=== PATIENT | male | born 1965 | race African-American/Black ===

== ENCOUNTER 2016-09-25 16:23 | Inpatient (IN) | payer OTHER ==
[2016-09-25 18:03] VITALS: BMI 33.5
--- NOTE | 2016-09-25 18:48 | HP ---
CIWA Score - CIWA Score Nausea/Vomitin Muscle Tremors: 5 Anxiety: 4-Mod. Anxious/Guarded Agitation: 4-Moderately Restless Paroxysmal Sweats: 3 Orientation: 0-Oriented Tacttile Disturbances: 0-None Auditory Disturbances: 0-None Visual Disturbances: 0-None Headache: 0-None Present CIWA-Ar Total Score: 19 Admission ROS BHS - HPI Chief Complaint: withdrawal sx. Allergies/Adverse Reactions: Allergies Allergy/AdvReac Type Severity Reaction Status Date / Time maitake mushroom Allergy Mild Nausea Verified 03/05/14 13:17 strawberry [[place]] Allergy Mild Rash Verified 03/05/14 13:17 mushrooms Allergy Mild Rash Uncoded 03/05/14 13:17 History of Present Illness: 51 y/o man with a long hx. of alcoholism is admitted for detox. Pt. has been in previous detox,reports 2 yrs sober while attending [facility]. Exam Limitations: No Limitations - Ebola screening Have you traveled outside of the country in the last 21 days: No Have you had contact with anyone from an Ebola affected area: No Have you been sick,other than usual withdrawal symptoms: No Do you have a fever: No - Review of Systems Constitutional: Diaphoresis EENT: reports: No Symptoms Reported Respiratory: reports: No Symptoms reported Cardiac: reports: No Symptoms Reported GI: reports: Nausea, Abdominal cramping : reports: No Symptoms Reported Musculoskeletal: reports: Joint Pain, Joint Swelling (RLE), Other (Chronic stasis ulcer Rt. ankle) Integumentary: reports: Sweating Neuro: reports: Tremors Endocrine: reports: No Symptoms Reported Hematology: reports: No Symptoms Reported Psychiatric: reports: No Sypmtoms Reported Other Systems: Reviewed and Negative Patient History - Patient Medical History Hx Anemia: No Hx Asthma: No Hx Chronic Obstructive Pulmonary Disease (COPD): No Hx Cancer: No Hx Cardiac Disorders: No Hx Congestive Heart Failure: No Hx Hypertension: No Hx Hypercholesterolemia: No Hx Pacemaker: No HX Cerebrovascular Accident: No Hx Seizures: No Hx Dementia: No Hx Diabetes: No Hx Gastrointestinal Disorders: No Hx Liver Disease: No Hx Genitourinary Disorders: No (GONORRRHEA AT 18 YRS OLD WITH TREATMENT) Hx Sexually Transmitted Disorders: Yes (GC at 18 y/o) Hx Renal Disease (ESRD): No Hx Thyroid Disease: No Hx Human Immunodeficiency Virus (HIV): No Hx Hepatitis C: No Hx Depression: Yes (NO MEDS now does not want psych consult) Hx Suicide Attempt: No (DENIES) Hx Bipolar Disorder: No Hx Schizophrenia: No - Patient Surgical History Past Surgical History: No - PPD History Previous Implant?: Yes Date: 03/07/14 Results: 0 mm PPD to be Administered?: Yes - Smoking Cessation Smoking history: Current every day smoker Have you smoked in the past 12 months: Yes Aproximately how many cigarettes per day: 10 Hx Chewing Tobacco Use: No Initiated information on smoking cessation: Yes 'Breaking Loose' booklet given: 09/25/16 - Substance & Tx. History Hx Alcohol Use: Yes Hx Substance Use: No Substance Use Type: Alcohol Hx Substance Use Treatment: Yes (Detox & Rehab) - Substances Abused Alcohol Route: Oral Frequency: Daily Amount used: Vodka 2 pints & Beer >1(6pack) Age of first use: 17 Date of Last Use: 09/25/16 Family Disease History - Family Disease History Family Disease History: Diabetes: Mother (), Heart Disease: Father ( ), Sister (HTN) Admission Physical Exam [facility] - Vital Signs Vital Signs: Vital Signs - 24 hr 09/25/16 18:01 Temperature 98.4 F Pulse Rate 114 H Respiratory 18 Rate Blood Pressure 168/90 - Physical General Appearance: Yes: Alcohol on Breath, Tremorous, Sweating, Anxious HEENTM: Yes: Within Normal Limits Respiratory: Yes: Chest Non-Tender, Lungs Clear, Normal Breath Sounds Neck: Yes: Supple Breast: Yes: Breast Exam Deferred Cardiology: Yes: Regular Rhythm, Regular Rate, S1, S2 Abdominal: Yes: Normal Bowel Sounds, Soft, Protuberent Genitourinary: Yes: Within Normal Limits Back: Yes: Within Normal Limits Musculoskeletal: Yes: Other Extremities: Yes: Tremors, Pedal Edema (chronic RLE edema with chronic vascular ulcer) Neurological: Yes: Fully Oriented, Alert Integumentary: Yes: Diaphoresis Lymphatic: Yes: Within Normal Limits - Diagnostic (1) PVD (peripheral vascular disease) Current Visit: Yes Status: Acute (2) Stasis leg ulcer Current Visit: Yes Status: Chronic Qualifiers: Laterality: right Qualified Code(s): I83.019 - Varicose veins of right lower extremity with ulcer of unspecified site (3) Alcohol dependence with uncomplicated withdrawal Current Visit: Yes Status: Acute Cleared for Admission [facility] - Detox or Rehab [facility] Level of Care: Medically Managed Detox Regimen/Protocol: Librium [facility] Breath Alcohol Content Breath Alcohol Content: 0.020 Urine Drug Screen - Results Drug Screen Negative: No Urine Drug Screen Results: BZO-Benzodiazepines
[2016-09-25] MEDS ORDERED: IBUPROFEN 400 MG TABLET (FP) PO PRN (19:11)
[2016-09-25] MEDS ORDERED: chlordiazePOXIDE HCL 25 MG CAPSULE PO PRN (19:11)
[2016-09-25] MEDS ORDERED: guaiFENesin/D-METHORPHAN HB 10 ML UNIT-DOSE CUPS PO PRN (19:11)
[2016-09-25] MEDS ORDERED: chlordiazePOXIDE HCL 25 MG CAPSULE PO ONE (19:11)
[2016-09-25] MEDS ORDERED: MAGNESIUM CITRATE 300 ML BOTTLE PO PRN (19:11)
[2016-09-25] MEDS ORDERED: P-EPHED 60MG/TRIPROLIDI 2.5MG TABLET PO PRN (19:11)
[2016-09-25] MEDS ORDERED: ACETAMINOPHEN 325 MG TABLET (FP) PO PRN (19:11)
[2016-09-25] MEDS ORDERED: LOPERAMIDE HCL 2 MG CAPSULE PO PRN (19:11)
[2016-09-25] MEDS ORDERED: hydrOXYzine PAMOATE 50 MG CAPSULE (FP) PO PRN (19:11)
[2016-09-25] MEDS ORDERED: diphenhydrAMINE HCL 50 MG CAPSULE PO PRN (19:11)
[2016-09-25] MEDS ORDERED: MENTHOL/PHENOL 1 EACH UD MM PRN (19:11)
[2016-09-25] MEDS ORDERED: MAG HYDROX/AL HYDROX/SIMETH 30 ML UNIT-DOSE CUP PO PRN (19:11)
[2016-09-25] MEDS ORDERED: MAGNESIUM HYDROX 2400MG/30ML ORAL SUSPENSION 30 ML CUP PO PRN (19:11)
[2016-09-25] MEDS: NICOTINE POLACRILEX 2 MG GUM BC PRN (20:26)
[2016-09-25] MEDS: NICOTINE 21 MG/24 HOURS TOPICAL PATCH TD SCH (20:49)
[2016-09-25] MEDS: chlordiazePOXIDE HCL 25 MG CAPSULE PO SCH (22:28)
[2016-09-25] MEDS: THIAMINE HCL 100 MG TABLET (FP) PO SCH (22:28)
[2016-09-26] MEDS: chlordiazePOXIDE HCL 25 MG CAPSULE PO SCH ×4 (05:43→22:31)
[2016-09-26 09:49] LABS: MCH 30.4 pg (25.7-33.7); MCHC 33.1 g/dl (32.0-35.9); MEAN CELL VOLUME 91.8 fl (80-96); MEAN PLT VOLUME 7.5 fl (7.5-11.1); PLATELET COUNT 171 K/MM3 (134-434); RDW 17.1 % (11.9-15.9); WHITE BLOOD COUNT 4.1 K/mm3 (4.0-10.0)
--- NOTE | 2016-09-26 09:52 | PN ---
S CIWA - CIWA Score Nausea/Vomitin-No Nausea/No Vomiting Muscle Tremors: 4-Moderate,w/Arms Extend Anxiety: 4-Mod. Anxious/Guarded Agitation: 4-Moderately Restless Paroxysmal Sweats: 3 Orientation: 0-Oriented Tacttile Disturbances: 0-None Auditory Disturbances: 0-None Visual Disturbances: 0-None Headache: 0-None Present CIWA-Ar Total Score: 15 BHS Progress Note (SOAP) Subjective: Sweating,interrupted sleep,anxiety,tremors,restless.Pt. was on coumadin for chronic DVT and PVD. Objective: 09/26/16 09:50 Vital Signs - 8 hr 09/26/16 09/26/16 03:50 06:15 Temperature 96.4 F L Pulse Rate 90 Respiratory 18 20 Rate Blood Pressure 146/85 Assessment: 09/26/16 09:51 Withdrawal sx. Plan: Continue detox
[2016-09-26 10:23] LABS: HIV 1 & 2 AB NEGATIVE; HIV 1 AGp24 NEGATIVE
[2016-09-26 10:27] LABS: ALBUMIN 3.1 g/dl (3.4-5.0); ALK PHOS 70 U/L (45-117); ANION GAP 9 (8-16); BILIRUBIN,TOTAL 0.7 mg/dL (0.2-1.0); CALCIUM 7.8 mg/dL (8.5-10.1); CO2 26 mmol/L (21-32); CREATININE 1.2 mg/dL (0.7-1.3); GLUCOSE,RANDOM 76 mg/dL (74-106); SGOT/AST 38 U/L (15-37); SGPT/ALT 29 U/L (12-78); TOT PROT 6.4 g/dl (6.4-8.2)
[2016-09-26] MEDS: PRENATAL VITAMINS W/ FOLIC ACID TABLET (FP) PO SCH (10:34)
[2016-09-26] MEDS: NICOTINE 21 MG/24 HOURS TOPICAL PATCH TD SCH (10:34)
[2016-09-26] MEDS: NICOTINE POLACRILEX 2 MG GUM BC PRN (10:34)
[2016-09-26] MEDS: MUPIROCIN 2% TOPICAL OINTMENT 22 GM TUBE TP SCH (11:40)
--- NOTE | 2016-09-26 12:41 | EKG ---
Test Reason : Blood Pressure : / mmHG Vent. Rate : 109 BPM Atrial Rate : 109 BPM P-R Int : 154 ms QRS Dur : 080 ms QT Int : 334 ms P-R-T Axes : 056 -34 029 degrees QTc Int : 449 ms SINUS TACHYCARDIA POSSIBLE LEFT ATRIAL ENLARGEMENT LEFT AXIS DEVIATION ABNORMAL ECG NO PREVIOUS ECGS AVAILABLE Confirmed by WINSTON RATLIFF, NIA ([id number]) on 09/26/2016 12:41:00 PM Referred By: Confirmed By:NIA MONTERO MD
[2016-09-26 13:49] LABS: URINE APPEARANCE CLEAR; URINE BILIRUBIN NEGATIVE (NEGATIVE); URINE BLOOD NEGATIVE (NEGATIVE); URINE COLOR LTYELLOW; URINE GLUCOSE (UA) NEGATIVE (NEGATIVE); URINE KETONE NEGATIVE (NEGATIVE); URINE LEUK ESTERASE NEGATIVE (NEGATIVE); URINE NITRITE NEGATIVE (NEGATIVE); URINE UROBILINOGEN NEGATIVE E.U./dl (0.2-1.0)
[2016-09-26 13:50] LABS: URINE PROTEIN 2+ (NEGATIVE)
[2016-09-26 14:01] LABS: URINE HYALINE CAST 1 /lpf; URINE MUCUS RARE; URINE RBC 1 /hpf (0-3); URINE WBC 1 /hpf (3-5)
[2016-09-26 14:11] LABS: INR 1.23 (0.82-1.09); PROTHROMBIN TIME (PATIENT) 13.6 SEC (9.98-11.88)
[2016-09-26] MEDS: WARFARIN NA 10 MG TABLET (FP) PO SCH (17:16)
[2016-09-26] MEDS: THIAMINE HCL 100 MG TABLET (FP) PO SCH (22:31)
[2016-09-27] MEDS: chlordiazePOXIDE HCL 25 MG CAPSULE PO SCH ×3 (05:17→17:15)
--- NOTE | 2016-09-27 09:40 | PN ---
[facility] CIWA - CIWA Score Nausea/Vomitin-No Nausea/No Vomiting Muscle Tremors: 3 Anxiety: 3 Agitation: 3 Paroxysmal Sweats: 3 Orientation: 0-Oriented Tacttile Disturbances: 1-Very Mild Itch/Numbness Auditory Disturbances: 0-None Visual Disturbances: 0-None Headache: 0-None Present CIWA-Ar Total Score: 13 BHS Progress Note (SOAP) Subjective: Anxiety,tremors,sweating,interrupted sleep,restless Objective: 09/27/16 09:38 Vital Signs - 8 hr 09/27/16 09/27/16 09/27/16 03:24 06:03 09:30 Temperature 96.1 F L 98.1 F Pulse Rate 73 81 Respiratory 18 18 20 Rate Blood Pressure 157/95 163/90 Laboratory Results - last 24 hr 09/26/16 09/26/16 09/26/16 07:00 07:00 07:00 WBC 4.1 RBC 3.65 L Hgb 11.1 L D Hct 33.5 L MCV 91.8 MCHC 33.1 RDW 17.1 H Plt Count 171 D MPV 7.5 D INR Sodium 142 Potassium 3.5 D Chloride 107 Carbon Dioxide 26 Anion Gap 9 BUN 17 Creatinine 1.2 Creat Clearance w eGFR > 60 Random Glucose 76 D Calcium 7.8 L Total Bilirubin 0.7 D AST 38 H D ALT 29 Alkaline Phosphatase 70 Total Protein 6.4 Albumin 3.1 L Urine Color Urine Appearance Urine pH Ur Specific [place] Urine Protein Urine Glucose (UA) Urine Ketones Urine Blood Urine Nitrite Urine Bilirubin Urine Urobilinogen Ur Leukocyte Esterase Urine RBC Urine WBC Hyaline Casts Urine Mucus RPR Titer Nonreactive HIV 1&2 Antibody Screen HIV P24 Antigen 09/26/16 09/26/16 09/26/16 07:00 09:45 11:35 WBC RBC Hgb Hct MCV MCHC RDW Plt Count MPV INR 1.23 H Sodium Potassium Chloride Carbon Dioxide Anion Gap BUN Creatinine Creat Clearance w eGFR Random Glucose Calcium Total Bilirubin AST ALT Alkaline Phosphatase Total Protein Albumin Urine Color Ltyellow Urine Appearance Clear Urine pH 6.0 Ur Specific [place] 1.017 Urine Protein 2+ H Urine Glucose (UA) Negative Urine Ketones Negative Urine Blood Negative Urine Nitrite Negative Urine Bilirubin Negative Urine Urobilinogen Negative Ur Leukocyte Esterase Negative Urine RBC 1 Urine WBC 1 Hyaline Casts 1 Urine Mucus Rare RPR Titer HIV 1&2 Antibody Screen Negative HIV P24 Antigen Negative labs noted,INR 1.23 Assessment: 09/27/16 09:39 Withdrawal sx. Plan: Continue detox
[2016-09-27] MEDS: MUPIROCIN 2% TOPICAL OINTMENT 22 GM TUBE TP SCH (10:27)
[2016-09-27] MEDS: PRENATAL VITAMINS W/ FOLIC ACID TABLET (FP) PO SCH (10:27)
[2016-09-27] MEDS: NICOTINE 21 MG/24 HOURS TOPICAL PATCH TD SCH (10:28)
[2016-09-27] MEDS: WARFARIN NA 10 MG TABLET (FP) PO SCH (17:15)
[2016-09-27] MEDS: NICOTINE POLACRILEX 2 MG GUM BC PRN (17:42)
[2016-09-27] MEDS: THIAMINE HCL 100 MG TABLET (FP) PO SCH (22:31)
[2016-09-27] MEDS: chlordiazePOXIDE 5 MG CAPSULE PO SCH (22:31)
[2016-09-28] MEDS: chlordiazePOXIDE 5 MG CAPSULE PO SCH ×3 (06:26→17:34)
[2016-09-28] MEDS: PRENATAL VITAMINS W/ FOLIC ACID TABLET (FP) PO SCH (10:56)
[2016-09-28] MEDS: NICOTINE 21 MG/24 HOURS TOPICAL PATCH TD SCH (10:56)
[2016-09-28] MEDS: MUPIROCIN 2% TOPICAL OINTMENT 22 GM TUBE TP SCH (10:56)
--- NOTE | 2016-09-28 16:35 | PN ---
BHS Progress Note (SOAP) Subjective: Sweating,interrupted sleep,restless Objective: 09/28/16 16:32 Vital Signs - 8 hr 09/28/16 09/28/16 09:20 13:14 Temperature 96.5 F L 96 F L Pulse Rate 74 86 Respiratory 18 20 Rate Blood Pressure 159/91 161/85 Laboratory Last Values WBC 4.1 K/mm3 (4.0-10.0) 09/26/16 07:00 RBC 3.65 M/mm3 (4.00-5.60) L 09/26/16 07:00 Hgb 11.1 GM/dL (11.7-16.9) L D 09/26/16 07:00 Hct 33.5 % (35.4-49) L 09/26/16 07:00 MCV 91.8 fl (80-96) 09/26/16 07:00 MCHC 33.1 g/dl (32.0-35.9) 09/26/16 07:00 RDW 17.1 % (11.9-15.9) H 09/26/16 07:00 Plt Count 171 K/MM3 (134-434) D 09/26/16 07:00 MPV 7.5 fl (7.5-11.1) D 09/26/16 07:00 INR 1.23 (0.82-1.09) H 09/26/16 11:35 Sodium 142 mmol/L (136-145) 09/26/16 07:00 Potassium 3.5 mmol/L (3.5-5.1) D 09/26/16 07:00 Chloride 107 mmol/L (98-107) 09/26/16 07:00 Carbon Dioxide 26 mmol/L (21-32) 09/26/16 07:00 Anion Gap 9 (8-16) 09/26/16 07:00 BUN 17 mg/dL (7-18) 09/26/16 07:00 Creatinine 1.2 mg/dL (0.7-1.3) 09/26/16 07:00 Creat Clearance w eGFR > 60 (>60) 09/26/16 07:00 Random Glucose 76 mg/dL (74-106) D 09/26/16 07:00 Calcium 7.8 mg/dL (8.5-10.1) L 09/26/16 07:00 Total Bilirubin 0.7 mg/dL (0.2-1.0) D 09/26/16 07:00 AST 38 U/L (15-37) H D 09/26/16 07:00 ALT 29 U/L (12-78) 09/26/16 07:00 Alkaline Phosphatase 70 U/L (45-117) 09/26/16 07:00 Total Protein 6.4 g/dl (6.4-8.2) 09/26/16 07:00 Albumin 3.1 g/dl (3.4-5.0) L 09/26/16 07:00 Urine Color L[place]ellow 09/26/16 09:45 Urine Appearance Clear 09/26/16 09:45 Urine pH 6.0 (5.0-8.0) 09/26/16 09:45 Ur Specific [place] 1.017 (1.001-1.035) 09/26/16 09:45 Urine Protein 2+ (NEGATIVE) H 09/26/16 09:45 Urine Glucose (UA) Negative (NEGATIVE) 09/26/16 09:45 Urine Ketones Negative (NEGATIVE) 09/26/16 09:45 Urine Blood Negative (NEGATIVE) 09/26/16 09:45 Urine Nitrite Negative (NEGATIVE) 09/26/16 09:45 Urine Bilirubin Negative (NEGATIVE) 09/26/16 09:45 Urine Urobilinogen Negative E.U./dl (0.2-1.0) 09/26/16 09:45 Ur Leukocyte Esterase Negative (NEGATIVE) 09/26/16 09:45 Urine RBC 1 /hpf (0-3) 09/26/16 09:45 Urine WBC 1 /hpf (3-5) 09/26/16 09:45 Hyaline Casts 1 /lpf 09/26/16 09:45 Urine Mucus Rare 09/26/16 09:45 RPR Titer Nonreactive (NONREACTIVE) 09/26/16 07:00 HIV 1&2 Antibody Screen Negative 09/26/16 07:00 HIV P24 Antigen Negative 09/26/16 07:00 labs noted.Pt. is receiving wet to dry treatment to rt. leg ulcer as well as bactroban. Assessment: 09/28/16 16:34 Withdrawal sx Chronic rt. leg ulcer Plan: Continue detox Continue wound care
[2016-09-28] MEDS: WARFARIN NA 10 MG TABLET (FP) PO SCH (17:34)
[2016-09-28] MEDS: NICOTINE POLACRILEX 2 MG GUM BC PRN (19:01)
[2016-09-28] MEDS: chlordiazePOXIDE HCL 10 MG CAPSULE PO SCH (22:40)
[2016-09-28] MEDS: THIAMINE HCL 100 MG TABLET (FP) PO SCH (22:40)
[2016-09-29] MEDS: chlordiazePOXIDE HCL 10 MG CAPSULE PO SCH (06:36)
--- NOTE | 2016-09-29 08:06 | PN ---
S Progress Note (SOAP) Subjective: ALERT,NO COMPLAINT Objective: 09/29/16 08:05 Vital Signs Temperature 97.1 F L 09/28/16 22:12 Pulse Rate 89 09/28/16 22:12 Respiratory Rate 18 09/29/16 06:32 Blood Pressure 163/96 09/28/16 22:12 O2 Sat by Pulse Oximetry (%) Assessment: 09/29/16 08:05 DETOX COMPLETED,NO WITHDRAWAL SYMPTOM Plan: DISCHARGE TODAY,FOLLOW UP WITH AFTER CARE PROGRAM ARRANGEMENT
--- NOTE | 2016-09-29 08:09 | DS ---
[facility] Detox Discharge Summary Admission Date: 09/25/16 Discharge Date: 09/29/16 - History Present History: Alcohol Dependence Additional Comments: FOLLOW UP WITH AFTER CARE PROGRAM ARRANGEMENT AND PMD FOR MEDICAL PROBLEM Pertinent Past History: PVD STASIS LEG ULCER - Physical Exam Results Vital Signs: Vital Signs Temperature 97.1 F L 09/28/16 22:12 Pulse Rate 89 09/28/16 22:12 Respiratory Rate 18 09/29/16 06:32 Blood Pressure 163/96 09/28/16 22:12 O2 Sat by Pulse Oximetry (%) Pertinent Admission Physical Exam Findings: WITHDRAWAL SYMPTOM - Treatment Hospital Course: Detox Protocol Followed, Detoxed Safely, Responded well, Discharged Condition Good, Rehab Referral Accepted Patient has Accepted a Rehab Referral to: [facility] - Medication Discharge Medications: Ambulatory Orders Warfarin Sodium [Coumadin] 10 mg PO DAILY 09/25/16 - AMA Did Patient Leave Against Medical Advice: No
--- NOTE | 2016-09-29 08:32 | PN ---
[facility] Progress Note Note: MATTHEW WILL FOLLOWED UP WITH [facility] FOR MONITORING OF COUMADIN AND INR UPON DISCHARGE
[2016-09-29 09:17] VITALS: BP 171/97; PULSE 86; TEMP 96.4
== END 2016-09-29 09:47 | disposition home or self-care (01) | DRG 775 ==
LOC: YASAS 16:23 → Y3N 19:22
PROVIDERS: ADMIT Internal Medicine; ATTEND Internal Medicine
PROC: HZ2ZZZZ Detoxification Services for Substance Abuse Treatment (ICD-10-PCS; principal; 2016-09-25)
DX: F10.230 Alcohol dependence with withdrawal, uncomplicated (principal); F17.210 Nicotine dependence, cigarettes, uncomplicated; I83.019 Varicose veins of right lower extremity with ulcer of unspecified site; I73.9 Peripheral vascular disease, unspecified; Z79.01 Long term (current) use of anticoagulants; Z87.438 Personal history of other diseases of male genital organs; R60.9 Edema, unspecified
CPT/HCPCS: 36415; 80053; 81003; 81015; 85027; 85610; 86593; 87389; 93005; 93010

== ENCOUNTER 2017-03-10 14:12 | Inpatient (IN) | payer OTHER ==
[2017-03-10 15:53] VITALS: BMI 33.5
--- NOTE | 2017-03-10 20:05 | HP ---
CIWA Score - CIWA Score Nausea/Vomitin-Mild Nausea/No Vomiting Muscle Tremors: 4-Moderate,w/Arms Extend Anxiety: 4-Mod. Anxious/Guarded Agitation: 4-Moderately Restless Paroxysmal Sweats: 1-Minimal Palms Moist Orientation: 1-Uncertain about Date Tacttile Disturbances: 0-None Auditory Disturbances: 0-None Visual Disturbances: 0-None Headache: 0-None Present CIWA-Ar Total Score: 15 Admission ROS S - HPI Chief Complaint: WITHDRAWAL SX Allergies/Adverse Reactions: Allergies Allergy/AdvReac Type Severity Reaction Status Date / Time maitake mushroom Allergy Mild Nausea Verified 03/10/17 18:45 strawberry [[place]] Allergy Mild Rash Verified 03/10/17 18:45 mushrooms Allergy Mild Rash Uncoded 03/10/17 18:45 History of Present Illness: 51 YEARS OLD MALE WITH LONG HISTORY OF ALCOHOL NICOTINE DEPENDENCE, HAS VASCULAR DISEASE AND CHRONIC WOULD RIGHT LOWER LEG X 1+ YEAR, FILTER 2007 LEFT GROIN, TREATED WITH COUMADIN LAST DOSE A MONTH AGO, AND DEPRESSION IS ADMITTED TO DETOX Exam Limitations: No Limitations - Ebola screening Have you traveled outside of the country in the last 21 days: No Have you had contact with anyone from an Ebola affected area: No Have you been sick,other than usual withdrawal symptoms: No Do you have a fever: No - Review of Systems Constitutional: Changes in sleep, Weight Stable EENT: reports: Blurred Vision (EYE GLASSES) Respiratory: reports: No Symptoms reported Cardiac: reports: No Symptoms Reported GI: reports: Nausea, Poor Fluid Intake, Abdominal cramping : reports: No Symptoms Reported Musculoskeletal: reports: Joint Pain (RIGHT LOWER WOUND) Integumentary: reports: Change in Color (BOTH LEGS), Lesions (RIGHT LOWER LEG ANKLE X 1 YEARS WET + DRY DRESSING AFTER SHOWER) Neuro: reports: Tremors Endocrine: reports: No Symptoms Reported Hematology: reports: No Symptoms Reported, Blood Clots (FILTER PLACEMENT LEFT GROIN) Psychiatric: reports: Judgement Intact, Depressed Other Systems: Reviewed and Negative Patient History - Patient Medical History Hx Anemia: No Hx Asthma: No Hx Chronic Obstructive Pulmonary Disease (COPD): No Hx Cancer: No Hx Cardiac Disorders: No Hx Congestive Heart Failure: No Hx Hypertension: No Hx Hypercholesterolemia: No Hx Pacemaker: No HX Cerebrovascular Accident: No Hx Seizures: No Hx Dementia: No Hx Diabetes: No Hx Gastrointestinal Disorders: No Hx Liver Disease: No Hx Genitourinary Disorders: No Hx Sexually Transmitted Disorders: No Hx Renal Disease (ESRD): No Hx Thyroid Disease: No Hx Human Immunodeficiency Virus (HIV): No Hx Hepatitis C: No Hx Depression: Yes Hx Suicide Attempt: No Hx Bipolar Disorder: No Hx Schizophrenia: No - Patient Surgical History Past Surgical History: No Hx Neurologic Surgery: No Hx Cataract Extraction: No Hx Cardiac Surgery: No Hx Lung Surgery: No Hx Breast Surgery: No Hx Breast Biopsy: No Hx Abdominal Surgery: No Hx Appendectomy: No Hx Cholecystectomy: No Hx Genitourinary Surgery: No Hx Orthopedic Surgery: No - PPD History Previous Implant?: Yes Documented Results: Negative w/proof Implanted On Prior [facility] Admission?: Yes Date: 09/27/16 Results: 0 mm PPD to be Administered?: No - Smoking Cessation Smoking history: Current every day smoker Have you smoked in the past 12 months: Yes Aproximately how many cigarettes per day: 10 Hx Chewing Tobacco Use: No Initiated information on smoking cessation: Yes 'Breaking Loose' booklet given: 03/10/17 - Substance & Tx. History Hx Alcohol Use: Yes Hx Substance Use: No Substance Use Type: Alcohol Hx Substance Use Treatment: Yes (09/19-09/29/16 [facility] - Substances Abused Alcohol Route: Oral Frequency: Daily Amount used: liquor- 2 pints, beer- 1 six pack Age of first use: 18 Date of Last Use: 03/10/17 Family Disease History - Family Disease History Family Disease History: Diabetes: Mother (), Heart Disease: Father ( ), Sister (HTN) Admission Physical Exam S - Vital Signs Vital Signs: Vital Signs - 24 hr 03/10/17 15:51 Temperature 98.9 F Pulse Rate 94 H Respiratory 18 Rate Blood Pressure 157/88 - Physical General Appearance: Yes: Appropriately Dressed, Moderate Distress, Tremorous, Irritable, Sweating, Anxious HEENTM: Yes: Hearing grossly Normal, Normal ENT Inspection, Normocephalic, Normal Voice, Other (EYE GLASSES) Respiratory: Yes: Chest Non-Tender, Lungs Clear, Normal Breath Sounds, No Respiratory Distress, No Accessory Muscle Use, Other (SMOKER'S COUSH) Neck: Yes: Supple, Trachea in good position Breast: Yes: Breasts Symetrical Cardiology: Yes: Regular Rhythm, S1, S2, Tachycardia Abdominal: Yes: Non Tender, Soft Genitourinary: Yes: Within Normal Limits Back: Yes: Within Normal Limits Musculoskeletal: Yes: full range of Motion, Gait Steady, Joint swelling (BOTH LEGS) Extremities: Yes: Non-Tender, Tremors, Coldness (LEGS), Pedal Edema (BOTH ANKLES ), Swelling (BOTH LEGS) Neurological: Yes: Alert, Motor Strength 5/5, Normal Response, Depressed Affect Integumentary: Yes: Dry, Warm, Pitting Edema (POOR VASCULAR CONDITION BOTH LEGS SWELL DISCOLORATION ANKLES LIMITED MOBILITY), Other (RIGHT ANKLE ULCER X 1+ YEAR WET TO DRY DRESSING DAILY AFTER SHOWER) Lymphatic: Yes: Within Normal Limits - Diagnostic (1) Alcohol dependence with uncomplicated withdrawal Current Visit: Yes Status: Acute (2) Stasis leg ulcer Current Visit: Yes Status: Chronic Qualifiers: Laterality: bilateral Qualified Code(s): I83.019 - Varicose veins of right lower extremity with ulcer of unspecified site; I83.029 - Varicose veins of left lower extremity with ulcer of unspecified site (3) Encounter for monitoring coumadin therapy Current Visit: Yes Status: Chronic (4) Depression (emotion) Current Visit: Yes Status: Suspected Qualifiers: Depression Type: dysthymia Qualified Code(s): F34.1 - Dysthymic disorder (5) Blood clot in vein Current Visit: Yes Status: Chronic Comment: COUMADIN INR PENDING Cleared for Admission [facility] - Detox or Rehab [facility] Level of Care: Medically Managed Detox Regimen/Protocol: Librium [facility] Breath Alcohol Content Breath Alcohol Content: 0 Urine Drug Screen - Results Drug Screen Negative: No Urine Drug Screen Results: BZO-Benzodiazepines
[2017-03-10] MEDS ORDERED: LOPERAMIDE HCL 2 MG CAPSULE PO PRN (20:09)
[2017-03-10] MEDS ORDERED: IBUPROFEN 400 MG TABLET (FP) PO PRN (20:09)
[2017-03-10] MEDS ORDERED: chlordiazePOXIDE HCL 25 MG CAPSULE PO ONE (20:09)
[2017-03-10] MEDS ORDERED: NICOTINE POLACRILEX 2 MG GUM BC PRN (20:09)
[2017-03-10] MEDS ORDERED: MAGNESIUM HYDROX 2400MG/30ML ORAL SUSPENSION 30 ML CUP PO PRN (20:09)
[2017-03-10] MEDS ORDERED: MAG HYDROX/AL HYDROX/SIMETH 30 ML UNIT-DOSE CUP PO PRN (20:09)
[2017-03-10] MEDS ORDERED: MAGNESIUM CITRATE 300 ML BOTTLE PO PRN (20:09)
[2017-03-10] MEDS ORDERED: chlordiazePOXIDE HCL 25 MG CAPSULE PO PRN (20:09)
[2017-03-10] MEDS ORDERED: guaiFENesin/D-METHORPHAN HB 10 ML UNIT-DOSE CUPS PO PRN (20:09)
[2017-03-10] MEDS ORDERED: ACETAMINOPHEN 325 MG TABLET (FP) PO PRN (20:09)
[2017-03-10] MEDS ORDERED: diphenhydrAMINE HCL 50 MG CAPSULE PO PRN (20:09)
[2017-03-10] MEDS ORDERED: MENTHOL/PHENOL 1 EACH UD MM PRN (20:09)
[2017-03-10] MEDS ORDERED: P-EPHED 60MG/TRIPROLIDI 2.5MG TABLET PO PRN (20:09)
[2017-03-10] MEDS ORDERED: hydrOXYzine PAMOATE 50 MG CAPSULE (FP) PO PRN (20:09)
[2017-03-10] MEDS ORDERED: cloNIDine HCL 0.1 MG TABLET PO ONE (20:51)
[2017-03-10] MEDS: WARFARIN NA 5 MG TABLET (UD) PO SCH (22:00)
[2017-03-10] MEDS: THIAMINE HCL 100 MG TABLET (FP) PO SCH (22:20)
[2017-03-10] MEDS: chlordiazePOXIDE HCL 25 MG CAPSULE PO SCH (22:20)
[2017-03-11 00:17] LABS: URINE APPEARANCE CLEAR; URINE BILIRUBIN NEGATIVE (NEGATIVE); URINE BLOOD 2+ (NEGATIVE); URINE COLOR YELLOW; URINE GLUCOSE (UA) NEGATIVE (NEGATIVE); URINE KETONE NEGATIVE (NEGATIVE); URINE LEUK ESTERASE NEGATIVE (NEGATIVE); URINE NITRITE NEGATIVE (NEGATIVE); URINE UROBILINOGEN NEGATIVE mg/dL (0.2-1.0)
[2017-03-11 00:18] LABS: URINE PROTEIN 3+ (NEGATIVE)
[2017-03-11 00:25] LABS: URINE MUCUS RARE; URINE RBC 18 /hpf (0-3); URINE WBC 2 /hpf (3-5)
[2017-03-11] MEDS: chlordiazePOXIDE HCL 25 MG CAPSULE PO SCH ×4 (06:24→22:16)
[2017-03-11] MEDS ORDERED: cloNIDine HCL 0.1 MG TABLET PO ONE (07:53)
--- NOTE | 2017-03-11 09:29 | EKG ---
Test Reason : Blood Pressure : / mmHG Vent. Rate : 082 BPM Atrial Rate : 082 BPM P-R Int : 152 ms QRS Dur : 090 ms QT Int : 376 ms P-R-T Axes : 061 -22 034 degrees QTc Int : 439 ms NORMAL SINUS RHYTHM POSSIBLE LEFT ATRIAL ENLARGEMENT BORDERLINE ECG WHEN COMPARED WITH ECG OF 25-SEP-2016 19:36, NO SIGNIFICANT CHANGE WAS FOUND Confirmed by MD DEN, MELY ([id number]) on 03/11/2017 9:29:16 AM Referred By: Confirmed By:MELY CRENSHAW MD
[2017-03-11] MEDS: PRENATAL VITAMINS W/ FOLIC ACID TABLET (FP) PO SCH (10:20)
[2017-03-11] MEDS: NICOTINE 14 MG/24 HOURS TOPICAL PATCH TD SCH (10:22)
[2017-03-11 11:01] LABS: MCH 31.9 pg (25.7-33.7); MCHC 32.5 g/dl (32.0-35.9); MEAN CELL VOLUME 98.3 fl (80-96); MEAN PLT VOLUME 7.7 fl (7.5-11.1); PLATELET COUNT 214 K/MM3 (134-434)
[2017-03-11 11:16] LABS: INR 1.06 (0.82-1.09); PROTHROMBIN TIME (PATIENT) 11.7 SEC (9.98-11.88)
[2017-03-11 11:19] LABS: ALBUMIN 3.4 g/dl (3.4-5.0); ALK PHOS 97 U/L (45-117); ANION GAP 11 (8-16); BILIRUBIN,TOTAL 0.8 mg/dL (0.2-1.0); CALCIUM 8.7 mg/dL (8.5-10.1); CO2 27 mmol/L (21-32); CREATININE 1.3 mg/dL (0.7-1.3); GLUCOSE,RANDOM 100 mg/dL (74-106); SGOT/AST 35 U/L (15-37); SGPT/ALT 30 U/L (12-78); TOT PROT 7.3 g/dl (6.4-8.2)
--- NOTE | 2017-03-11 12:04 | CONSULT ---
[facility] Psychiatric Consult - Data Date of interview: 03/11/17 Admission source: [facility] Identifying data: Patient refused psychiatric evaluation.Staff is made aware.
--- NOTE | 2017-03-11 14:45 | PN ---
[facility] CIWA - CIWA Score Nausea/Vomitin-Mild Nausea/No Vomiting Muscle Tremors: 4-Moderate,w/Arms Extend Anxiety: 3 Agitation: 1-Slight > Activity Paroxysmal Sweats: 3 Orientation: 0-Oriented Tacttile Disturbances: 3-Moderate Itch/Numb/Burn Auditory Disturbances: 2-Mild Harshness/Frighten Visual Disturbances: 0-None Headache: 0-None Present CIWA-Ar Total Score: 17 [facility] Progress Note (SOAP) Subjective: Tremors, Fatigue, Diarrhea, Body Aces, sweating. Objective: PT. A & O X 3. NO ACUTE DISTRESS. PT. DENIES CHEST PAIN. 03/11/17 14:42 Vital Signs Temperature 97.2 F L 03/11/17 13:41 Pulse Rate 85 03/11/17 13:41 Respiratory Rate 20 03/11/17 13:41 Blood Pressure 144/93 03/11/17 13:41 O2 Sat by Pulse Oximetry (%) Laboratory Tests 03/10/17 03/11/17 03/11/17 20:20 07:50 07:50 WBC 5.0 RBC 3.87 L Hgb 12.3 D Hct 38.0 MCV 98.3 H MCH 31.9 MCHC 32.5 RDW 18.0 H Plt Count 214 D MPV 7.7 INR 1.06 Sodium Potassium Chloride Carbon Dioxide Anion Gap BUN Creatinine Creat Clearance w eGFR Random Glucose Calcium Total Bilirubin AST ALT Alkaline Phosphatase Total Protein Albumin Urine Color Yellow Urine Appearance Clear Urine pH 5.0 Ur Specific [place] >= 1.030 H Urine Protein 3+ H Urine Glucose (UA) Negative Urine Ketones Negative Urine Blood 2+ H Urine Nitrite Negative Urine Bilirubin Negative Urine Urobilinogen Negative Ur Leukocyte Esterase Negative Urine RBC 18 Urine WBC 2 Ur Epithelial Cells Rare Urine Mucus Rare 03/11/17 07:50 WBC RBC Hgb Hct MCV MCH MCHC RDW Plt Count MPV INR Sodium 141 Potassium 3.5 Chloride 103 Carbon Dioxide 27 Anion Gap 11 BUN 14 Creatinine 1.3 Creat Clearance w eGFR 58.20 Random Glucose 100 D Calcium 8.7 Total Bilirubin 0.8 AST 35 ALT 30 Alkaline Phosphatase 97 D Total Protein 7.3 Albumin 3.4 Urine Color Urine Appearance Urine pH Ur Specific [place] Urine Protein Urine Glucose (UA) Urine Ketones Urine Blood Urine Nitrite Urine Bilirubin Urine Urobilinogen Ur Leukocyte Esterase Urine RBC Urine WBC Ur Epithelial Cells Urine Mucus LABS NOTED. Assessment: 03/11/17 14:43 WITHDRAWAL SYMPTOMS. Plan: CONTINUE DETOX. START AMLODIPINE, 5 MG PO DAILY FOR ELEVATED BP. REPEAT UA. INCREASE DAILY PO FLUID INTAKE.
[2017-03-11] MEDS: amLODIPine BESYLATE 5 MG TABLET (FP) PO SCH (16:15)
[2017-03-11] MEDS: WARFARIN NA 5 MG TABLET (UD) PO SCH (17:43)
[2017-03-11] MEDS: THIAMINE HCL 100 MG TABLET (FP) PO SCH (22:16)
[2017-03-11 22:33] LABS: URINE APPEARANCE CLEAR; URINE BILIRUBIN NEGATIVE (NEGATIVE); URINE BLOOD NEGATIVE (NEGATIVE); URINE COLOR YELLOW; URINE GLUCOSE (UA) NEGATIVE (NEGATIVE); URINE KETONE NEGATIVE (NEGATIVE); URINE LEUK ESTERASE NEGATIVE (NEGATIVE); URINE NITRITE NEGATIVE (NEGATIVE); URINE UROBILINOGEN NEGATIVE mg/dL (0.2-1.0)
[2017-03-11 22:39] LABS: URINE PROTEIN 3+ (NEGATIVE)
[2017-03-11 22:43] LABS: URINE BACTERIA RARE /hpf (NONE SEEN); URINE MUCUS RARE; URINE RBC 3 /hpf (0-3); URINE WBC 2 /hpf (3-5)
[2017-03-12] MEDS: chlordiazePOXIDE HCL 25 MG CAPSULE PO SCH ×3 (05:55→17:23)
[2017-03-12] MEDS: PRENATAL VITAMINS W/ FOLIC ACID TABLET (FP) PO SCH (10:13)
[2017-03-12] MEDS: amLODIPine BESYLATE 5 MG TABLET (FP) PO SCH (10:13)
[2017-03-12] MEDS: NICOTINE 14 MG/24 HOURS TOPICAL PATCH TD SCH (10:31)
--- NOTE | 2017-03-12 14:04 | PN ---
S CIWA - CIWA Score Nausea/Vomitin Muscle Tremors: 4-Moderate,w/Arms Extend Anxiety: 3 Agitation: 3 Paroxysmal Sweats: 3 Orientation: 0-Oriented Tacttile Disturbances: 1-Very Mild Itch/Numbness Auditory Disturbances: 0-None Visual Disturbances: 0-None Headache: 1-Very Mild CIWA-Ar Total Score: 17 S Progress Note (SOAP) Subjective: Sweating, chills, tremor, nausea, back pain Objective: 03/12/17 14:02 Last Vital Signs Temp Pulse Resp BP Pulse Ox 97.5 F L 68 18 150/91 03/12/17 13:07 03/12/17 13:07 03/12/17 13:07 03/12/17 13:07 Laboratory Tests 03/10/17 03/11/17 03/11/17 20:20 07:50 07:50 WBC 5.0 RBC 3.87 L Hgb 12.3 D Hct 38.0 MCV 98.3 H MCH 31.9 MCHC 32.5 RDW 18.0 H Plt Count 214 D MPV 7.7 INR 1.06 Sodium Potassium Chloride Carbon Dioxide Anion Gap BUN Creatinine Creat Clearance w eGFR Random Glucose Calcium Total Bilirubin AST ALT Alkaline Phosphatase Total Protein Albumin Urine Color Yellow Urine Appearance Clear Urine pH 5.0 Ur Specific [place] >= 1.030 H Urine Protein 3+ H Urine Glucose (UA) Negative Urine Ketones Negative Urine Blood 2+ H Urine Nitrite Negative Urine Bilirubin Negative Urine Urobilinogen Negative Ur Leukocyte Esterase Negative Urine RBC 18 Urine WBC 2 Ur Epithelial Cells Rare Urine Bacteria Urine Mucus Rare RPR Titer 03/11/17 03/11/17 03/11/17 07:50 07:50 22:00 WBC RBC Hgb Hct MCV MCH MCHC RDW Plt Count MPV INR Sodium 141 Potassium 3.5 Chloride 103 Carbon Dioxide 27 Anion Gap 11 BUN 14 Creatinine 1.3 Creat Clearance w eGFR 58.20 Random Glucose 100 D Calcium 8.7 Total Bilirubin 0.8 AST 35 ALT 30 Alkaline Phosphatase 97 D Total Protein 7.3 Albumin 3.4 Urine Color Yellow Urine Appearance Clear Urine pH 6.0 Ur Specific [place] >= 1.030 H Urine Protein 3+ H Urine Glucose (UA) Negative Urine Ketones Negative Urine Blood Negative Urine Nitrite Negative Urine Bilirubin Negative Urine Urobilinogen Negative Ur Leukocyte Esterase Negative Urine RBC 3 Urine WBC 2 Ur Epithelial Cells Rare Urine Bacteria Rare Urine Mucus Rare RPR Titer Nonreactive Labs noted: INR 1.06, patient is on coumadin 10mg PO qhs Assessment: 03/12/17 14:03 Withdrawal symptoms Plan: Continue detox PT/INR ordered in AM (patient on coumadin for DVT)
[2017-03-12] MEDS: WARFARIN NA 5 MG TABLET (UD) PO SCH (17:23)
[2017-03-12] MEDS: chlordiazePOXIDE 5 MG CAPSULE PO SCH (22:03)
[2017-03-12] MEDS: THIAMINE HCL 100 MG TABLET (FP) PO SCH (22:03)
[2017-03-13] MEDS: chlordiazePOXIDE 5 MG CAPSULE PO SCH ×3 (06:10→17:39)
--- NOTE | 2017-03-13 09:27 | PN ---
[facility] Progress Note (SOAP) Subjective: nausea, sweats, interrupted sleep, anxiety, tremors Objective: 03/13/17 09:27 Vital Signs - 8 hr 03/13/17 03/13/17 03/13/17 03:34 06:21 09:04 Temperature 97.0 F L Pulse Rate 80 Respiratory 18 18 18 Rate Blood Pressure 142/96 Laboratory Tests 03/10/17 03/11/17 03/11/17 20:20 07:50 07:50 WBC 5.0 RBC 3.87 L Hgb 12.3 D Hct 38.0 MCV 98.3 H MCH 31.9 MCHC 32.5 RDW 18.0 H Plt Count 214 D MPV 7.7 INR 1.06 Sodium Potassium Chloride Carbon Dioxide Anion Gap BUN Creatinine Creat Clearance w eGFR Random Glucose Calcium Total Bilirubin AST ALT Alkaline Phosphatase Total Protein Albumin Urine Color Yellow Urine Appearance Clear Urine pH 5.0 Ur Specific [place] >= 1.030 H Urine Protein 3+ H Urine Glucose (UA) Negative Urine Ketones Negative Urine Blood 2+ H Urine Nitrite Negative Urine Bilirubin Negative Urine Urobilinogen Negative Ur Leukocyte Esterase Negative Urine RBC 18 Urine WBC 2 Ur Epithelial Cells Rare Urine Bacteria Urine Mucus Rare RPR Titer 03/11/17 03/11/17 03/11/17 07:50 07:50 22:00 WBC RBC Hgb Hct MCV MCH MCHC RDW Plt Count MPV INR Sodium 141 Potassium 3.5 Chloride 103 Carbon Dioxide 27 Anion Gap 11 BUN 14 Creatinine 1.3 Creat Clearance w eGFR 58.20 Random Glucose 100 D Calcium 8.7 Total Bilirubin 0.8 AST 35 ALT 30 Alkaline Phosphatase 97 D Total Protein 7.3 Albumin 3.4 Urine Color Yellow Urine Appearance Clear Urine pH 6.0 Ur Specific [place] >= 1.030 H Urine Protein 3+ H Urine Glucose (UA) Negative Urine Ketones Negative Urine Blood Negative Urine Nitrite Negative Urine Bilirubin Negative Urine Urobilinogen Negative Ur Leukocyte Esterase Negative Urine RBC 3 Urine WBC 2 Ur Epithelial Cells Rare Urine Bacteria Rare Urine Mucus Rare RPR Titer Nonreactive Assessment: 03/13/17 09:27 withdrawal sx Plan: cont detox, fluids
[2017-03-13] MEDS: amLODIPine BESYLATE 5 MG TABLET (FP) PO SCH (10:06)
[2017-03-13] MEDS: PRENATAL VITAMINS W/ FOLIC ACID TABLET (FP) PO SCH (10:06)
[2017-03-13] MEDS: NICOTINE 14 MG/24 HOURS TOPICAL PATCH TD SCH (10:07)
[2017-03-13 10:34] LABS: INR 1.53 (0.82-1.09)
[2017-03-13] MEDS: WARFARIN NA 5 MG TABLET (UD) PO SCH (17:39)
[2017-03-13] MEDS: THIAMINE HCL 100 MG TABLET (FP) PO SCH (22:02)
[2017-03-13] MEDS: chlordiazePOXIDE HCL 10 MG CAPSULE PO SCH (22:02)
[2017-03-14 06:21] VITALS: TEMP 97.3
[2017-03-14] MEDS: chlordiazePOXIDE HCL 10 MG CAPSULE PO SCH ×2 (06:40→10:50)
[2017-03-14 09:11] VITALS: BP 145/86; PULSE 62
--- NOTE | 2017-03-14 09:57 | DS ---
[facility] Detox Discharge Summary Admission Date: 03/10/17 Discharge Date: 03/14/17 - History Present History: Alcohol Dependence Additional Comments: PT COMPLETED DETOX. NAD. ALERT O X 3. PT. PT REPORTS HE GETS MEDICAL CARE AT [facility] AND HIS PHARMACY IS [facility] IN [place]. REPORTS HE DOES NOT NEED ANY RX FOR WARFARIN AND DOES NOT TAKE BP MEDS AND DOESN'T NEED RX AT THIS TIME BECAUSE HE HAS HIS MED AT THE PHARMACY. Pertinent Past History: HX BLOOD CLOT IN VEIN - Physical Exam Results Vital Signs: Vital Signs Temperature 97.3 F L 03/14/17 06:20 Pulse Rate 62 03/14/17 09:11 Respiratory Rate 18 03/14/17 09:11 Blood Pressure 145/86 03/14/17 09:11 O2 Sat by Pulse Oximetry (%) Pertinent Admission Physical Exam Findings: WITHDRAWAL SX Laboratory Last Values WBC 5.0 K/mm3 (4.0-10.0) 03/11/17 07:50 RBC 3.87 M/mm3 (4.00-5.60) L 03/11/17 07:50 Hgb 12.3 GM/dL (11.7-16.9) D 03/11/17 07:50 Hct 38.0 % (35.4-49) 03/11/17 07:50 MCV 98.3 fl (80-96) H 03/11/17 07:50 MCH 31.9 pg (25.7-33.7) 03/11/17 07:50 MCHC 32.5 g/dl (32.0-35.9) 03/11/17 07:50 RDW 18.0 % (11.9-15.9) H 03/11/17 07:50 Plt Count 214 K/MM3 (134-434) D 03/11/17 07:50 MPV 7.7 fl (7.5-11.1) 03/11/17 07:50 INR 1.53 (0.82-1.09) H D 03/13/17 07:00 Sodium 141 mmol/L (136-145) 03/11/17 07:50 Potassium 3.5 mmol/L (3.5-5.1) 03/11/17 07:50 Chloride 103 mmol/L (98-107) 03/11/17 07:50 Carbon Dioxide 27 mmol/L (21-32) 03/11/17 07:50 Anion Gap 11 (8-16) 03/11/17 07:50 BUN 14 mg/dL (7-18) 03/11/17 07:50 Creatinine 1.3 mg/dL (0.7-1.3) 03/11/17 07:50 Creat Clearance w eGFR 58.20 (>60) 03/11/17 07:50 Random Glucose 100 mg/dL (74-106) D 03/11/17 07:50 Calcium 8.7 mg/dL (8.5-10.1) 03/11/17 07:50 Total Bilirubin 0.8 mg/dL (0.2-1.0) 03/11/17 07:50 AST 35 U/L (15-37) 03/11/17 07:50 ALT 30 U/L (12-78) 03/11/17 07:50 Alkaline Phosphatase 97 U/L (45-117) D 03/11/17 07:50 Total Protein 7.3 g/dl (6.4-8.2) 03/11/17 07:50 Albumin 3.4 g/dl (3.4-5.0) 03/11/17 07:50 Urine Color Yellow 03/11/17 22:00 Urine Appearance Clear 03/11/17 22:00 Urine pH 6.0 (5.0-8.0) 03/11/17 22:00 Ur Specific [place] >= 1.030 (1.005-1.025) H 03/11/17 22:00 Urine Protein 3+ (NEGATIVE) H 03/11/17 22:00 Urine Glucose (UA) Negative (NEGATIVE) 03/11/17 22:00 Urine Ketones Negative (NEGATIVE) 03/11/17 22:00 Urine Blood Negative (NEGATIVE) 03/11/17 22:00 Urine Nitrite Negative (NEGATIVE) 03/11/17 22:00 Urine Bilirubin Negative (NEGATIVE) 03/11/17 22:00 Urine Urobilinogen Negative mg/dL (0.2-1.0) 03/11/17 22:00 Ur Leukocyte Esterase Negative (NEGATIVE) 03/11/17 22:00 Urine RBC 3 /hpf (0-3) 03/11/17 22:00 Urine WBC 2 /hpf (3-5) 03/11/17 22:00 Ur Epithelial Cells Rare /hpf (FEW) 03/11/17 22:00 Urine Bacteria Rare /hpf (NONE SEEN) 03/11/17 22:00 Urine Mucus Rare 03/11/17 22:00 RPR Titer Nonreactive (NONREACTIVE) 03/11/17 07:50 - Treatment Hospital Course: Detox Protocol Followed, Detoxed Safely, Responded well, Discharged Condition Good, Rehab Referral Accepted Patient has Accepted a Rehab Referral to: [facility] - Medication Discharge Medications: Ambulatory Orders Amlodipine Besylate [Norvasc -] 5 mg PO DAILY #30 tablet 03/14/17 Warfarin Sodium [Coumadin] 10 mg PO DAILY #30 tab 03/14/17 - Diagnosis (1) Alcohol dependence with uncomplicated withdrawal Status: Acute (2) Blood clot in vein Status: Inactive (3) PVD (peripheral vascular disease) Status: Chronic - AMA Did Patient Leave Against Medical Advice: No
[2017-03-14] MEDS: PRENATAL VITAMINS W/ FOLIC ACID TABLET (FP) PO SCH (10:08)
[2017-03-14] MEDS: amLODIPine BESYLATE 5 MG TABLET (FP) PO SCH (10:08)
[2017-03-14] MEDS: NICOTINE 14 MG/24 HOURS TOPICAL PATCH TD SCH (10:08)
== END 2017-03-14 13:08 | disposition other institution (70) | DRG 775 ==
LOC: YASAS 14:12 → Y3N 18:45
PROVIDERS: ADMIT Internal Medicine Addiction Medicine; ATTEND Internal Medicine Addiction Medicine
PROC: HZ2ZZZZ Detoxification Services for Substance Abuse Treatment (ICD-10-PCS; principal; 2017-03-10)
DX: F10.230 Alcohol dependence with withdrawal, uncomplicated (principal); F17.210 Nicotine dependence, cigarettes, uncomplicated; F34.1 Dysthymic disorder; I73.9 Peripheral vascular disease, unspecified; L97.921 Non-pressure chronic ulcer of unspecified part of left lower leg limited to breakdown of skin; Z79.01 Long term (current) use of anticoagulants; I83.019 Varicose veins of right lower extremity with ulcer of unspecified site; I83.029 Varicose veins of left lower extremity with ulcer of unspecified site; R00.0 Tachycardia, unspecified; Z91.018 Allergy to other foods
CPT/HCPCS: 36415; 80053; 81003; 81015; 85027; 85610; 86593; 93005; 93010

== ENCOUNTER 2017-03-14 13:54 | Inpatient (IN) | payer OTHER ==
[2017-03-14] MEDS ORDERED: MAG HYDROX/AL HYDROX/SIMETH 30 ML UNIT-DOSE CUP PO PRN (14:36)
[2017-03-14] MEDS ORDERED: hydrOXYzine PAMOATE 50 MG CAPSULE (FP) PO PRN (14:36)
[2017-03-14] MEDS ORDERED: MENTHOL/PHENOL 1 EACH UD MM PRN (14:36)
[2017-03-14] MEDS ORDERED: MAGNESIUM CITRATE 300 ML BOTTLE PO PRN (14:36)
[2017-03-14] MEDS ORDERED: LOPERAMIDE HCL 2 MG CAPSULE PO PRN (14:36)
[2017-03-14] MEDS ORDERED: diphenhydrAMINE HCL 50 MG CAPSULE PO PRN (14:36)
[2017-03-14] MEDS ORDERED: guaiFENesin/D-METHORPHAN HB 10 ML UNIT-DOSE CUPS PO PRN (14:36)
[2017-03-14] MEDS ORDERED: MAGNESIUM HYDROX 2400MG/30ML ORAL SUSPENSION 30 ML CUP PO PRN (14:36)
[2017-03-14] MEDS ORDERED: P-EPHED 60MG/TRIPROLIDI 2.5MG TABLET PO PRN (14:36)
[2017-03-14] MEDS ORDERED: ACETAMINOPHEN 325 MG TABLET (FP) PO PRN (14:36)
--- NOTE | 2017-03-14 14:45 | HP ---
Psychiatrist Admission - Data Date of interview: 03/14/17 Admission source: 3N Identifying data: This is the third [facility] admission for this 51 years old single Black male, unemployed on SSI, homeless Medical History: Significant for ulcer right leg due to vascular disease and treatment for Gonorrhea at age 18. Smokes 10 cigarettes daily Psychiatric History: Reports that his first psychiatric treatment was 2-3 years ago when he was admitted to [facility] for depression and suicidal ideations. Told video game script writer that he was not suicidal but told them that he was so he could get admitted. Claims he stayed there for 3 weeks and treated with medication. Reports that last October, while on a medical unit at [place] for his leg, He was seen by the psychiatrist because he reported feeling depressed. He was prescribed Celexa 20mg and Risperdal 2 mg. Told video game script writer that he does not really have mental issues but reported symptoms for secondary gains. Physical/Sexual Abuse/Trauma History: Denies history of emotional, physical or sexual abuse as well as DV relationship Additional Comment: Reports history of 2 previous arrests including one felony conviction. No parole/probation currently Vital Signs: Vital Signs - 24 hr 03/14/17 14:06 Temperature 98.2 F Pulse Rate 77 Respiratory 18 Rate Blood Pressure 144/86 Allergies/Adverse Reactions: Allergies Allergy/AdvReac Type Severity Reaction Status Date / Time maitake mushroom Allergy Mild Nausea Verified 03/14/17 14:05 strawberry [[place]] Allergy Mild Rash Verified 03/14/17 14:05 mushrooms Allergy Mild Rash Uncoded 03/14/17 14:05 Date of last physical exam: 03/10/17 Concur with the findings of this exam: Yes - Substance Abuse/Tx History Hx Alcohol Use: Yes Substance Use Type: Alcohol (Started drinking alcohol at age 18, consumes 2 pints of liquor & a 6pk of beer daily. Lasr=t drink on 03/10/17) Hx Substance Use Treatment: Yes (4 previous inpt detox & 2 inpt rehab @ [facility]) - Admission Criteria Previous failed treatment: Yes Poor recovery environment: Yes Comorbidities: Yes Lacks judgement: Yes Mental Status Exam - Mental Status Exam Alert and Oriented to: Time, Place, Person Cognitive Function: Fair Patient Appearance: Well Groomed Mood: Hopeful, Euthymic Patient Behavior: Cooperative Speech Pattern: Clear Voice Loudness: Normal Thought Process: Intact, Goal Oriented Hallucinations: Denies Suicidal Ideation: Denies Homicidal Ideation: Denies Insight/Judgement: Fair Sleep: Well Appetite: Good Muscle strength/Tone: Normal Gait/Station: Normal Psychiatric Findings - Problem List ([place] 1, 2,3) (1) Alcohol dependence Current Visit: No Status: Acute (2) Nicotine dependence Current Visit: Yes Status: Acute (3) Substance induced mood disorder Current Visit: Yes Status: Acute (4) PVD (peripheral vascular disease) Current Visit: No Status: Chronic (5) Stasis leg ulcer Current Visit: No Status: Chronic Qualifiers: Laterality: bilateral Qualified Code(s): I83.019 - Varicose veins of right lower extremity with ulcer of unspecified site - Initial Treatment Plan Initial Treatment Plan: Monitor progress
[2017-03-14 15:00] VITALS: BMI 34.8
--- NOTE | 2017-03-14 16:28 | HP ---
[facility] Rehab Assess/Revision - Admission History Admitted to Rehab from: [facility] Date of Admission to Rehab: 03/14/17 - Vital signs Vital Signs: Vital Signs Period Temp Pulse Resp BP Sys/Irvin Pulse Ox Last 24 Hr 98.2 F 77 18 144/86 - Findings Detox History & Physical reviewed: Yes Concur with findings: Yes Comments/Additional Findings: transferred from detox to rehab admission as per protocol
[2017-03-14] MEDS: WARFARIN NA 5 MG TABLET (UD) PO SCH (17:01)
[2017-03-14] MEDS: THIAMINE HCL 100 MG TABLET (FP) PO SCH (21:57)
[2017-03-14] MEDS: POTASSIUM CHLORIDE ORAL LIQUID 20 MEQ/15 ML PO SCH (21:58)
[2017-03-15 09:46] LABS: INR 2.11 (0.82-1.09); PROTHROMBIN TIME (PATIENT) 23.6 SEC (9.98-11.88)
[2017-03-15] MEDS: amLODIPine BESYLATE 5 MG TABLET (FP) PO SCH (09:52)
[2017-03-15] MEDS: PRENATAL VITAMINS W/ FOLIC ACID TABLET (FP) PO SCH (09:52)
[2017-03-15] MEDS: BACITRACIN 0.9 GM PACKET TP SCH (09:53)
[2017-03-15] MEDS: POTASSIUM CHLORIDE ORAL LIQUID 20 MEQ/15 ML PO SCH ×2 (09:53→21:16)
[2017-03-15] MEDS: NICOTINE 14 MG/24 HOURS TOPICAL PATCH TD SCH (09:55)
[2017-03-15 09:56] LABS: ANION GAP 9 (8-16); CALCIUM 8.8 mg/dL (8.5-10.1); CO2 27 mmol/L (21-32); CREATININE 1.1 mg/dL (0.7-1.3); GLUCOSE,RANDOM 90 mg/dL (74-106)
[2017-03-15] MEDS ORDERED: WARFARIN NA 10 MG TABLET (FP) PO SCH ×2 (10:00)
[2017-03-15] MEDS: NICOTINE POLACRILEX 2 MG GUM BUC PRN (10:45)
[2017-03-15] MEDS: WARFARIN NA 5 MG TABLET (UD) PO SCH (17:03)
[2017-03-15] MEDS: THIAMINE HCL 100 MG TABLET (FP) PO SCH (21:16)
[2017-03-16] MEDS: PRENATAL VITAMINS W/ FOLIC ACID TABLET (FP) PO SCH (10:09)
[2017-03-16] MEDS: POTASSIUM CHLORIDE ORAL LIQUID 20 MEQ/15 ML PO SCH ×2 (10:09→22:09)
[2017-03-16] MEDS: amLODIPine BESYLATE 5 MG TABLET (FP) PO SCH (10:09)
[2017-03-16] MEDS: BACITRACIN 0.9 GM PACKET TP SCH (10:09)
[2017-03-16] MEDS: NICOTINE 14 MG/24 HOURS TOPICAL PATCH TD SCH (10:11)
[2017-03-16] MEDS: NICOTINE POLACRILEX 2 MG GUM BUC PRN (12:28)
[2017-03-16] MEDS: WARFARIN NA 5 MG TABLET (UD) PO SCH (17:40)
[2017-03-16] MEDS: THIAMINE HCL 100 MG TABLET (FP) PO SCH (22:09)
[2017-03-17] MEDS: PRENATAL VITAMINS W/ FOLIC ACID TABLET (FP) PO SCH (10:00)
[2017-03-17] MEDS: POTASSIUM CHLORIDE ORAL LIQUID 20 MEQ/15 ML PO SCH ×2 (10:00→21:13)
[2017-03-17] MEDS: BACITRACIN 0.9 GM PACKET TP SCH (10:01)
[2017-03-17] MEDS: NICOTINE POLACRILEX 2 MG GUM BUC PRN (10:01)
[2017-03-17] MEDS: NICOTINE 14 MG/24 HOURS TOPICAL PATCH TD SCH (10:01)
[2017-03-17] MEDS: amLODIPine BESYLATE 5 MG TABLET (FP) PO SCH (10:01)
[2017-03-17] MEDS ORDERED: AMMONIUM LACTATE 12% LOTION 225 GM BOTTLE TP PRN (13:04)
[2017-03-17] MEDS ORDERED: PT OWN MED DRAWER 7, Y5N ONE ×2 (16:55→17:39)
[2017-03-17] MEDS: WARFARIN NA 5 MG TABLET (UD) PO SCH (17:39)
[2017-03-17] MEDS: THIAMINE HCL 100 MG TABLET (FP) PO SCH (21:12)
[2017-03-18] MEDS: PRENATAL VITAMINS W/ FOLIC ACID TABLET (FP) PO SCH (10:00)
[2017-03-18] MEDS: BACITRACIN 0.9 GM PACKET TP SCH (10:00)
[2017-03-18] MEDS: amLODIPine BESYLATE 5 MG TABLET (FP) PO SCH (10:00)
[2017-03-18] MEDS: NICOTINE 14 MG/24 HOURS TOPICAL PATCH TD SCH (10:01)
[2017-03-18] MEDS: POTASSIUM CHLORIDE ORAL LIQUID 20 MEQ/15 ML PO SCH ×2 (10:01→21:34)
[2017-03-18] MEDS: WARFARIN NA 5 MG TABLET (UD) PO SCH (17:03)
[2017-03-18] MEDS: THIAMINE HCL 100 MG TABLET (FP) PO SCH (21:35)
[2017-03-19] MEDS: amLODIPine BESYLATE 5 MG TABLET (FP) PO SCH (10:02)
[2017-03-19] MEDS: PRENATAL VITAMINS W/ FOLIC ACID TABLET (FP) PO SCH (10:02)
[2017-03-19] MEDS: BACITRACIN 0.9 GM PACKET TP SCH (10:02)
[2017-03-19] MEDS: POTASSIUM CHLORIDE ORAL LIQUID 20 MEQ/15 ML PO SCH ×2 (10:02→21:19)
[2017-03-19] MEDS: NICOTINE 14 MG/24 HOURS TOPICAL PATCH TD SCH (10:03)
[2017-03-19] MEDS: NICOTINE POLACRILEX 2 MG GUM BUC PRN (10:04)
[2017-03-19] MEDS: WARFARIN NA 5 MG TABLET (UD) PO SCH (18:30)
[2017-03-19] MEDS: THIAMINE HCL 100 MG TABLET (FP) PO SCH (21:18)
[2017-03-20 09:57] LABS: INR 3.34 (0.82-1.09); PROTHROMBIN TIME (PATIENT) 37.7 SEC (9.98-11.88)
[2017-03-20] MEDS: PRENATAL VITAMINS W/ FOLIC ACID TABLET (FP) PO SCH (10:02)
[2017-03-20] MEDS: amLODIPine BESYLATE 5 MG TABLET (FP) PO SCH (10:02)
[2017-03-20] MEDS: BACITRACIN 0.9 GM PACKET TP SCH (10:03)
[2017-03-20] MEDS: NICOTINE POLACRILEX 2 MG GUM BUC PRN (10:03)
[2017-03-20] MEDS: POTASSIUM CHLORIDE ORAL LIQUID 20 MEQ/15 ML PO SCH ×2 (10:03→21:08)
[2017-03-20] MEDS: NICOTINE 14 MG/24 HOURS TOPICAL PATCH TD SCH (10:03)
[2017-03-20 17:13] LABS: URINE APPEARANCE CLEAR; URINE BILIRUBIN NEGATIVE (NEGATIVE); URINE BLOOD NEGATIVE (NEGATIVE); URINE COLOR YELLOW; URINE GLUCOSE (UA) NEGATIVE (NEGATIVE); URINE KETONE NEGATIVE (NEGATIVE); URINE LEUK ESTERASE NEGATIVE (NEGATIVE); URINE NITRITE NEGATIVE (NEGATIVE); URINE UROBILINOGEN NEGATIVE mg/dL (0.2-1.0)
[2017-03-20 17:15] LABS: URINE PROTEIN 2+ (NEGATIVE)
[2017-03-20 17:17] LABS: URINE RBC 1 /hpf (0-3); URINE WBC <1 /hpf (3-5)
[2017-03-20] MEDS ORDERED: WARFARIN NA 5 MG TABLET (UD) PO SCH (18:00)
[2017-03-20] MEDS: THIAMINE HCL 100 MG TABLET (FP) PO SCH (21:08)
[2017-03-21] MEDS: BACITRACIN 0.9 GM PACKET TP SCH (09:15)
[2017-03-21] MEDS: PRENATAL VITAMINS W/ FOLIC ACID TABLET (FP) PO SCH (09:15)
[2017-03-21] MEDS: POTASSIUM CHLORIDE ORAL LIQUID 20 MEQ/15 ML PO SCH (09:15)
[2017-03-21] MEDS: NICOTINE 14 MG/24 HOURS TOPICAL PATCH TD SCH (09:15)
[2017-03-21] MEDS: amLODIPine BESYLATE 5 MG TABLET (FP) PO SCH (09:15)
[2017-03-21 14:18] LABS: INR 3.95 (0.82-1.09); PROTHROMBIN TIME (PATIENT) 44.7 SEC (9.98-11.88)
[2017-03-21] MEDS ORDERED: WARFARIN NA 7.5 MG TABLET (FP) PO SCH (18:00)
[2017-03-21] MEDS: THIAMINE HCL 100 MG TABLET (FP) PO SCH (21:44)
[2017-03-22] MEDS: NICOTINE 14 MG/24 HOURS TOPICAL PATCH TD SCH (09:57)
[2017-03-22] MEDS: PRENATAL VITAMINS W/ FOLIC ACID TABLET (FP) PO SCH (09:57)
[2017-03-22] MEDS: BACITRACIN 0.9 GM PACKET TP SCH (09:57)
[2017-03-22] MEDS: amLODIPine BESYLATE 5 MG TABLET (FP) PO SCH (09:57)
[2017-03-22 10:13] LABS: INR 3.56 (0.82-1.09); PROTHROMBIN TIME (PATIENT) 40.2 SEC (9.98-11.88)
[2017-03-22] MEDS: WARFARIN NA 5 MG TABLET (UD) PO SCH (17:02)
[2017-03-22] MEDS: THIAMINE HCL 100 MG TABLET (FP) PO SCH (21:27)
[2017-03-23] MEDS: PRENATAL VITAMINS W/ FOLIC ACID TABLET (FP) PO SCH (10:01)
[2017-03-23] MEDS: NICOTINE POLACRILEX 2 MG GUM BUC PRN (10:02)
[2017-03-23] MEDS: NICOTINE 14 MG/24 HOURS TOPICAL PATCH TD SCH (10:02)
[2017-03-23] MEDS: BACITRACIN 0.9 GM PACKET TP SCH (10:02)
[2017-03-23] MEDS: amLODIPine BESYLATE 5 MG TABLET (FP) PO SCH (10:02)
[2017-03-23 10:33] LABS: INR 2.93 (0.82-1.09); PROTHROMBIN TIME (PATIENT) 32.9 SEC (9.98-11.88)
[2017-03-23] MEDS: WARFARIN NA 5 MG TABLET (UD) PO SCH (17:03)
[2017-03-23] MEDS: THIAMINE HCL 100 MG TABLET (FP) PO SCH (21:13)
[2017-03-24] MEDS: PRENATAL VITAMINS W/ FOLIC ACID TABLET (FP) PO SCH (09:55)
[2017-03-24] MEDS: amLODIPine BESYLATE 5 MG TABLET (FP) PO SCH (09:55)
[2017-03-24] MEDS: BACITRACIN 0.9 GM PACKET TP SCH (09:55)
[2017-03-24] MEDS: NICOTINE 14 MG/24 HOURS TOPICAL PATCH TD SCH (09:55)
[2017-03-24] MEDS: NICOTINE POLACRILEX 2 MG GUM BUC PRN (09:56)
[2017-03-24] MEDS: WARFARIN NA 5 MG TABLET (UD) PO SCH (18:05)
[2017-03-24] MEDS: THIAMINE HCL 100 MG TABLET (FP) PO SCH (21:12)
[2017-03-25] MEDS: BACITRACIN 0.9 GM PACKET TP SCH (09:43)
[2017-03-25] MEDS: PRENATAL VITAMINS W/ FOLIC ACID TABLET (FP) PO SCH (09:43)
[2017-03-25] MEDS: NICOTINE 14 MG/24 HOURS TOPICAL PATCH TD SCH (09:44)
[2017-03-25] MEDS: amLODIPine BESYLATE 5 MG TABLET (FP) PO SCH (09:44)
[2017-03-25] MEDS: WARFARIN NA 5 MG TABLET (UD) PO SCH (17:15)
[2017-03-25] MEDS: THIAMINE HCL 100 MG TABLET (FP) PO SCH (21:21)
[2017-03-26] MEDS: BACITRACIN 0.9 GM PACKET TP SCH (09:51)
[2017-03-26] MEDS: PRENATAL VITAMINS W/ FOLIC ACID TABLET (FP) PO SCH (09:51)
[2017-03-26] MEDS: NICOTINE 14 MG/24 HOURS TOPICAL PATCH TD SCH (09:51)
[2017-03-26] MEDS: amLODIPine BESYLATE 5 MG TABLET (FP) PO SCH (09:51)
[2017-03-26] MEDS: NICOTINE POLACRILEX 2 MG GUM BUC PRN ×2 (09:51→22:25)
[2017-03-26] MEDS: WARFARIN NA 5 MG TABLET (UD) PO SCH (17:44)
[2017-03-26] MEDS: THIAMINE HCL 100 MG TABLET (FP) PO SCH (21:39)
[2017-03-27] MEDS: PRENATAL VITAMINS W/ FOLIC ACID TABLET (FP) PO SCH (10:00)
[2017-03-27] MEDS: BACITRACIN 0.9 GM PACKET TP SCH (10:01)
[2017-03-27] MEDS: NICOTINE 14 MG/24 HOURS TOPICAL PATCH TD SCH (10:01)
[2017-03-27] MEDS: amLODIPine BESYLATE 5 MG TABLET (FP) PO SCH (10:01)
[2017-03-27] MEDS: NICOTINE POLACRILEX 2 MG GUM BUC PRN (10:02)
[2017-03-27 10:29] LABS: INR 1.46 (0.82-1.09); PROTHROMBIN TIME (PATIENT) 16.2 SEC (9.98-11.88)
[2017-03-27] MEDS ORDERED: WARFARIN NA 7.5 MG TABLET (FP) PO SCH (18:00)
[2017-03-27] MEDS: THIAMINE HCL 100 MG TABLET (FP) PO SCH (21:41)
[2017-03-28] MEDS: BACITRACIN 0.9 GM PACKET TP SCH (09:48)
[2017-03-28] MEDS: amLODIPine BESYLATE 5 MG TABLET (FP) PO SCH (09:48)
[2017-03-28] MEDS: PRENATAL VITAMINS W/ FOLIC ACID TABLET (FP) PO SCH (09:48)
[2017-03-28] MEDS: NICOTINE 14 MG/24 HOURS TOPICAL PATCH TD SCH (09:49)
[2017-03-28] MEDS: NICOTINE POLACRILEX 2 MG GUM BUC PRN (09:50)
[2017-03-28 10:00] LABS: INR 1.4 (0.82-1.09); PROTHROMBIN TIME (PATIENT) 15.5 SEC (9.98-11.88)
[2017-03-28] MEDS: WARFARIN NA 5 MG TABLET (UD) PO SCH (17:00)
[2017-03-28] MEDS: THIAMINE HCL 100 MG TABLET (FP) PO SCH (21:06)
[2017-03-29] MEDS: NICOTINE POLACRILEX 2 MG GUM BUC PRN (10:20)
[2017-03-29] MEDS: amLODIPine BESYLATE 5 MG TABLET (FP) PO SCH (10:20)
[2017-03-29] MEDS: NICOTINE 14 MG/24 HOURS TOPICAL PATCH TD SCH (10:20)
[2017-03-29] MEDS: BACITRACIN 0.9 GM PACKET TP SCH (10:20)
[2017-03-29] MEDS: PRENATAL VITAMINS W/ FOLIC ACID TABLET (FP) PO SCH (10:20)
[2017-03-29 14:04] LABS: INR 1.5 (0.82-1.09); PROTHROMBIN TIME (PATIENT) 16.6 SEC (9.98-11.88)
[2017-03-29] MEDS: WARFARIN NA 5 MG TABLET (UD) PO SCH (17:04)
[2017-03-29] MEDS: THIAMINE HCL 100 MG TABLET (FP) PO SCH (21:07)
[2017-03-30] MEDS: PRENATAL VITAMINS W/ FOLIC ACID TABLET (FP) PO SCH (09:47)
[2017-03-30] MEDS: BACITRACIN 0.9 GM PACKET TP SCH (09:47)
[2017-03-30] MEDS: NICOTINE 14 MG/24 HOURS TOPICAL PATCH TD SCH (09:47)
[2017-03-30] MEDS: amLODIPine BESYLATE 5 MG TABLET (FP) PO SCH (09:47)
[2017-03-30] MEDS: NICOTINE POLACRILEX 2 MG GUM BUC PRN (09:48)
[2017-03-30] MEDS: WARFARIN NA 5 MG TABLET (UD) PO SCH (18:21)
[2017-03-30] MEDS: THIAMINE HCL 100 MG TABLET (FP) PO SCH (21:27)
[2017-03-31] MEDS: amLODIPine BESYLATE 5 MG TABLET (FP) PO SCH (09:47)
[2017-03-31] MEDS: BACITRACIN 0.9 GM PACKET TP SCH (09:47)
[2017-03-31] MEDS: PRENATAL VITAMINS W/ FOLIC ACID TABLET (FP) PO SCH (09:47)
[2017-03-31] MEDS: NICOTINE 14 MG/24 HOURS TOPICAL PATCH TD SCH (09:48)
[2017-03-31] MEDS: WARFARIN NA 5 MG TABLET (UD) PO SCH (18:50)
[2017-03-31] MEDS: THIAMINE HCL 100 MG TABLET (FP) PO SCH (21:38)
[2017-04-01] MEDS: amLODIPine BESYLATE 5 MG TABLET (FP) PO SCH (09:49)
[2017-04-01] MEDS: PRENATAL VITAMINS W/ FOLIC ACID TABLET (FP) PO SCH (09:49)
[2017-04-01] MEDS: BACITRACIN 0.9 GM PACKET TP SCH (09:49)
[2017-04-01] MEDS: NICOTINE 14 MG/24 HOURS TOPICAL PATCH TD SCH (09:50)
[2017-04-01] MEDS: WARFARIN NA 5 MG TABLET (UD) PO SCH (16:59)
[2017-04-01] MEDS: THIAMINE HCL 100 MG TABLET (FP) PO SCH (21:57)
[2017-04-02] MEDS: PRENATAL VITAMINS W/ FOLIC ACID TABLET (FP) PO SCH (09:54)
[2017-04-02] MEDS: amLODIPine BESYLATE 5 MG TABLET (FP) PO SCH (09:54)
[2017-04-02] MEDS: BACITRACIN 0.9 GM PACKET TP SCH (09:54)
[2017-04-02] MEDS: NICOTINE 14 MG/24 HOURS TOPICAL PATCH TD SCH (09:55)
[2017-04-02] MEDS: WARFARIN NA 5 MG TABLET (UD) PO SCH (17:03)
[2017-04-02] MEDS: THIAMINE HCL 100 MG TABLET (FP) PO SCH (21:32)
[2017-04-03] MEDS: BACITRACIN 0.9 GM PACKET TP SCH (09:51)
[2017-04-03] MEDS: PRENATAL VITAMINS W/ FOLIC ACID TABLET (FP) PO SCH (09:51)
[2017-04-03] MEDS: amLODIPine BESYLATE 5 MG TABLET (FP) PO SCH (09:51)
[2017-04-03] MEDS: NICOTINE POLACRILEX 2 MG GUM BUC PRN (09:52)
[2017-04-03] MEDS: NICOTINE 14 MG/24 HOURS TOPICAL PATCH TD SCH (09:52)
[2017-04-03] MEDS: WARFARIN NA 5 MG TABLET (UD) PO SCH (17:02)
[2017-04-03] MEDS: THIAMINE HCL 100 MG TABLET (FP) PO SCH (21:07)
[2017-04-04] MEDS: BACITRACIN 0.9 GM PACKET TP SCH (09:07)
[2017-04-04] MEDS: PRENATAL VITAMINS W/ FOLIC ACID TABLET (FP) PO SCH (09:10)
[2017-04-04] MEDS: NICOTINE 14 MG/24 HOURS TOPICAL PATCH TD SCH (09:11)
[2017-04-04] MEDS: amLODIPine BESYLATE 5 MG TABLET (FP) PO SCH (09:13)
[2017-04-04] MEDS: WARFARIN NA 5 MG TABLET (UD) PO SCH (17:42)
[2017-04-04] MEDS: THIAMINE HCL 100 MG TABLET (FP) PO SCH (21:42)
[2017-04-05 10:12] LABS: INR 2.81 (0.82-1.09); PROTHROMBIN TIME (PATIENT) 31.6 SEC (9.98-11.88)
[2017-04-05] MEDS: amLODIPine BESYLATE 5 MG TABLET (FP) PO SCH (10:17)
[2017-04-05] MEDS: PRENATAL VITAMINS W/ FOLIC ACID TABLET (FP) PO SCH (10:17)
[2017-04-05] MEDS: BACITRACIN 0.9 GM PACKET TP SCH (10:17)
[2017-04-05] MEDS: NICOTINE POLACRILEX 2 MG GUM BUC PRN (10:18)
[2017-04-05] MEDS: NICOTINE 14 MG/24 HOURS TOPICAL PATCH TD SCH (10:18)
--- NOTE | 2017-04-05 16:05 | PN ---
[facility] Progress Note Note: INR within therapeutic range will leave on current dose of warfaring.
[2017-04-05] MEDS: WARFARIN NA 5 MG TABLET (UD) PO SCH (17:28)
[2017-04-05] MEDS: THIAMINE HCL 100 MG TABLET (FP) PO SCH (21:41)
[2017-04-06] MEDS: PRENATAL VITAMINS W/ FOLIC ACID TABLET (FP) PO SCH (09:59)
[2017-04-06] MEDS: amLODIPine BESYLATE 5 MG TABLET (FP) PO SCH (09:59)
[2017-04-06] MEDS: BACITRACIN 0.9 GM PACKET TP SCH (09:59)
[2017-04-06] MEDS: NICOTINE 14 MG/24 HOURS TOPICAL PATCH TD SCH (09:59)
[2017-04-06] MEDS: WARFARIN NA 5 MG TABLET (UD) PO SCH (17:18)
[2017-04-06] MEDS: THIAMINE HCL 100 MG TABLET (FP) PO SCH (22:16)
[2017-04-07] MEDS: amLODIPine BESYLATE 5 MG TABLET (FP) PO SCH (10:12)
[2017-04-07] MEDS: PRENATAL VITAMINS W/ FOLIC ACID TABLET (FP) PO SCH (10:12)
[2017-04-07] MEDS: NICOTINE 14 MG/24 HOURS TOPICAL PATCH TD SCH (10:13)
[2017-04-07] MEDS: BACITRACIN 0.9 GM PACKET TP SCH (10:13)
[2017-04-07] MEDS: NICOTINE POLACRILEX 2 MG GUM BUC PRN (10:14)
[2017-04-07] MEDS: WARFARIN NA 5 MG TABLET (UD) PO SCH (17:01)
[2017-04-07] MEDS: THIAMINE HCL 100 MG TABLET (FP) PO SCH (21:23)
[2017-04-08] MEDS: BACITRACIN 0.9 GM PACKET TP SCH (10:08)
[2017-04-08] MEDS: amLODIPine BESYLATE 5 MG TABLET (FP) PO SCH (10:09)
[2017-04-08] MEDS: PRENATAL VITAMINS W/ FOLIC ACID TABLET (FP) PO SCH (10:09)
[2017-04-08] MEDS: NICOTINE 14 MG/24 HOURS TOPICAL PATCH TD SCH (10:09)
[2017-04-08] MEDS ORDERED: WARFARIN NA 5 MG TABLET (UD) PO ONE (18:33)
[2017-04-08] MEDS: THIAMINE HCL 100 MG TABLET (FP) PO SCH (22:10)
[2017-04-09] MEDS: NICOTINE POLACRILEX 2 MG GUM BUC PRN ×2 (05:52→10:13)
[2017-04-09] MEDS: amLODIPine BESYLATE 5 MG TABLET (FP) PO SCH (10:12)
[2017-04-09] MEDS: BACITRACIN 0.9 GM PACKET TP SCH (10:12)
[2017-04-09] MEDS: NICOTINE 14 MG/24 HOURS TOPICAL PATCH TD SCH (10:12)
[2017-04-09] MEDS: PRENATAL VITAMINS W/ FOLIC ACID TABLET (FP) PO SCH (10:12)
[2017-04-09] MEDS: WARFARIN NA 5 MG TABLET (UD) PO SCH (17:39)
[2017-04-09] MEDS ORDERED: WARFARIN NA 10 MG TABLET (FP) PO SCH (18:00)
[2017-04-09] MEDS: THIAMINE HCL 100 MG TABLET (FP) PO SCH (21:58)
[2017-04-10] MEDS: NICOTINE 14 MG/24 HOURS TOPICAL PATCH TD SCH (10:25)
[2017-04-10] MEDS: BACITRACIN 0.9 GM PACKET TP SCH (10:25)
[2017-04-10] MEDS: PRENATAL VITAMINS W/ FOLIC ACID TABLET (FP) PO SCH (10:25)
[2017-04-10] MEDS: amLODIPine BESYLATE 5 MG TABLET (FP) PO SCH (10:25)
[2017-04-10] MEDS: NICOTINE POLACRILEX 2 MG GUM BUC PRN (10:26)
[2017-04-10 11:41] LABS: MCH 30.4 pg (25.7-33.7); MCHC 31.8 g/dl (32.0-35.9); MEAN CELL VOLUME 95.4 fl (80-96); MEAN PLT VOLUME 8.2 fl (7.5-11.1); PLATELET COUNT 221 K/MM3 (134-434); RDW 17.3 % (11.9-15.9); WHITE BLOOD COUNT 4.6 K/mm3 (4.0-10.0)
[2017-04-10 12:18] LABS: INR 2.76 (0.82-1.09)
[2017-04-10] MEDS: WARFARIN NA 5 MG TABLET (UD) PO SCH (17:05)
[2017-04-10] MEDS: THIAMINE HCL 100 MG TABLET (FP) PO SCH (22:13)
[2017-04-11 07:28] VITALS: TEMP 98.7
[2017-04-11] MEDS: amLODIPine BESYLATE 5 MG TABLET (FP) PO SCH (09:41)
[2017-04-11] MEDS: BACITRACIN 0.9 GM PACKET TP SCH (09:42)
[2017-04-11] MEDS: PRENATAL VITAMINS W/ FOLIC ACID TABLET (FP) PO SCH (09:42)
[2017-04-11] MEDS: NICOTINE 14 MG/24 HOURS TOPICAL PATCH TD SCH (09:42)
--- NOTE | 2017-04-11 10:05 | PN ---
Psychiatric Progress Note Vital Signs: Vital Signs Period Temp Pulse Resp BP Sys/Irvin Pulse Ox Last 24 Hr 98.7 F 76 18-18 130/78 Date of Session: 04/11/17 Chief Complaint:: Discharge Note HPI: Patient addressing Alcohol Dependence comorbid with Nicotine Dependence and Substance-Induced Mood Disorder ROS: PVD, stasis leg ulcer Current Medications: Active Medications Generic Name Dose Route Start Last Admin Trade Name Freq PRN Reason Stop Dose Admin Acetaminophen 650 mg 03/14/17 14:36 03/20/17 11:46 Tylenol - PO 650 mg Q4H PRN Administration FEVER OR PAIN Al Hydroxide/Mg Hydroxide 30 ml 03/14/17 14:36 Mylanta Oral Suspension - PO Q6H PRN DYSPEPSIA Amlodipine Besylate 5 mg 03/15/17 10:00 04/11/17 09:41 Norvasc - PO 5 mg DAILY NED Administration Bacitracin 0.9 gm 03/15/17 10:00 04/11/17 09:42 Bacitracin - TP 0.9 gm DAILY NED Administration Diphenhydramine HCl 50 mg 03/14/17 14:36 Benadryl - PO HSMR1 PRN FOR ITCHING Eucalyptus/Menthol/Phenol/Sorbitol 1 each 03/14/17 14:36 Cepastat Lozenge - MM Q4H PRN SORE THROAT Guaifenesin 10 ml 03/14/17 14:36 Robitussin Dm - PO Q6H PRN COUGH Hydroxyzine Pamoate 50 mg 03/14/17 14:36 Vistaril - PO Q4H PRN AGITATION Lactic Acid 1 applic 03/17/17 13:04 Lac-Hydrin 12 TP BID PRN DRY SKIN Loperamide HCl 4 mg 03/14/17 14:36 Imodium - PO Q6H PRN DIARRHEA Magnesium Hydroxide 30 ml 03/14/17 14:36 Milk Of Magnesia - PO DAILY PRN CONSTIPATION Nicotine 14 mg 03/15/17 10:00 04/11/17 09:42 Nicoderm Patch - TD Not Given DAILY NED Nicotine Polacrilex 2 mg 03/14/17 14:36 04/10/17 10:26 Nicorette Gum - BUC 2 mg Q2H PRN Administration NICOTINE REPLACEMENT RX Multivit/Folic Acid/Iron 1 tab 03/15/17 10:00 04/11/17 09:42 Vitamins (Sjr) - PO Not Given DAILY NED Pseudoephedrine/Triprolidine 1 combo 03/14/17 14:36 Actifed - PO TID PRN NASAL CONGESTION Thiamine HCl 100 mg 03/14/17 22:00 04/10/17 22:13 Vitamin B1 - PO 100 mg HS NED Administration Warfarin Sodium 10 mg 04/09/17 18:00 04/10/17 17:05 Coumadin - PO 10 mg DAILY@1800 NED Administration Current Side Effect: No Lab tests ordered: Yes Lab tests reviewed: Yes Provider note:: Patient has completed this program today. He has met his treatment goals and will continue to address his issues in intermediate accountant treament at [facility]. Told consumer loan underwriter that from his participation in this program, he has learned to keep the focus on himself and make meeting. He is stable for discharge today Total face to face time:: 35 Mental Status Exam - Mental Status Exam Alert and Oriented to: Time, Place, Person Cognitive Function: Fair Patient Appearance: Well Groomed Mood: Hopeful, Euthymic Affect: Appropriate Patient Behavior: Cooperative Speech Pattern: Clear Voice Loudness: Normal Thought Process: Intact, Goal Oriented Hallucinations: Denies Suicidal Ideation: Denies Homicidal Ideation: Denies Insight/Judgement: Fair Sleep: Well Appetite: Good Muscle strength/Tone: Normal Gait/Station: Normal Psychiatric Treatment Plan - Problem List (1) Alcohol dependence Current Visit: No (2) Nicotine dependence Current Visit: Yes (3) Substance induced mood disorder Current Visit: Yes (4) PVD (peripheral vascular disease) Current Visit: No (5) Stasis leg ulcer Current Visit: No Qualifiers: Laterality: bilateral Qualified Code(s): I83.019 - Varicose veins of right lower extremity with ulcer of unspecified site; I83.019 - Varicose veins of right lower extremity with ulcer of unspecified site; I83.019 - Varicose veins of right lower extremity with ulcer of unspecified site Initial treatment plan: Patient is discharged today and referred to [facility] for intermediate accountant treatment
--- NOTE | 2017-04-11 10:14 | PN ---
[facility] Progress Note Note: ADDENDUM Laboratory Last Values WBC 4.6 K/mm3 (4.0-10.0) 04/10/17 09:45 RBC 4.52 M/mm3 (4.00-5.60) 04/10/17 09:45 Hgb 13.7 GM/dL (11.7-16.9) D 04/10/17 09:45 Hct 43.1 % (35.4-49) 04/10/17 09:45 MCV 95.4 fl (80-96) 04/10/17 09:45 MCH 30.4 pg (25.7-33.7) 04/10/17 09:45 MCHC 31.8 g/dl (32.0-35.9) L 04/10/17 09:45 RDW 17.3 % (11.9-15.9) H 04/10/17 09:45 Plt Count 221 K/MM3 (134-434) 04/10/17 09:45 MPV 8.2 fl (7.5-11.1) 04/10/17 09:45 PT with INR 31.00 SEC (9.98-11.88) H 04/10/17 09:45 INR 2.76 (0.82-1.09) H 04/10/17 09:45 Sodium 140 mmol/L (136-145) 03/15/17 07:00 Potassium 4.2 mmol/L (3.5-5.1) 03/20/17 07:00 Chloride 104 mmol/L (98-107) 03/15/17 07:00 Carbon Dioxide 27 mmol/L (21-32) 03/15/17 07:00 Anion Gap 9 (8-16) 03/15/17 07:00 BUN 12 mg/dL (7-18) 03/15/17 07:00 Creatinine 1.1 mg/dL (0.7-1.3) 03/15/17 07:00 Random Glucose 90 mg/dL (74-106) 03/15/17 07:00 Calcium 8.8 mg/dL (8.5-10.1) 03/15/17 07:00 Urine Color Yellow 03/20/17 17:05 Urine Appearance Clear 03/20/17 17:05 Urine pH 5.0 (5.0-8.0) 03/20/17 17:05 Ur Specific [place] 1.025 (1.005-1.025) 03/20/17 17:05 Urine Protein 2+ (NEGATIVE) H 03/20/17 17:05 Urine Glucose (UA) Negative (NEGATIVE) 03/20/17 17:05 Urine Ketones Negative (NEGATIVE) 03/20/17 17:05 Urine Blood Negative (NEGATIVE) 03/20/17 17:05 Urine Nitrite Negative (NEGATIVE) 03/20/17 17:05 Urine Bilirubin Negative (NEGATIVE) 03/20/17 17:05 Urine Urobilinogen Negative mg/dL (0.2-1.0) 03/20/17 17:05 Urine RBC 1 /hpf (0-3) 03/20/17 17:05 Urine WBC <1 /hpf (3-5) 03/20/17 17:05 INR 2.76 ON COUMADIN 10 MGS PO DAILY FOR DVT COUMADIN E PRESCRIPTION 10 MGS PO DAILY FOR 7 DAYS ADVISE PATIENT TO SEE HIS PMD FOR REGULATION OF COUMADIN DOSE SOON POSIBLE
[2017-04-11 11:22] VITALS: BP 142/76; PULSE 86
== END 2017-04-11 10:22 | disposition home or self-care (01) | DRG 772 ==
LOC: YASAS 13:54 → Y3W 13:55
PROVIDERS: ADMIT Psychiatry & Neurology Psychiatry; ATTEND Psychiatry & Neurology Psychiatry
PROC: HZ42ZZZ Group Counseling for Substance Abuse Treatment, Cognitive-Behavioral (ICD-10-PCS; principal; 2017-03-14)
DX: F10.20 Alcohol dependence, uncomplicated (principal); F17.210 Nicotine dependence, cigarettes, uncomplicated; F19.24 Other psychoactive substance dependence with psychoactive substance-induced mood disorder; I73.9 Peripheral vascular disease, unspecified; I82.409 Acute embolism and thrombosis of unspecified deep veins of unspecified lower extremity; I83.019 Varicose veins of right lower extremity with ulcer of unspecified site; Z79.01 Long term (current) use of anticoagulants
CPT/HCPCS: 36415; 80048; 81003; 81015; 84132; 85027; 85610

== ENCOUNTER 2017-11-25 09:42 | Inpatient (IN) | payer OTHER ==
[2017-11-25 10:48] VITALS: BMI 35.6
--- NOTE | 2017-11-25 12:17 | HP ---
CIWA Score - CIWA Score Nausea/Vomitin-Mild Nausea/No Vomiting Muscle Tremors: 3 Anxiety: 4-Mod. Anxious/Guarded Agitation: 1-Slight > Activity Paroxysmal Sweats: No Perspiration Orientation: 0-Oriented Tacttile Disturbances: 1-Very Mild Itch/Numbness Auditory Disturbances: 1-Very Mild Visual Disturbances: 1-Very Mild Sensitivity Headache: 2-Mild CIWA-Ar Total Score: 14 Admission ROS [facility] - HPI Chief Complaint: I want to stop drinking, I'm tired, I can't stop, it's crazy, I want to put it to a halt. Allergies/Adverse Reactions: Allergies Allergy/AdvReac Type Severity Reaction Status Date / Time maitake mushroom Allergy Mild Nausea Verified 11/25/17 11:47 strawberry [[place]] Allergy Mild Rash Verified 11/25/17 11:47 No Known Drug Allergies Allergy Verified 11/25/17 11:48 mushrooms Allergy Mild Rash Uncoded 11/25/17 11:47 History of Present Illness: 52 yo gentleman here for detox from alcohol. This is one of several admissions for detox - last here March 2017 - no other detox. Was in [place] last night for detox but they had no beds so was sent here. No seizures but does have black outs. History of RLE leg ulcer - hospitalized in August for treatment of the ulcer at [facility] - was evaluated for this at [facility] ED yesterday and told no need for antibiotics at this time. States he has been to wound care clinic in past, history of unna boot which he did not like - has had ulcer for almost two years. Although elevated BP, states he is not treated for it as only high when detoxing. BGM = 146 - he had just eaten sandwich /juice. States no longer on coumadin - history of DVT. Exam Limitations: Clinical Condition - Ebola screening Have you traveled outside of the country in the last 21 days: No Have you had contact with anyone from an Ebola affected area: No Have you been sick,other than usual withdrawal symptoms: No - Review of Systems Constitutional: Night Sweats, Changes in sleep, Weakness EENT: reports: Blurred Vision Respiratory: reports: No Symptoms reported Cardiac: reports: No Symptoms Reported GI: reports: Poor Appetite, Indigestion : reports: Frequency Musculoskeletal: reports: Back Pain Integumentary: reports: Dryness, Other (RLE ulcer) Neuro: reports: Headache Endocrine: reports: No Symptoms Reported Hematology: reports: No Symptoms Reported Psychiatric: reports: Judgement Intact, Mood/Affect Appropiate, Anxious Other Systems: Reviewed and Negative Patient History - Patient Medical History Hx Anemia: No Hx Asthma: No Hx Chronic Obstructive Pulmonary Disease (COPD): No Hx Cancer: No Hx Cardiac Disorders: No Hx Congestive Heart Failure: No Hx Hypertension: Yes Hx Hypercholesterolemia: No Hx Pacemaker: No HX Cerebrovascular Accident: No Hx Seizures: No Hx Dementia: No Hx Diabetes: No Hx Gastrointestinal Disorders: No Hx Liver Disease: No Hx Genitourinary Disorders: No Hx Sexually Transmitted Disorders: No Hx Renal Disease (ESRD): No Hx Thyroid Disease: No Hx Human Immunodeficiency Virus (HIV): No Hx Hepatitis C: No Hx Depression: Yes (hospitalized [facility] for depression) Hx Suicide Attempt: No (denies) Hx Bipolar Disorder: No Hx Schizophrenia: No - Patient Surgical History Past Surgical History: No Hx Neurologic Surgery: No Hx Cataract Extraction: No Hx Cardiac Surgery: No Hx Lung Surgery: No Hx Breast Surgery: No Hx Breast Biopsy: No Hx Abdominal Surgery: No Hx Appendectomy: No Hx Cholecystectomy: No Hx Genitourinary Surgery: No Hx Section: No Hx Orthopedic Surgery: No Anesthesia Reaction: No - PPD History Previous Implant?: Yes Documented Results: Negative w/proof Date: 09/27/16 Results: NEGATIVE PPD to be Administered?: Yes - Reproductive History Patient is a Female of Child Bearing Age (11 -55 yrs old): No (male) - Smoking Cessation Smoking history: Current every day smoker Have you smoked in the past 12 months: Yes Aproximately how many cigarettes per day: 10 Hx Chewing Tobacco Use: No Initiated information on smoking cessation: Yes 'Breaking Loose' booklet given: 11/25/17 (give on floor) - Substance & Tx. History Hx Alcohol Use: Yes Hx Substance Use: No Substance Use Type: Alcohol Hx Substance Use Treatment: Yes (detox, rehab) - Substances Abused Alcohol Route: Oral Frequency: Daily Amount used: 2 pints of vodka, 2-3 20 ounces of beer Age of first use: 18 Date of Last Use: 11/24/17 Family Disease History - Family Disease History Family Disease History: Diabetes: Mother (), Heart Disease: Father ( ), Sister (one - living - HTN), Other: Brother (two - little contact), Sister Admission Physical Exam [facility] - Vital Signs Vital Signs: Vital Signs - 24 hr 11/25/17 10:46 Temperature 98.7 F Pulse Rate 81 Respiratory 21 Rate Blood Pressure 167/96 - Physical General Appearance: Yes: Nourished, Appropriately Dressed, Moderate Distress, Obese, Anxious HEENTM: Yes: Hearing grossly Normal, Normal ENT Inspection, Normocephalic, Normal Voice Respiratory: Yes: No Respiratory Distress, Wheezing Neck: Yes: No masses,lesions,Nodules, Supple Breast: Yes: Breast Exam Deferred Cardiology: Yes: Regular Rhythm, Regular Rate Abdominal: Yes: Non Tender, Flat, Soft Genitourinary: Yes: Frequency Back: Yes: Normal Inspection Musculoskeletal: Yes: full range of Motion, Gait Steady Extremities: Yes: Pedal Edema, Other (both legs with 1-2+ edema; RLE with 4 inch long by 3 inch wide ulcer with serosanguinous drainage - no redness, states chronic and longstanding) Neurological: Yes: Fully Oriented, Alert, Normal Mood/Affect, Normal Response Integumentary: Yes: Normal Color, Dry, Warm Lymphatic: Yes: Within Normal Limits - Diagnostic (1) Alcohol dependence with uncomplicated withdrawal Current Visit: Yes Status: Acute (2) Nicotine dependence Current Visit: Yes Status: Acute Qualifiers: Nicotine product type: cigarettes Substance use status: uncomplicated Qualified Code(s): F17.210 - Nicotine dependence, cigarettes, uncomplicated (3) PVD (peripheral vascular disease) Current Visit: Yes Status: Chronic (4) Stasis leg ulcer Current Visit: Yes Status: Chronic Qualifiers: Laterality: right Qualified Code(s): I83.019 - Varicose veins of right lower extremity with ulcer of unspecified site; L97.919 - Non-pressure chronic ulcer of unspecified part of right lower leg with unspecified severity (5) Edema of both legs Current Visit: Yes Status: Chronic Cleared for Admission [facility] - Detox or Rehab [facility] Level of Care: Medically Managed Detox Regimen/Protocol: Librium [facility] Breath Alcohol Content Breath Alcohol Content: 0 Urine Drug Screen - Results Drug Screen Negative: No Urine Drug Screen Results: BZO-Benzodiazepines
[2017-11-25] MEDS ORDERED: LOPERAMIDE HCL 2 MG CAPSULE PO PRN (12:28)
[2017-11-25] MEDS ORDERED: guaiFENesin/D-METHORPHAN HB 10 ML UNIT-DOSE CUPS PO PRN (12:28)
[2017-11-25] MEDS ORDERED: chlordiazePOXIDE HCL 25 MG CAPSULE PO PRN (12:28)
[2017-11-25] MEDS ORDERED: hydrOXYzine PAMOATE 25 MG CAPSULE (FP) PO PRN (12:28)
[2017-11-25] MEDS ORDERED: P-EPHED 60MG/TRIPROLIDI 2.5MG TABLET PO PRN (12:28)
[2017-11-25] MEDS ORDERED: MENTHOL/PHENOL 1 EACH UD MM PRN (12:28)
[2017-11-25] MEDS ORDERED: NICOTINE POLACRILEX 4 MG GUM BUC PRN (12:28)
[2017-11-25] MEDS ORDERED: ACETAMINOPHEN 325 MG TABLET (FP) PO PRN (12:28)
[2017-11-25] MEDS ORDERED: MAGNESIUM HYDROX 2400MG/30ML ORAL SUSPENSION 30 ML CUP PO PRN (12:28)
[2017-11-25] MEDS ORDERED: MAGNESIUM CITRATE 300 ML BOTTLE PO PRN (12:28)
[2017-11-25] MEDS ORDERED: MAG HYDROX/AL HYDROX/SIMETH 30 ML UNIT-DOSE CUP PO PRN (12:28)
[2017-11-25] MEDS ORDERED: IBUPROFEN 400 MG TABLET (FP) PO PRN (12:28)
[2017-11-25] MEDS ORDERED: chlordiazePOXIDE HCL 25 MG CAPSULE PO ONE (14:00)
[2017-11-25] MEDS: chlordiazePOXIDE HCL 25 MG CAPSULE PO SCH ×2 (16:24→22:48)
[2017-11-25] MEDS: COLLAGENASE CLOSTRIDIUM HIST. 30 GRAMS TUBE TP SCH (16:28)
[2017-11-25] MEDS ORDERED: MELATONIN 5 MG TABLETS PO PRN (22:00)
[2017-11-25 22:40] LABS: URINE APPEARANCE CLEAR; URINE BILIRUBIN NEGATIVE (<2.0 mg/dL); URINE COLOR YELLOW; URINE GLUCOSE (UA) NEGATIVE (NEGATIVE); URINE KETONE NEGATIVE (NEGATIVE); URINE LEUK ESTERASE NEGATIVE (NEGATIVE); URINE NITRITE NEGATIVE (NEGATIVE)
[2017-11-25 22:42] LABS: URINE PROTEIN 2+ (NEGATIVE)
[2017-11-25 22:47] LABS: URINE HYALINE CAST 1 /lpf; URINE MUCUS FEW
[2017-11-25] MEDS: THIAMINE HCL 100 MG TABLET (FP) PO SCH (22:48)
[2017-11-26] MEDS: chlordiazePOXIDE HCL 25 MG CAPSULE PO SCH ×4 (05:37→22:45)
--- NOTE | 2017-11-26 07:01 | CONSULT ---
[facility] Psychiatric Consult - Data Date of interview: 11/26/17 Admission source: [facility] Identifying data: Mr Cuevas is a 52 years old single Black male, unemployed on SSI, homeless seeking detox treatment for alcohol Substance Abuse History: Reports history of alcohol use. Refer to addiction counselor's summary for further information Medical History: Significant for ulcer right leg due to vascular disease and treatment for gonorrhea at age 18. Smokes 10 cigarettes daily Psychiatric History: Patient is known to medical writer from a previous admission to this facility in March 2017. Historical data has not changed. He reports that his first psychiatric treatment was a few years ago when he was admitted to [facility] for depression and suicidal ideations. Reiterated to medical writer that he was not suicidal but told them that he was depressed due to housing and addiction issues but he was not really suicidal. He said that he told them he was so he could get admitted. Claims he stayed there for 3 weeks and treated with medication. He said that he has no recollection of name of medications. Reports that in October 2016, while on a medical unit at [place] for his leg ulcer, He was seen by the psychiatrist because he reported feeling depressed. He was prescribed Celexa 20mg and Risperdal 2 mg which he did not take for long. Told medical writer that he does not really have mental issues aside depression due to his housing and addiction issues. At present, reports feeling mildly depressed but sleeing well Physical/Sexual Abuse/Trauma History: Denies history of emotional, physical or sexual abuse as well as DV relationship Additional Comment: Reports history of 2 previous arrests including one felony conviction. No parole/probation currently Mental Status Exam - Mental Status Exam Alert and Oriented to: Time, Place, Person Cognitive Function: Fair Patient Appearance: Well Groomed Mood: Depressed (mildly) Affect: Appropriate Patient Behavior: Cooperative Speech Pattern: Clear Voice Loudness: Normal Thought Process: Intact, Goal Oriented Thought Disorder: Present Hallucinations: Denies Suicidal Ideation: Denies Homicidal Ideation: Denies Insight/Judgement: Fair Sleep: Well Appetite: Good Muscle strength/Tone: Normal Gait/Station: Normal Psychiatric Findings - Problem List ([place] 1, 2,3) (1) Substance induced mood disorder Current Visit: No Status: Acute (2) Alcohol dependence with uncomplicated withdrawal Current Visit: Yes Status: Acute (3) Nicotine dependence Current Visit: Yes Status: Chronic Qualifiers: Nicotine product type: cigarettes Substance use status: uncomplicated Qualified Code(s): F17.210 - Nicotine dependence, cigarettes, uncomplicated (4) PVD (peripheral vascular disease) Current Visit: Yes Status: Chronic (5) Stasis leg ulcer Current Visit: Yes Status: Chronic Qualifiers: Laterality: right Qualified Code(s): I83.019 - Varicose veins of right lower extremity with ulcer of unspecified site; L97.919 - Non-pressure chronic ulcer of unspecified part of right lower leg with unspecified severity - Initial Treatment Plan Initial Treatment Plan: Continue inpatient detoxification
[2017-11-26 09:27] LABS: HEMATOCRIT 33.2 % (35.4-49); HEMOGLOBIN 11.1 GM/dL (11.7-16.9); MCH 33.1 pg (25.7-33.7); MCHC 33.4 g/dl (32.0-35.9); MEAN CELL VOLUME 99.1 fl (80-96); MEAN PLT VOLUME 8.1 fl (7.5-11.1); PLATELET COUNT 154 K/MM3 (134-434); RBC 3.35 M/mm3 (4.00-5.60); RDW 16.4 % (11.9-15.9); WHITE BLOOD COUNT 4.3 K/mm3 (4.0-10.0)
[2017-11-26 09:39] LABS: CHLORIDE 107 mmol/L (98-107); POTASSIUM 3.6 mmol/L (3.5-5.1); SODIUM 140 mmol/L (136-145)
[2017-11-26 09:48] LABS: ALBUMIN 2.9 g/dl (3.4-5.0); ALK PHOS 76 U/L (45-117); ANION GAP 7 (8-16); BILIRUBIN,TOTAL 0.6 mg/dL (0.2-1.0); BLOOD UREA NITROGEN 14 mg/dL (7-18); CALCIUM 8.1 mg/dL (8.5-10.1); CO2 26 mmol/L (21-32); CREATININE 1.3 mg/dL (0.7-1.3); GLUCOSE,RANDOM 90 mg/dL (74-106); SGOT/AST 40 U/L (15-37); SGPT/ALT 24 U/L (12-78); TOT PROT 6.7 g/dl (6.4-8.2)
--- NOTE | 2017-11-26 10:06 | EKG ---
Test Reason : Blood Pressure : / mmHG Vent. Rate : 077 BPM Atrial Rate : 077 BPM P-R Int : 158 ms QRS Dur : 084 ms QT Int : 378 ms P-R-T Axes : 061 -31 014 degrees QTc Int : 427 ms NORMAL SINUS RHYTHM LEFT AXIS DEVIATION ABNORMAL ECG WHEN COMPARED WITH ECG OF 10-MAR-2017 20:54, NO SIGNIFICANT CHANGE WAS FOUND Confirmed by MARLI RATLIFF, OBEY ([id number]) on 11/26/2017 10:06:15 AM Referred By: Fabián Gustafson Confirmed By:OBEY CALLES MD
[2017-11-26] MEDS: PRENATAL VITAMINS W/ FOLIC ACID TABLET (FP) PO SCH (12:40)
[2017-11-26] MEDS: COLLAGENASE CLOSTRIDIUM HIST. 30 GRAMS TUBE TP SCH (12:42)
--- NOTE | 2017-11-26 15:48 | PN ---
[facility] CIWA - CIWA Score Nausea/Vomitin Muscle Tremors: 3 Anxiety: 3 Agitation: 3 Paroxysmal Sweats: 3 Orientation: 0-Oriented Tacttile Disturbances: 1-Very Mild Itch/Numbness Auditory Disturbances: 0-None Visual Disturbances: 0-None Headache: 1-Very Mild CIWA-Ar Total Score: 17 [facility] Progress Note (SOAP) Subjective: Sweating, headache, chills Objective: 11/26/17 15:44 Last Vital Signs Temp Pulse Resp BP Pulse Ox 97.9 F 72 20 136/93 11/26/17 10:02 11/26/17 10:02 11/26/17 10:02 11/26/17 10:02 Laboratory Tests 11/25/17 11/25/17 11/26/17 12:05 22:20 07:45 WBC 4.3 RBC 3.35 L D Hgb 11.1 L D Hct 33.2 L D MCV 99.1 H MCH 33.1 MCHC 33.4 RDW 16.4 H Plt Count 154 D MPV 8.1 Sodium Potassium Chloride Carbon Dioxide Anion Gap BUN Creatinine Creat Clearance w eGFR POC Glucometer 141 Random Glucose Calcium Total Bilirubin AST ALT Alkaline Phosphatase Total Protein Albumin Urine Color Yellow Urine Appearance Clear Urine pH 5.0 Ur Specific [place] 1.021 Urine Protein 2+ H Urine Glucose (UA) Negative Urine Ketones Negative Urine Blood 1+ H Urine Nitrite Negative Urine Bilirubin Negative Urine Urobilinogen 2.0 Ur Leukocyte Esterase Negative Urine WBC (Auto) 1 Urine RBC (Auto) 1 Hyaline Casts 1 Urine Mucus Few RPR Titer 11/26/17 11/26/17 07:45 07:45 WBC RBC Hgb Hct MCV MCH MCHC RDW Plt Count MPV Sodium 140 Potassium 3.6 Chloride 107 Carbon Dioxide 26 Anion Gap 7 L BUN 14 Creatinine 1.3 Creat Clearance w eGFR 57.97 POC Glucometer Random Glucose 90 Calcium 8.1 L Total Bilirubin 0.6 D AST 40 H ALT 24 Alkaline Phosphatase 76 D Total Protein 6.7 Albumin 2.9 L Urine Color Urine Appearance Urine pH Ur Specific [place] Urine Protein Urine Glucose (UA) Urine Ketones Urine Blood Urine Nitrite Urine Bilirubin Urine Urobilinogen Ur Leukocyte Esterase Urine WBC (Auto) Urine RBC (Auto) Hyaline Casts Urine Mucus RPR Titer Nonreactive Labs reviewed: MICK, abnormal UA Assessment: 11/26/17 15:46 Withdrawal symptoms Noted with MICK and abnormal UA Plan: Continue detox MICK: encouraged PO water hydration, repeat BMP on 11/28 Abnormal UA: repeat UA
[2017-11-26] MEDS: THIAMINE HCL 100 MG TABLET (FP) PO SCH (22:45)
[2017-11-27] MEDS: chlordiazePOXIDE HCL 25 MG CAPSULE PO SCH ×2 (06:15→10:51)
[2017-11-27 10:35] LABS: URINE APPEARANCE CLEAR; URINE BILIRUBIN NEGATIVE (<2.0 mg/dL); URINE COLOR STRAW; URINE GLUCOSE (UA) NEGATIVE (NEGATIVE); URINE KETONE NEGATIVE (NEGATIVE); URINE LEUK ESTERASE NEGATIVE (NEGATIVE); URINE NITRITE NEGATIVE (NEGATIVE); URINE UROBILINOGEN NEGATIVE mg/dL (0.2-1.0)
[2017-11-27] MEDS: PRENATAL VITAMINS W/ FOLIC ACID TABLET (FP) PO SCH (10:51)
[2017-11-27] MEDS: COLLAGENASE CLOSTRIDIUM HIST. 30 GRAMS TUBE TP SCH (10:51)
[2017-11-27 11:09] LABS: URINE PROTEIN 1+ (NEGATIVE)
[2017-11-27 11:16] LABS: EPI CELLS RARE /HPF (FEW)
--- NOTE | 2017-11-27 16:59 | PN ---
[facility] CIWA - CIWA Score Nausea/Vomitin Muscle Tremors: 3 Anxiety: 3 Agitation: 3 Paroxysmal Sweats: 3 Orientation: 0-Oriented Tacttile Disturbances: 0-None Auditory Disturbances: 0-None Visual Disturbances: 0-None Headache: 0-None Present CIWA-Ar Total Score: 14 [facility] Progress Note (SOAP) Subjective: Sleep disturbance Sweats Shakes Objective: 11/27/17 16:58 Sleeping in bed Arousable to verbal stimuli, A & O x 3 Vital Signs Temperature 98.2 F 11/27/17 13:12 Pulse Rate 61 11/27/17 13:12 Respiratory Rate 18 11/27/17 13:12 Blood Pressure 160/95 11/27/17 13:12 O2 Sat by Pulse Oximetry (%) Elevtaed Bp; denies headache or neuro sx Assessment: 11/27/17 16:57 withdrawal sx Plan: continue detox Continue increased water hydration
[2017-11-27] MEDS: chlordiazePOXIDE 5 MG CAPSULE PO SCH ×2 (18:04→22:38)
[2017-11-27] MEDS: THIAMINE HCL 100 MG TABLET (FP) PO SCH (22:38)
[2017-11-28] MEDS: chlordiazePOXIDE 5 MG CAPSULE PO SCH ×2 (06:09→10:43)
[2017-11-28 10:05] LABS: CHLORIDE 107 mmol/L (98-107); POTASSIUM 3.8 mmol/L (3.5-5.1); SODIUM 140 mmol/L (136-145)
[2017-11-28 10:23] LABS: ANION GAP 7 (8-16); BLOOD UREA NITROGEN 14 mg/dL (7-18); CALCIUM 8.4 mg/dL (8.5-10.1); CO2 26 mmol/L (21-32); CREATININE 1.2 mg/dL (0.7-1.3); GLUCOSE,RANDOM 92 mg/dL (74-106)
[2017-11-28] MEDS: COLLAGENASE CLOSTRIDIUM HIST. 30 GRAMS TUBE TP SCH (10:43)
[2017-11-28] MEDS: PRENATAL VITAMINS W/ FOLIC ACID TABLET (FP) PO SCH (10:43)
--- NOTE | 2017-11-28 16:34 | PN ---
[facility] Progress Note (SOAP) Subjective: Interrupted Sleep, Sweating. Objective: PATIENT A & O X 3, OBSERVED AMBULATING ON UNIT. NO ACUTE DISTRESS. PATIENT DENIES CHEST PAIN. 11/28/17 16:32 Vital Signs Temperature 98.2 F 11/28/17 13:39 Pulse Rate 67 11/28/17 13:39 Respiratory Rate 18 11/28/17 13:39 Blood Pressure 166/86 11/28/17 13:39 O2 Sat by Pulse Oximetry (%) Laboratory Tests 11/25/17 11/25/17 11/26/17 12:05 22:20 07:45 WBC 4.3 RBC 3.35 L D Hgb 11.1 L D Hct 33.2 L D MCV 99.1 H MCH 33.1 MCHC 33.4 RDW 16.4 H Plt Count 154 D MPV 8.1 Sodium Potassium Chloride Carbon Dioxide Anion Gap BUN Creatinine Creat Clearance w eGFR POC Glucometer 141 Random Glucose Calcium Total Bilirubin AST ALT Alkaline Phosphatase Total Protein Albumin Urine Color Yellow Urine Appearance Clear Urine pH 5.0 Ur Specific [place] 1.021 Urine Protein 2+ H Urine Glucose (UA) Negative Urine Ketones Negative Urine Blood 1+ H Urine Nitrite Negative Urine Bilirubin Negative Urine Urobilinogen 2.0 Ur Leukocyte Esterase Negative Urine WBC (Auto) 1 Urine RBC (Auto) 1 Ur Epithelial Cells Hyaline Casts 1 Urine Mucus Few RPR Titer 11/26/17 11/26/17 11/27/17 07:45 07:45 08:20 WBC RBC Hgb Hct MCV MCH MCHC RDW Plt Count MPV Sodium 140 Potassium 3.6 Chloride 107 Carbon Dioxide 26 Anion Gap 7 L BUN 14 Creatinine 1.3 Creat Clearance w eGFR 57.97 POC Glucometer Random Glucose 90 Calcium 8.1 L Total Bilirubin 0.6 D AST 40 H ALT 24 Alkaline Phosphatase 76 D Total Protein 6.7 Albumin 2.9 L Urine Color Straw Urine Appearance Clear Urine pH 7.0 D Ur Specific [place] 1.010 Urine Protein 1+ H Urine Glucose (UA) Negative Urine Ketones Negative Urine Blood Negative Urine Nitrite Negative Urine Bilirubin Negative Urine Urobilinogen Negative Ur Leukocyte Esterase Negative Urine WBC (Auto) <1 Urine RBC (Auto) None Ur Epithelial Cells Rare Hyaline Casts Urine Mucus RPR Titer Nonreactive 11/28/17 07:45 WBC RBC Hgb Hct MCV MCH MCHC RDW Plt Count MPV Sodium 140 Potassium 3.8 Chloride 107 Carbon Dioxide 26 Anion Gap 7 L BUN 14 Creatinine 1.2 Creat Clearance w eGFR POC Glucometer Random Glucose 92 Calcium 8.4 L Total Bilirubin AST ALT Alkaline Phosphatase Total Protein Albumin Urine Color Urine Appearance Urine pH Ur Specific [place] Urine Protein Urine Glucose (UA) Urine Ketones Urine Blood Urine Nitrite Urine Bilirubin Urine Urobilinogen Ur Leukocyte Esterase Urine WBC (Auto) Urine RBC (Auto) Ur Epithelial Cells Hyaline Casts Urine Mucus RPR Titer LABS NOTED. Assessment: 11/28/17 16:33 WITHDRAWAL SYMPTOMS. Plan: CONTINUE DETOX. CLONIDINE, 0.1 MG PO X 1 FOR ELEVATED BP. PATIENT SCHEDULED FOR D/C TOMORROW.
[2017-11-28] MEDS ORDERED: cloNIDine HCL 0.1 MG TABLET PO ONE (16:45)
[2017-11-28] MEDS: chlordiazePOXIDE HCL 10 MG CAPSULE PO SCH ×2 (17:03→22:18)
[2017-11-28] MEDS: THIAMINE HCL 100 MG TABLET (FP) PO SCH (22:18)
[2017-11-29] MEDS: chlordiazePOXIDE HCL 10 MG CAPSULE PO SCH ×2 (05:43→10:26)
[2017-11-29 09:12] VITALS: BP 162/91; PULSE 69; TEMP 99.6
[2017-11-29] MEDS: COLLAGENASE CLOSTRIDIUM HIST. 30 GRAMS TUBE TP SCH (10:26)
[2017-11-29] MEDS: PRENATAL VITAMINS W/ FOLIC ACID TABLET (FP) PO SCH (10:26)
--- NOTE | 2017-11-29 16:13 | PN ---
S Progress Note (SOAP) Subjective: Patient denies current Detox symptoms and reports that he feels well overall. Objective: PATIENT A & O X 3, OBSERVED AMBULATING ON UNIT. NO ACUTE DISTRESS. 11/29/17 16:12 Vital Signs Temperature 99.6 F 11/29/17 09:11 Pulse Rate 69 11/29/17 09:11 Respiratory Rate 18 11/29/17 09:11 Blood Pressure 162/91 11/29/17 09:11 O2 Sat by Pulse Oximetry (%) Laboratory Tests 11/25/17 11/25/17 11/26/17 12:05 22:20 07:45 WBC 4.3 RBC 3.35 L D Hgb 11.1 L D Hct 33.2 L D MCV 99.1 H MCH 33.1 MCHC 33.4 RDW 16.4 H Plt Count 154 D MPV 8.1 Sodium Potassium Chloride Carbon Dioxide Anion Gap BUN Creatinine Creat Clearance w eGFR POC Glucometer 141 Random Glucose Calcium Total Bilirubin AST ALT Alkaline Phosphatase Total Protein Albumin Urine Color Yellow Urine Appearance Clear Urine pH 5.0 Ur Specific [place] 1.021 Urine Protein 2+ H Urine Glucose (UA) Negative Urine Ketones Negative Urine Blood 1+ H Urine Nitrite Negative Urine Bilirubin Negative Urine Urobilinogen 2.0 Ur Leukocyte Esterase Negative Urine WBC (Auto) 1 Urine RBC (Auto) 1 Ur Epithelial Cells Hyaline Casts 1 Urine Mucus Few RPR Titer 11/26/17 11/26/17 11/27/17 07:45 07:45 08:20 WBC RBC Hgb Hct MCV MCH MCHC RDW Plt Count MPV Sodium 140 Potassium 3.6 Chloride 107 Carbon Dioxide 26 Anion Gap 7 L BUN 14 Creatinine 1.3 Creat Clearance w eGFR 57.97 POC Glucometer Random Glucose 90 Calcium 8.1 L Total Bilirubin 0.6 D AST 40 H ALT 24 Alkaline Phosphatase 76 D Total Protein 6.7 Albumin 2.9 L Urine Color Straw Urine Appearance Clear Urine pH 7.0 D Ur Specific [place] 1.010 Urine Protein 1+ H Urine Glucose (UA) Negative Urine Ketones Negative Urine Blood Negative Urine Nitrite Negative Urine Bilirubin Negative Urine Urobilinogen Negative Ur Leukocyte Esterase Negative Urine WBC (Auto) <1 Urine RBC (Auto) None Ur Epithelial Cells Rare Hyaline Casts Urine Mucus RPR Titer Nonreactive 11/28/17 07:45 WBC RBC Hgb Hct MCV MCH MCHC RDW Plt Count MPV Sodium 140 Potassium 3.8 Chloride 107 Carbon Dioxide 26 Anion Gap 7 L BUN 14 Creatinine 1.2 Creat Clearance w eGFR POC Glucometer Random Glucose 92 Calcium 8.4 L Total Bilirubin AST ALT Alkaline Phosphatase Total Protein Albumin Urine Color Urine Appearance Urine pH Ur Specific [place] Urine Protein Urine Glucose (UA) Urine Ketones Urine Blood Urine Nitrite Urine Bilirubin Urine Urobilinogen Ur Leukocyte Esterase Urine WBC (Auto) Urine RBC (Auto) Ur Epithelial Cells Hyaline Casts Urine Mucus RPR Titer LABS NOTED. Assessment: 11/29/17 16:12 COMPLETION OF DETOX REGIMEN. Plan: PATIENT SCHEDULED FOR DISCHARGE FROM DETOX UNIT TODAY.
--- NOTE | 2017-11-29 16:16 | DS ---
[facility] Detox Discharge Summary Admission Date: 11/25/17 Discharge Date: 11/29/17 - History Present History: Alcohol Dependence Additional Comments: PATIENT ADVISED TO CONSIDER LOCAL 12-STEP / AA OUTPATIENT SUPPORT GROUPS FOR AFTERCARE. PATIENT WAS DISCHARGED FROM DETOX UNIT IN STABLE MEDICAL CONDITION. Pertinent Past History: Stasis Ulcer of Leg, PVD, Depression, Edema of Bilateral Legs. - Physical Exam Results Vital Signs: Vital Signs Temperature 99.6 F 11/29/17 09:11 Pulse Rate 69 11/29/17 09:11 Respiratory Rate 18 11/29/17 09:11 Blood Pressure 162/91 11/29/17 09:11 O2 Sat by Pulse Oximetry (%) Pertinent Admission Physical Exam Findings: WITHDRAWAL SYMPTOMS. Laboratory Tests 11/25/17 11/25/17 11/26/17 12:05 22:20 07:45 WBC 4.3 RBC 3.35 L D Hgb 11.1 L D Hct 33.2 L D MCV 99.1 H MCH 33.1 MCHC 33.4 RDW 16.4 H Plt Count 154 D MPV 8.1 Sodium Potassium Chloride Carbon Dioxide Anion Gap BUN Creatinine Creat Clearance w eGFR POC Glucometer 141 Random Glucose Calcium Total Bilirubin AST ALT Alkaline Phosphatase Total Protein Albumin Urine Color Yellow Urine Appearance Clear Urine pH 5.0 Ur Specific [place] 1.021 Urine Protein 2+ H Urine Glucose (UA) Negative Urine Ketones Negative Urine Blood 1+ H Urine Nitrite Negative Urine Bilirubin Negative Urine Urobilinogen 2.0 Ur Leukocyte Esterase Negative Urine WBC (Auto) 1 Urine RBC (Auto) 1 Ur Epithelial Cells Hyaline Casts 1 Urine Mucus Few RPR Titer 11/26/17 11/26/17 11/27/17 07:45 07:45 08:20 WBC RBC Hgb Hct MCV MCH MCHC RDW Plt Count MPV Sodium 140 Potassium 3.6 Chloride 107 Carbon Dioxide 26 Anion Gap 7 L BUN 14 Creatinine 1.3 Creat Clearance w eGFR 57.97 POC Glucometer Random Glucose 90 Calcium 8.1 L Total Bilirubin 0.6 D AST 40 H ALT 24 Alkaline Phosphatase 76 D Total Protein 6.7 Albumin 2.9 L Urine Color Straw Urine Appearance Clear Urine pH 7.0 D Ur Specific [place] 1.010 Urine Protein 1+ H Urine Glucose (UA) Negative Urine Ketones Negative Urine Blood Negative Urine Nitrite Negative Urine Bilirubin Negative Urine Urobilinogen Negative Ur Leukocyte Esterase Negative Urine WBC (Auto) <1 Urine RBC (Auto) None Ur Epithelial Cells Rare Hyaline Casts Urine Mucus RPR Titer Nonreactive 11/28/17 07:45 WBC RBC Hgb Hct MCV MCH MCHC RDW Plt Count MPV Sodium 140 Potassium 3.8 Chloride 107 Carbon Dioxide 26 Anion Gap 7 L BUN 14 Creatinine 1.2 Creat Clearance w eGFR POC Glucometer Random Glucose 92 Calcium 8.4 L Total Bilirubin AST ALT Alkaline Phosphatase Total Protein Albumin Urine Color Urine Appearance Urine pH Ur Specific [place] Urine Protein Urine Glucose (UA) Urine Ketones Urine Blood Urine Nitrite Urine Bilirubin Urine Urobilinogen Ur Leukocyte Esterase Urine WBC (Auto) Urine RBC (Auto) Ur Epithelial Cells Hyaline Casts Urine Mucus RPR Titer LABS NOTED. - Treatment Hospital Course: Detox Protocol Followed, Detoxed Safely, Responded well, Discharged Condition Good Patient has Accepted a Rehab Referral to: PATIENT ADVISED TO CONSDIDER LOCAL 12- STEP/AA OUTPAITENT SUPPORT GROUPS. - Medication Discharge Medications: Ambulatory Orders Collagenase Clostridium Hist. [Santyl] 1 applic TP DAILY 11/25/17 - Diagnosis (1) Alcohol dependence with uncomplicated withdrawal Status: Acute (2) Edema of both legs Status: Chronic (3) Nicotine dependence Status: Chronic Qualifiers: Nicotine product type: cigarettes Substance use status: uncomplicated Qualified Code(s): F17.210 - Nicotine dependence, cigarettes, uncomplicated (4) PVD (peripheral vascular disease) Status: Chronic (5) Stasis leg ulcer Status: Chronic Qualifiers: Laterality: right Qualified Code(s): I83.019 - Varicose veins of right lower extremity with ulcer of unspecified site; L97.919 - Non-pressure chronic ulcer of unspecified part of right lower leg with unspecified severity (6) Substance induced mood disorder Status: Acute - AMA Did Patient Leave Against Medical Advice: No
== END 2017-11-29 10:18 | disposition home or self-care (01) | DRG 775 ==
LOC: YASAS 09:42 → Y3N 14:04
PROVIDERS: ADMIT Internal Medicine; ATTEND Internal Medicine
PROC: HZ2ZZZZ Detoxification Services for Substance Abuse Treatment (ICD-10-PCS; principal; 2017-11-25)
DX: F10.230 Alcohol dependence with withdrawal, uncomplicated (principal); F17.210 Nicotine dependence, cigarettes, uncomplicated; F19.24 Other psychoactive substance dependence with psychoactive substance-induced mood disorder; F34.1 Dysthymic disorder; R60.0 Localized edema; I83.019 Varicose veins of right lower extremity with ulcer of unspecified site; L97.919 Non-pressure chronic ulcer of unspecified part of right lower leg with unspecified severity; I73.9 Peripheral vascular disease, unspecified; N17.9 Acute kidney failure, unspecified; R82.90 Unspecified abnormal findings in urine
CPT/HCPCS: 36415; 80048; 80053; 81003; 81015; 82962; 85027; 86593; 93005; 93010; J0735

== ENCOUNTER 2018-05-23 09:48 | Inpatient (IN) | payer OTHER ==
[2018-05-23 10:07] VITALS: BMI 34.8
--- NOTE | 2018-05-23 12:25 | HP ---
CIWA Score Nausea/Vomitin Muscle Tremors: 2 Anxiety: 2 Agitation: 2 Paroxysmal Sweats: 1-Minimal Palms Moist Orientation: 0-Oriented Tacttile Disturbances: 1-Very Mild Itch/Numbness Auditory Disturbances: 1-Very Mild Visual Disturbances: 0-None Headache: 2-Mild CIWA-Ar Total Score: 13 - Admission Criteria [facility]ASAS Guidelines: Admission for Medically Managed Detox: Requires at least one of the followin. CIWA greater than 12 2. Seizures within the past 24 hours 3. Delirium tremens within the past 24 hours 4. Hallucinations within the past 24 hours 5. Acute intervention needed for co occurring medical disorder 6. Acute intervention needed for co occurring psychiatric disorder 7. Severe withdrawal that cannot be handled at a lower level of care (continued vomiting, continued diarrhea, abnormal vital signs) requiring intravenous medication and/or fluids 8. Patient presents the following: CIWA greater than 12 Admission Criteria Met: Admission criteria met Admission ROS S - [facility] Chief Complaint: i need help to stop drinking alcohol Allergies/Adverse Reactions: Allergies Allergy/AdvReac Type Severity Reaction Status Date / Time maitake mushroom Allergy Mild Nausea Verified 05/23/18 10:56 strawberry [[place]] Allergy Mild Rash Verified 05/23/18 10:56 No Known Drug Allergies Allergy Verified 05/23/18 10:56 mushrooms Allergy Mild Rash Uncoded 05/23/18 10:56 History of Present Illness: this 52 years old mlae with alcohol dependence,seeking detox,withdrwal symptom, seen [place] 05/22/18 receinvg medication and refer for detox,last detox 11/25/17 to 11/29/17 nicotine dependence depression,no medication longest sobriety 2 years edema both legs dvt right leg chronic ulcer of right leg - Ebola screening Have you traveled outside of the country in the last 21 days: No Have you had contact with anyone from an Ebola affected area: No Have you been sick,other than usual withdrawal symptoms: No Do you have a fever: No - Review of Systems Constitutional: Loss of Appetite, Malaise, Night Sweats, Changes in sleep, Weakness, Unintentional Wgt. Loss EENT: reports: Tearing, Nose Congestion Respiratory: reports: No Symptoms reported Cardiac: reports: No Symptoms Reported GI: reports: Nausea, Poor Appetite, Vomiting, Abdominal cramping : reports: No Symptoms Reported Musculoskeletal: reports: Back Pain, Muscle Pain Integumentary: reports: Dryness Neuro: reports: Headache, Tremors Endocrine: reports: No Symptoms Reported Hematology: reports: No Symptoms Reported Psychiatric: reports: No Sypmtoms Reported, Judgement Intact, Mood/Affect Appropiate, Orientated x3 (history of depression) Patient History - Patient Medical History Hx Anemia: No Hx Asthma: No Hx Chronic Obstructive Pulmonary Disease (COPD): No Hx Cancer: No Hx Cardiac Disorders: No Hx Congestive Heart Failure: No Hx Hypertension: No Hx Hypercholesterolemia: No Hx Pacemaker: No HX Cerebrovascular Accident: No Hx Seizures: No Hx Dementia: No Hx Diabetes: No Hx Gastrointestinal Disorders: No Hx Liver Disease: No Hx Genitourinary Disorders: No Hx Sexually Transmitted Disorders: No Hx Renal Disease (ESRD): No Hx Thyroid Disease: No Hx Human Immunodeficiency Virus (HIV): No (last 2017 negative) Hx Hepatitis C: No Hx Depression: Yes (hospitalized 2015 [facility] for depression) Hx Suicide Attempt: No (denies) Hx Bipolar Disorder: No Hx Schizophrenia: No Other Medical History: no suicidal,no homicidal,do not want to see psychiatrist - Patient Surgical History Past Surgical History: No Hx Neurologic Surgery: No Hx Cataract Extraction: No Hx Cardiac Surgery: No Hx Lung Surgery: No Hx Breast Surgery: No Hx Breast Biopsy: No Hx Abdominal Surgery: No Hx Appendectomy: No Hx Cholecystectomy: No Hx Genitourinary Surgery: No Hx Section: No Hx Orthopedic Surgery: No Anesthesia Reaction: No - PPD History Previous Implant?: Yes Documented Results: Negative w/proof Date: 11/27/17 Results: 0 mm PPD to be Administered?: No - Smoking Cessation Smoking history: Current every day smoker Have you smoked in the past 12 months: Yes Aproximately how many cigarettes per day: 10 Cigars Per Day: 0 Hx Chewing Tobacco Use: No Initiated information on smoking cessation: Yes 'Breaking Loose' booklet given: 05/23/18 - Substance & Tx. History Hx Alcohol Use: Yes Hx Substance Use: No Substance Use Type: Alcohol Hx Substance Use Treatment: Yes ([facility] 11/25/17 to 11/29/17) - Substances Abused Alcohol Route: Oral Frequency: Daily Amount used: 2 PINTS OF VODKA Age of first use: 18 Date of Last Use: 05/23/18 Family Disease History - Family Disease History Family Disease History: Diabetes: Mother (), Heart Disease: Father ( ), Sister (one - living - HTN), Other: Brother (two - little contact), Sister Admission Physical Exam [facility] - Vital Signs Vital Signs: Vital Signs - 24 hr 05/23/18 10:05 Temperature 96.9 F L Pulse Rate 89 Respiratory 18 Rate Blood Pressure 146/85 - Physical General Appearance: Yes: Moderate Distress, Alcohol on Breath, Sweating, Anxious HEENTM: Yes: Normal ENT Inspection, MARCO A, Pharynx Normal Respiratory: Yes: Lungs Clear, Normal Breath Sounds, No Respiratory Distress Neck: Yes: Within Normal Limits, Supple, Trachea in good position Breast: Yes: Within Normal Limits Cardiology: Yes: Within Normal Limits, Regular Rhythm, Regular Rate, S1, S2 Abdominal: Yes: Within Normal Limits, Non Tender, Soft Genitourinary: Yes: Within Normal Limits Back: Yes: Muscle Spasm Musculoskeletal: Yes: full range of Motion, Back pain, Muscle Pain Extremities: Yes: Within Normal Limits, Normal Range of Motion, Tremors, Other ( ulcer of right lower leg medial aspect 8x5 cm,clean,no drainage) Neurological: Yes: 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, Alert, Motor Strength 5/5 Integumentary: Yes: Dry Lymphatic: Yes: Within Normal Limits - Diagnostic (1) Alcohol dependence with uncomplicated withdrawal Current Visit: No Status: Acute (2) Nicotine dependence Current Visit: No Status: Chronic Qualifiers: Nicotine product type: cigarettes Substance use status: uncomplicated Qualified Code(s): F17.210 - Nicotine dependence, cigarettes, uncomplicated (3) Edema extremities Current Visit: Yes Status: Acute (4) Ulcer of right leg Current Visit: Yes Status: Acute (5) History of deep venous thrombosis (DVT) of distal vein of right lower extremity Current Visit: Yes Status: Acute Cleared for Admission [facility] - Detox or Rehab [facility] Level of Care: Medically Managed Detox Regimen/Protocol: Librium S Breath Alcohol Content Breath Alcohol Content: 0.087 Urine Drug Screen - Results Drug Screen Negative: No Urine Drug Screen Results: BZO-Benzodiazepines
[2018-05-23] MEDS ORDERED: IBUPROFEN 400 MG TABLET (FP) PO PRN (13:26)
[2018-05-23] MEDS ORDERED: MAGNESIUM CITRATE 300 ML BOTTLE PO PRN (13:26)
[2018-05-23] MEDS ORDERED: MENTHOL/PHENOL 1 EACH UD MM PRN (13:26)
[2018-05-23] MEDS ORDERED: guaiFENesin/D-METHORPHAN HB 10 ML UNIT-DOSE CUPS PO PRN (13:26)
[2018-05-23] MEDS ORDERED: LOPERAMIDE HCL 2 MG CAPSULE PO PRN (13:26)
[2018-05-23] MEDS ORDERED: P-EPHED 60MG/TRIPROLIDI 2.5MG TABLET PO PRN (13:26)
[2018-05-23] MEDS ORDERED: MAGNESIUM HYDROX 2400MG/30ML ORAL SUSPENSION 30 ML CUP PO PRN (13:26)
[2018-05-23] MEDS ORDERED: chlordiazePOXIDE HCL 25 MG CAPSULE PO PRN (13:26)
[2018-05-23] MEDS ORDERED: MAG HYDROX/AL HYDROX/SIMETH 30 ML UNIT-DOSE CUP PO PRN (13:26)
[2018-05-23] MEDS ORDERED: ACETAMINOPHEN 325 MG TABLET (FP) PO PRN (13:26)
[2018-05-23] MEDS ORDERED: NICOTINE POLACRILEX 2 MG GUM BUC PRN (13:32)
[2018-05-23] MEDS: chlordiazePOXIDE HCL 25 MG CAPSULE PO SCH ×2 (17:33→22:36)
[2018-05-23] MEDS ORDERED: MELATONIN 5 MG TABLETS PO PRN (22:00)
[2018-05-23] MEDS: THIAMINE HCL 100 MG TABLET (FP) PO SCH (22:36)
[2018-05-23] MEDS: APIXABAN 5 MG TABLET PO SCH (22:36)
[2018-05-23] MEDS: BACITRACIN 0.9 GM PACKET TP SCH (22:40)
[2018-05-23 23:58] LABS: URINE APPEARANCE CLEAR; URINE BILIRUBIN NEGATIVE (<2.0 mg/dL); URINE COLOR LTYELLOW; URINE GLUCOSE (UA) NEGATIVE (NEGATIVE); URINE KETONE NEGATIVE (NEGATIVE); URINE LEUK ESTERASE NEGATIVE (NEGATIVE); URINE NITRITE NEGATIVE (NEGATIVE); URINE PROTEIN 1+ (NEGATIVE); URINE UROBILINOGEN NEGATIVE mg/dL (0.2-1.0)
[2018-05-24 00:01] LABS: URINE MUCUS RARE
[2018-05-24] MEDS: chlordiazePOXIDE HCL 25 MG CAPSULE PO SCH ×4 (05:21→22:39)
[2018-05-24] MEDS: BACITRACIN 0.9 GM PACKET TP SCH ×2 (10:19→22:38)
[2018-05-24] MEDS: PRENATAL VITAMINS W/ FOLIC ACID TABLET (FP) PO SCH (10:19)
[2018-05-24] MEDS: APIXABAN 5 MG TABLET PO SCH ×2 (10:20→22:39)
[2018-05-24 10:22] LABS: HEMATOCRIT 38.2 % (35.4-49); HEMOGLOBIN 12.3 GM/dL (11.7-16.9); MCH 31.9 pg (25.7-33.7); MCHC 32.1 g/dl (32.0-35.9); MEAN CELL VOLUME 99.2 fl (80-96); MEAN PLT VOLUME 8.5 fl (7.5-11.1); PLATELET COUNT 220 K/MM3 (134-434); RBC 3.85 M/mm3 (4.00-5.60); RDW 17.1 % (11.9-15.9); WHITE BLOOD COUNT 5.4 K/mm3 (4.0-10.0)
[2018-05-24 10:53] LABS: ALBUMIN 3.8 g/dl (3.4-5.0); ALK PHOS 87 U/L (45-117); ANION GAP 13 MMOL/L (8-16); BILIRUBIN,TOTAL 0.2 mg/dL (0.2-1); BLOOD UREA NITROGEN 23 mg/dL (7-18); CALCIUM 8.8 mg/dL (8.5-10.1); CHLORIDE 107 mmol/L (98-107); CO2 23 mmol/L (21-32); CREATININE 1.7 mg/dL (0.55-1.3); GLUCOSE,RANDOM 104 mg/dL (74-106); POTASSIUM 4.2 mmol/L (3.5-5.1); SGOT/AST 37 U/L (15-37); SGPT/ALT 34 U/L (13-61); SODIUM 142 mmol/L (136-145); TOT PROT 7.9 g/dl (6.4-8.2)
--- NOTE | 2018-05-24 11:31 | PN ---
S CIWA - CIWA Score Nausea/Vomitin-Mild Nausea/No Vomiting Muscle Tremors: 3 Anxiety: 2 Agitation: 2 Paroxysmal Sweats: 1-Minimal Palms Moist Orientation: 1-Uncertain about Date Tacttile Disturbances: 1-Very Mild Itch/Numbness Auditory Disturbances: 0-None Visual Disturbances: 0-None Headache: 1-Very Mild CIWA-Ar Total Score: 12 BHS Progress Note (SOAP) Subjective: tremor sweat anxiety trouble sleep at night Objective: 05/24/18 11:32 Vital Signs Temperature 97.6 F 05/24/18 09:31 Pulse Rate 87 05/24/18 09:31 Respiratory Rate 20 05/24/18 09:31 Blood Pressure 120/78 05/24/18 09:31 O2 Sat by Pulse Oximetry (%) Laboratory Last Values WBC 5.4 K/mm3 (4.0-10.0) 05/24/18 05:40 RBC 3.85 M/mm3 (4.00-5.60) L 05/24/18 05:40 Hgb 12.3 GM/dL (11.7-16.9) 05/24/18 05:40 Hct 38.2 % (35.4-49) D 05/24/18 05:40 MCV 99.2 fl (80-96) H 05/24/18 05:40 MCH 31.9 pg (25.7-33.7) 05/24/18 05:40 MCHC 32.1 g/dl (32.0-35.9) 05/24/18 05:40 RDW 17.1 % (11.9-15.9) H 05/24/18 05:40 Plt Count 220 K/MM3 (134-434) D 05/24/18 05:40 MPV 8.5 fl (7.5-11.1) 05/24/18 05:40 Sodium 142 mmol/L (136-145) 05/24/18 05:40 Potassium 4.2 mmol/L (3.5-5.1) 05/24/18 05:40 Chloride 107 mmol/L (98-107) 05/24/18 05:40 Carbon Dioxide 23 mmol/L (21-32) 05/24/18 05:40 Anion Gap 13 MMOL/L (8-16) 05/24/18 05:40 BUN 23 mg/dL (7-18) H 05/24/18 05:40 Creatinine 1.7 mg/dL (0.55-1.3) H 05/24/18 05:40 Creat Clearance w eGFR 42.54 (>60) 05/24/18 05:40 Random Glucose 104 mg/dL (74-106) 05/24/18 05:40 Calcium 8.8 mg/dL (8.5-10.1) 05/24/18 05:40 Total Bilirubin 0.2 mg/dL (0.2-1) 05/24/18 05:40 AST 37 U/L (15-37) 05/24/18 05:40 ALT 34 U/L (13-61) 05/24/18 05:40 Alkaline Phosphatase 87 U/L (45-117) 05/24/18 05:40 Total Protein 7.9 g/dl (6.4-8.2) 05/24/18 05:40 Albumin 3.8 g/dl (3.4-5.0) 05/24/18 05:40 Urine Color Ltyellow 05/23/18 23:45 Urine Appearance Clear 05/23/18 23:45 Urine pH 5.0 (5.0-8.0) D 05/23/18 23:45 Ur Specific [place] 1.011 (1.010-1.035) 05/23/18 23:45 Urine Protein 1+ (NEGATIVE) H 05/23/18 23:45 Urine Glucose (UA) Negative (NEGATIVE) 05/23/18 23:45 Urine Ketones Negative (NEGATIVE) 05/23/18 23:45 Urine Blood Negative (NEGATIVE) 05/23/18 23:45 Urine Nitrite Negative (NEGATIVE) 05/23/18 23:45 Urine Bilirubin Negative (<2.0 mg/dL) 05/23/18 23:45 Urine Urobilinogen Negative mg/dL (0.2-1.0) 05/23/18 23:45 Ur Leukocyte Esterase Negative (NEGATIVE) 05/23/18 23:45 Urine WBC (Auto) <1 /hpf (3-5) 05/23/18 23:45 Urine RBC (Auto) <1 /hpf (0-3) 05/23/18 23:45 Urine Mucus Rare 05/23/18 23:45 lab noted repeat camp Assessment: 05/24/18 11:34 withdrawal sx renal insufficient Plan: [id number] detox repeat camp
[2018-05-24] MEDS: THIAMINE HCL 100 MG TABLET (FP) PO SCH (22:39)
[2018-05-25] MEDS: chlordiazePOXIDE HCL 25 MG CAPSULE PO SCH ×2 (05:23→10:25)
[2018-05-25 10:16] LABS: ALK PHOS 76 U/L (45-117); ANION GAP 8 MMOL/L (8-16); BILIRUBIN,TOTAL 0.2 mg/dL (0.2-1); BLOOD UREA NITROGEN 15 mg/dL (7-18); CALCIUM 8.4 mg/dL (8.5-10.1); CHLORIDE 107 mmol/L (98-107); CO2 25 mmol/L (21-32); CREATININE 1.2 mg/dL (0.55-1.3); GLUCOSE,RANDOM 85 mg/dL (74-106); POTASSIUM 4.2 mmol/L (3.5-5.1); SGOT/AST 25 U/L (15-37); SGPT/ALT 25 U/L (13-61); SODIUM 140 mmol/L (136-145); TOT PROT 6.5 g/dl (6.4-8.2)
[2018-05-25] MEDS: APIXABAN 5 MG TABLET PO SCH ×2 (10:25→22:35)
[2018-05-25] MEDS: PRENATAL VITAMINS W/ FOLIC ACID TABLET (FP) PO SCH (10:25)
[2018-05-25] MEDS: BACITRACIN 0.9 GM PACKET TP SCH ×2 (10:25→22:34)
--- NOTE | 2018-05-25 11:35 | PN ---
[facility] CIWA - CIWA Score Nausea/Vomitin-No Nausea/No Vomiting Muscle Tremors: 2 Anxiety: 2 Agitation: 2 Paroxysmal Sweats: 3 Orientation: 0-Oriented Tacttile Disturbances: 0-None Auditory Disturbances: 0-None Visual Disturbances: 0-None Headache: 0-None Present CIWA-Ar Total Score: 9 S Progress Note (SOAP) Subjective: PATIENT ANXIOUS, MILDLY RESTLESSNESS. C/O SWEATING AND SHAKES Objective: 05/25/18 11:34 Last Vital Signs Temp Pulse Resp BP Pulse Ox 96.8 F L 92 H 18 136/89 05/25/18 09:59 05/25/18 09:59 05/25/18 09:59 05/25/18 09:59 Laboratory Tests 05/23/18 05/24/18 05/24/18 23:45 05:40 05:40 WBC 5.4 RBC 3.85 L Hgb 12.3 Hct 38.2 D MCV 99.2 H MCH 31.9 MCHC 32.1 RDW 17.1 H Plt Count 220 D MPV 8.5 Sodium 142 Potassium 4.2 Chloride 107 Carbon Dioxide 23 Anion Gap 13 BUN 23 H Creatinine 1.7 H Creat Clearance w eGFR 42.54 Random Glucose 104 Calcium 8.8 Total Bilirubin 0.2 AST 37 ALT 34 Alkaline Phosphatase 87 Total Protein 7.9 Albumin 3.8 Urine Color Ltyellow Urine Appearance Clear Urine pH 5.0 D Ur Specific [place] 1.011 Urine Protein 1+ H Urine Glucose (UA) Negative Urine Ketones Negative Urine Blood Negative Urine Nitrite Negative Urine Bilirubin Negative Urine Urobilinogen Negative Ur Leukocyte Esterase Negative Urine WBC (Auto) <1 Urine RBC (Auto) <1 Urine Mucus Rare RPR Titer 05/24/18 05/25/18 05:40 07:00 WBC RBC Hgb Hct MCV MCH MCHC RDW Plt Count MPV Sodium 140 Potassium 4.2 Chloride 107 Carbon Dioxide 25 Anion Gap 8 BUN 15 Creatinine 1.2 Creat Clearance w eGFR > 60 Random Glucose 85 Calcium 8.4 L Total Bilirubin 0.2 AST 25 ALT 25 Alkaline Phosphatase 76 Total Protein 6.5 Albumin 3.0 L Urine Color Urine Appearance Urine pH Ur Specific [place] Urine Protein Urine Glucose (UA) Urine Ketones Urine Blood Urine Nitrite Urine Bilirubin Urine Urobilinogen Ur Leukocyte Esterase Urine WBC (Auto) Urine RBC (Auto) Urine Mucus RPR Titer Nonreactive PE: ALERT AND ORIENTED X 3 SKIN WARM, +FACIAL MOISTURE CAR S1S2 RESP CTA BL EXT FULL ROM Assessment: 05/25/18 11:35 WITHDRAWAL SX Plan: ENCOURAGE ORAL FLUIDS CONTINUE DETOX MONITOR CLINICALLY
[2018-05-25] MEDS: chlordiazePOXIDE 5 MG CAPSULE PO SCH ×2 (17:05→22:35)
[2018-05-25] MEDS: THIAMINE HCL 100 MG TABLET (FP) PO SCH (22:35)
[2018-05-26] MEDS: chlordiazePOXIDE 5 MG CAPSULE PO SCH ×2 (05:37→10:25)
[2018-05-26] MEDS: APIXABAN 5 MG TABLET PO SCH ×2 (10:24→22:19)
[2018-05-26] MEDS: PRENATAL VITAMINS W/ FOLIC ACID TABLET (FP) PO SCH (10:24)
[2018-05-26] MEDS: BACITRACIN 0.9 GM PACKET TP SCH ×2 (10:24→22:54)
--- NOTE | 2018-05-26 14:57 | PN ---
BHS Progress Note (SOAP) Subjective: Sweats Sleep disturbance Objective: 05/26/18 14:56 A & O x 3 In bed, no distress noted Vital Signs Temperature 97.4 F L 05/26/18 13:58 Pulse Rate 89 05/26/18 13:58 Respiratory Rate 18 05/26/18 13:58 Blood Pressure 139/87 05/26/18 13:58 O2 Sat by Pulse Oximetry (%) Assessment: 05/26/18 14:57 withdrawal sx Plan: continue detox
[2018-05-26] MEDS: chlordiazePOXIDE HCL 10 MG CAPSULE PO SCH ×2 (17:20→22:20)
[2018-05-26] MEDS: THIAMINE HCL 100 MG TABLET (FP) PO SCH (22:19)
[2018-05-27] MEDS: chlordiazePOXIDE HCL 10 MG CAPSULE PO SCH ×2 (05:31→10:08)
[2018-05-27] MEDS: BACITRACIN 0.9 GM PACKET TP SCH ×2 (10:08→22:16)
[2018-05-27] MEDS: APIXABAN 5 MG TABLET PO SCH ×2 (10:08→22:17)
[2018-05-27] MEDS: PRENATAL VITAMINS W/ FOLIC ACID TABLET (FP) PO SCH (10:08)
--- NOTE | 2018-05-27 14:33 | PN ---
BHS Progress Note (SOAP) Subjective: Anxious, sweating, interrupted sleep. Patient is for discharge tomorrow to rehab. Objective: 05/27/18 14:30 Last Vital Signs Temp Pulse Resp BP Pulse Ox 98.7 F 88 16 129/89 05/27/18 13:38 05/27/18 13:38 05/27/18 13:38 05/27/18 13:38 Laboratory Tests 05/23/18 05/24/18 05/24/18 23:45 05:40 05:40 WBC 5.4 RBC 3.85 L Hgb 12.3 Hct 38.2 D MCV 99.2 H MCH 31.9 MCHC 32.1 RDW 17.1 H Plt Count 220 D MPV 8.5 Sodium 142 Potassium 4.2 Chloride 107 Carbon Dioxide 23 Anion Gap 13 BUN 23 H Creatinine 1.7 H Creat Clearance w eGFR 42.54 Random Glucose 104 Calcium 8.8 Total Bilirubin 0.2 AST 37 ALT 34 Alkaline Phosphatase 87 Total Protein 7.9 Albumin 3.8 Urine Color Ltyellow Urine Appearance Clear Urine pH 5.0 D Ur Specific [place] 1.011 Urine Protein 1+ H Urine Glucose (UA) Negative Urine Ketones Negative Urine Blood Negative Urine Nitrite Negative Urine Bilirubin Negative Urine Urobilinogen Negative Ur Leukocyte Esterase Negative Urine WBC (Auto) <1 Urine RBC (Auto) <1 Urine Mucus Rare RPR Titer 05/24/18 05/25/18 05:40 07:00 WBC RBC Hgb Hct MCV MCH MCHC RDW Plt Count MPV Sodium 140 Potassium 4.2 Chloride 107 Carbon Dioxide 25 Anion Gap 8 BUN 15 Creatinine 1.2 Creat Clearance w eGFR > 60 Random Glucose 85 Calcium 8.4 L Total Bilirubin 0.2 AST 25 ALT 25 Alkaline Phosphatase 76 Total Protein 6.5 Albumin 3.0 L Urine Color Urine Appearance Urine pH Ur Specific [place] Urine Protein Urine Glucose (UA) Urine Ketones Urine Blood Urine Nitrite Urine Bilirubin Urine Urobilinogen Ur Leukocyte Esterase Urine WBC (Auto) Urine RBC (Auto) Urine Mucus RPR Titer Nonreactive Labs reviewed: UA shows 1+ protein Assessment: 05/27/18 14:33 Withdrawal symptoms Noted with proteinuria Plan: Continue detox Proteinuria: encouraged PO water intake, repeat UA
[2018-05-27 21:32] LABS: URINE APPEARANCE CLEAR; URINE BILIRUBIN NEGATIVE (<2.0 mg/dL); URINE COLOR YELLOW; URINE GLUCOSE (UA) NEGATIVE (NEGATIVE); URINE KETONE NEGATIVE (NEGATIVE); URINE LEUK ESTERASE NEGATIVE (NEGATIVE); URINE NITRITE NEGATIVE (NEGATIVE); URINE PROTEIN 1+ (NEGATIVE); URINE UROBILINOGEN NEGATIVE mg/dL (0.2-1.0)
[2018-05-27 21:33] LABS: URINE BACTERIA RARE /hpf (NONE SEEN); URINE MUCUS RARE
[2018-05-27] MEDS: THIAMINE HCL 100 MG TABLET (FP) PO SCH (22:17)
--- NOTE | 2018-05-28 08:56 | DS ---
[facility] Detox Discharge Summary Admission Date: 05/23/18 Discharge Date: 05/28/18 - History Present History: Alcohol Dependence Additional Comments: 52 years old male admitted on 05/23/18 for alcohol withdrawal sx completed alcohol detox regimen tolerated well denies alcohol withdrawal sx alert oriented x 3 no acute distress aftercare [facility] - Physical Exam Results Vital Signs: Vital Signs Temperature 97 F L 05/28/18 06:17 Pulse Rate 78 05/28/18 06:17 Respiratory Rate 18 05/28/18 06:30 Blood Pressure 124/84 05/28/18 06:17 O2 Sat by Pulse Oximetry (%) Pertinent Admission Physical Exam Findings: alcohol withdrawal sx Vital Signs Temperature 97.4 F L 05/28/18 09:09 Pulse Rate 91 H 05/28/18 09:09 Respiratory Rate 20 05/28/18 09:09 Blood Pressure 146/100 05/28/18 09:09 O2 Sat by Pulse Oximetry (%) Laboratory Last Values WBC 5.4 K/mm3 (4.0-10.0) 05/24/18 05:40 RBC 3.85 M/mm3 (4.00-5.60) L 05/24/18 05:40 Hgb 12.3 GM/dL (11.7-16.9) 05/24/18 05:40 Hct 38.2 % (35.4-49) D 05/24/18 05:40 MCV 99.2 fl (80-96) H 05/24/18 05:40 MCH 31.9 pg (25.7-33.7) 05/24/18 05:40 MCHC 32.1 g/dl (32.0-35.9) 05/24/18 05:40 RDW 17.1 % (11.9-15.9) H 05/24/18 05:40 Plt Count 220 K/MM3 (134-434) D 05/24/18 05:40 MPV 8.5 fl (7.5-11.1) 05/24/18 05:40 Sodium 140 mmol/L (136-145) 05/25/18 07:00 Potassium 4.2 mmol/L (3.5-5.1) 05/25/18 07:00 Chloride 107 mmol/L (98-107) 05/25/18 07:00 Carbon Dioxide 25 mmol/L (21-32) 05/25/18 07:00 Anion Gap 8 MMOL/L (8-16) 05/25/18 07:00 BUN 15 mg/dL (7-18) 05/25/18 07:00 Creatinine 1.2 mg/dL (0.55-1.3) 05/25/18 07:00 Creat Clearance w eGFR > 60 (>60) 05/25/18 07:00 Random Glucose 85 mg/dL (74-106) 05/25/18 07:00 Calcium 8.4 mg/dL (8.5-10.1) L 05/25/18 07:00 Total Bilirubin 0.2 mg/dL (0.2-1) 05/25/18 07:00 AST 25 U/L (15-37) 05/25/18 07:00 ALT 25 U/L (13-61) 05/25/18 07:00 Alkaline Phosphatase 76 U/L (45-117) 05/25/18 07:00 Total Protein 6.5 g/dl (6.4-8.2) 05/25/18 07:00 Albumin 3.0 g/dl (3.4-5.0) L 05/25/18 07:00 Urine Color Yellow 05/27/18 19:00 Urine Appearance Clear 05/27/18 19:00 Urine pH 6.0 (5.0-8.0) 05/27/18 19:00 Ur Specific [place] 1.017 (1.010-1.035) 05/27/18 19:00 Urine Protein 1+ (NEGATIVE) H 05/27/18 19:00 Urine Glucose (UA) Negative (NEGATIVE) 05/27/18 19:00 Urine Ketones Negative (NEGATIVE) 05/27/18 19:00 Urine Blood Negative (NEGATIVE) 05/27/18 19:00 Urine Nitrite Negative (NEGATIVE) 05/27/18 19:00 Urine Bilirubin Negative (<2.0 mg/dL) 05/27/18 19:00 Urine Urobilinogen Negative mg/dL (0.2-1.0) 05/27/18 19:00 Ur Leukocyte Esterase Negative (NEGATIVE) 05/27/18 19:00 Urine WBC (Auto) 1 /hpf (3-5) 05/27/18 19:00 Urine RBC (Auto) 2 /hpf (0-3) 05/27/18 19:00 Urine Bacteria Rare /hpf (NONE SEEN) 05/27/18 19:00 Urine Mucus Rare 05/27/18 19:00 RPR Titer Nonreactive (NONREACTIVE) 05/24/18 05:40 lab noted - Treatment Hospital Course: Detox Protocol Followed, Detoxed Safely, Responded well, Discharged Condition Good, Rehab Referral Accepted Patient has Accepted a Rehab Referral to: [facility] - Medication Discharge Medications: Ambulatory Orders Apixaban [Eliquis] 10 mg PO BID #30 tablet 05/28/18 - Diagnosis (1) Alcohol dependence with uncomplicated withdrawal Current Visit: Yes Status: Acute (2) Renal insufficiency Current Visit: Yes Status: Chronic (3) Nicotine dependence Current Visit: Yes Status: Acute Qualifiers: Nicotine product type: cigarettes Substance use status: in withdrawal Qualified Code(s): F17.213 - Nicotine dependence, cigarettes, with withdrawal (4) Substance induced mood disorder Current Visit: Yes Status: Suspected (5) PVD (peripheral vascular disease) Current Visit: Yes Status: Chronic - AMA Did Patient Leave Against Medical Advice: No
[2018-05-28 09:10] VITALS: BP 146/100; PULSE 91; TEMP 97.4
[2018-05-28] MEDS: APIXABAN 5 MG TABLET PO SCH (09:33)
[2018-05-28] MEDS: PRENATAL VITAMINS W/ FOLIC ACID TABLET (FP) PO SCH (09:33)
[2018-05-28] MEDS: BACITRACIN 0.9 GM PACKET TP SCH (09:34)
== END 2018-05-28 14:57 | disposition other institution (70) | DRG 775 ==
LOC: YASAS 09:48 → Y3N 12:35
PROVIDERS: ADMIT Neuromusculoskeletal Medicine & OMM; ATTEND Neuromusculoskeletal Medicine & OMM
PROC: HZ2ZZZZ Detoxification Services for Substance Abuse Treatment (ICD-10-PCS; principal; 2018-05-23)
DX: F10.230 Alcohol dependence with withdrawal, uncomplicated (principal); F17.213 Nicotine dependence, cigarettes, with withdrawal; F19.24 Other psychoactive substance dependence with psychoactive substance-induced mood disorder; R80.9 Proteinuria, unspecified; N28.9 Disorder of kidney and ureter, unspecified; I73.9 Peripheral vascular disease, unspecified; R60.0 Localized edema; I83.019 Varicose veins of right lower extremity with ulcer of unspecified site; L97.919 Non-pressure chronic ulcer of unspecified part of right lower leg with unspecified severity; Z86.718 Personal history of other venous thrombosis and embolism; Z79.01 Long term (current) use of anticoagulants
CPT/HCPCS: 36415; 80053; 81003; 81015; 85027; 86593

== ENCOUNTER 2018-05-28 14:55 | Inpatient (IN) | payer OTHER ==
--- NOTE | 2018-05-28 11:28 | HP ---
[facility] Rehab Assess/Revision - Admission History Admitted to Rehab from: [facility] Date of Admission to Rehab: 05/28/18 - Vital signs Vital Signs: 05/28/18 - Findings Detox History & Physical reviewed: Yes Concur with findings: Yes Comments/Additional Findings: transferred from detox to rehab admission as per protocol Inpatient Rehab Admission - Initial Determination Are CD services needed?: Yes Free of communicable disease: Yes Not in need of hospitalization: Yes - Rehab Admission Criteria Previous failed treatment: Yes Poor recovery environment: Yes Comorbidities: Yes Lacks judgement: No Patient is meeting Inpatient Rehab admission criteria:: Yes
[~2018-05-28 14:55] MED LIST: ACETAMINOPHEN 325 MG TABLET (FP) PO PRN; IBUPROFEN 400 MG TABLET (FP) PO PRN; LOPERAMIDE HCL 2 MG CAPSULE PO PRN; MAG HYDROX/AL HYDROX/SIMETH 30 ML UNIT-DOSE CUP PO PRN; MAGNESIUM CITRATE 300 ML BOTTLE PO PRN; MAGNESIUM HYDROX 2400MG/30ML ORAL SUSPENSION 30 ML CUP PO PRN; MENTHOL/PHENOL 1 EACH UD MM PRN; NICOTINE 14 MG/24 HOURS TOPICAL PATCH TD PRN; P-EPHED 60MG/TRIPROLIDI 2.5MG TABLET PO PRN; guaiFENesin/D-METHORPHAN HB 10 ML UNIT-DOSE CUPS PO PRN
--- NOTE | 2018-05-28 16:51 | HP ---
Psychiatrist Admission - Data Date of interview: 05/28/18 Admission source: Transfer from [address] [place] [address] Identifying data: Case of a 52 y/o AA male who completed detoxification at [address] [place] [address], now seeking rehabilitation treatment at [address] to address alcohol dependence co-morbid with MDD. Patient is single without dependents, domiciled,unemployed and supported on SSI benefits. Medical History: Vascular insufficiency (lower extremities). DVT in right leg. History of treatment for gonorrhea. Psychiatric History: History of one psychiatric hospitalization at [facility] for depression. Diagnosed with MDD and Anxiety Disorder. Patient indicates that he was medicated, in the past, with risperdal and citalopram. Has been referred to [facility] OPD clinic for follow up but never showed up. Mr Cuevas declares that he has not taken his prescribed psychotropic medications for many months. Denies history of suicide attempts. Physical/Sexual Abuse/Trauma History: Patient denies history of abuse. Additional Comment: Profile of substance abuse. Discussed in this session. Details in current [facility] report : Smoking history: Current every day smoker. Have you smoked in the past 12 months: Yes. Aproximately how many cigarettes per day: 10. Cigars Per Day: 0. Hx Chewing Tobacco Use: No. Initiated information on smoking cessation: Yes. 'Breaking Loose' booklet given: . - Substance & Tx. History. Hx Alcohol Use: Yes. Hx Substance Use: No. Substance Use Type: Alcohol. Hx Substance Use Treatment: Yes ([facility] 11/25/17 to 11/29/17). - Substances Abused. Alcohol. Route: Oral. Frequency: Daily. Amount used: 2 PINTS OF VODKA. Age of first use: 18. Date of Last Use: . Urine Drug Screen Results: BZO-Benzodiazepines. Noted. Allergies/Adverse Reactions: Allergies Allergy/AdvReac Type Severity Reaction Status Date / Time maitake mushroom Allergy Mild Nausea Verified 05/23/18 10:56 strawberry [[place]] Allergy Mild Rash Verified 05/23/18 10:56 No Known Drug Allergies Allergy Verified 05/23/18 10:56 mushrooms Allergy Mild Rash Uncoded 05/23/18 10:56 - Substance Abuse/Tx History Hx Alcohol Use: Yes (for past three years) Hx Substance Use: Yes (alcohol and nicotine ; smokes 1/2 pack of cigarettes/day) Substance Use Type: Alcohol (reportedly consumes 2 pints of vodka on a daily basis for past three years) Hx Substance Use Treatment: Yes (known to [facility]) Mental Status Exam - Mental Status Exam Alert and Oriented to: Time, Place, Person Cognitive Function: Good Patient Appearance: Well Groomed Mood: Withdrawn (dysphoric), Hopeful Affect: Appropriate, Normal Range Patient Behavior: Appropriate, Cooperative Speech Pattern: Clear Voice Loudness: Normal Thought Process: Intact, Goal Oriented Thought Disorder: Not Present Hallucinations: Denies Suicidal Ideation: Denies Homicidal Ideation: Denies Insight/Judgement: Fair Sleep: Well Appetite: Good Muscle strength/Tone: Normal Gait/Station: Normal Psychiatric Findings - Problem List ([place] 1, 2,3) (1) Alcohol dependence Current Visit: Yes Status: Acute (2) Nicotine dependence Current Visit: Yes Status: Acute Qualifiers: Nicotine product type: cigarettes Substance use status: in withdrawal Qualified Code(s): F17.213 - Nicotine dependence, cigarettes, with withdrawal (3) Substance induced mood disorder Current Visit: Yes Status: Suspected - Initial Treatment Plan Initial Treatment Plan: Psychoeducation. Sleep hygiene. Psychotherapy : individual, supportive, group and cognitive. Patient is made aware of currently available treatments for relapse prevention (pharmacotherapy : naltrexone, acamprosate, disulfiram ; AA fellowship, counseling, psychotherapy). Motivational sessions recommended. Observation.
[2018-05-28] MEDS: THIAMINE HCL 100 MG TABLET (FP) PO SCH (21:36)
[2018-05-28] MEDS: APIXABAN 5 MG TABLET PO SCH (21:36)
[2018-05-28] MEDS ORDERED: MELATONIN 5 MG TABLETS PO PRN (22:00)
[2018-05-29] MEDS: PRENATAL VITAMINS W/ FOLIC ACID TABLET (FP) PO SCH (10:06)
[2018-05-29] MEDS: APIXABAN 5 MG TABLET PO SCH ×2 (10:06→21:41)
--- NOTE | 2018-05-29 14:28 | PN ---
BHS Progress Note Note: PT IS A NEW ADMIT FROM DETOX. PT HAS A HX OF CURRENT ULCER ON LEFT ANKLE. Vital Signs 05/29/18 06:54 Temperature 97.5 F L Pulse Rate 85 Respiratory 20 Rate Blood Pressure 147/95 PLAN;
[2018-05-29] MEDS: AMMONIUM LACTATE 12% LOTION 225 GM BOTTLE TP SCH ×2 (14:33→22:19)
[2018-05-29] MEDS: THIAMINE HCL 100 MG TABLET (FP) PO SCH (21:41)
[2018-05-29] MEDS: NICOTINE POLACRILEX 2 MG GUM BUC PRN (21:41)
[2018-05-29] MEDS: SILVER SULFADIAZINE 1% TOP CREAM 50 GM JAR TP SCH (22:19)
[2018-05-30] MEDS: APIXABAN 5 MG TABLET PO SCH ×2 (10:20→21:50)
[2018-05-30] MEDS: PRENATAL VITAMINS W/ FOLIC ACID TABLET (FP) PO SCH (10:20)
[2018-05-30] MEDS: SILVER SULFADIAZINE 1% TOP CREAM 50 GM JAR TP SCH (10:21)
[2018-05-30] MEDS: AMMONIUM LACTATE 12% LOTION 225 GM BOTTLE TP SCH ×2 (10:21→21:50)
[2018-05-30] MEDS: NICOTINE POLACRILEX 2 MG GUM BUC PRN (12:50)
[2018-05-30] MEDS ORDERED: PT OWN MED DRAWER 7, Y5N ONE (20:33)
[2018-05-30] MEDS: THIAMINE HCL 100 MG TABLET (FP) PO SCH (21:50)
[2018-05-31] MEDS: APIXABAN 5 MG TABLET PO SCH ×2 (10:16→21:41)
[2018-05-31] MEDS: PRENATAL VITAMINS W/ FOLIC ACID TABLET (FP) PO SCH (10:16)
[2018-05-31] MEDS: AMMONIUM LACTATE 12% LOTION 225 GM BOTTLE TP SCH ×2 (10:16→21:41)
[2018-05-31] MEDS: SILVER SULFADIAZINE 1% TOP CREAM 50 GM JAR TP SCH (10:17)
[2018-05-31] MEDS: THIAMINE HCL 100 MG TABLET (FP) PO SCH (21:40)
[2018-06-01] MEDS: SILVER SULFADIAZINE 1% TOP CREAM 50 GM JAR TP SCH (10:43)
[2018-06-01] MEDS: PRENATAL VITAMINS W/ FOLIC ACID TABLET (FP) PO SCH (10:43)
[2018-06-01] MEDS: APIXABAN 5 MG TABLET PO SCH ×2 (10:43→21:34)
[2018-06-01] MEDS: AMMONIUM LACTATE 12% LOTION 225 GM BOTTLE TP SCH ×3 (10:43→21:34)
[2018-06-01] MEDS: THIAMINE HCL 100 MG TABLET (FP) PO SCH (21:34)
[2018-06-02] MEDS ORDERED: PT OWN MED DRAWER 7, Y5N ONE (08:58)
[2018-06-02] MEDS: APIXABAN 5 MG TABLET PO SCH ×2 (09:43→21:52)
[2018-06-02] MEDS: AMMONIUM LACTATE 12% LOTION 225 GM BOTTLE TP SCH ×2 (09:43→21:52)
[2018-06-02] MEDS: SILVER SULFADIAZINE 1% TOP CREAM 50 GM JAR TP SCH (09:43)
[2018-06-02] MEDS: PRENATAL VITAMINS W/ FOLIC ACID TABLET (FP) PO SCH (09:43)
[2018-06-02] MEDS: THIAMINE HCL 100 MG TABLET (FP) PO SCH (21:52)
[2018-06-03] MEDS: SILVER SULFADIAZINE 1% TOP CREAM 50 GM JAR TP SCH (10:00)
[2018-06-03] MEDS: APIXABAN 5 MG TABLET PO SCH ×2 (10:01→22:07)
[2018-06-03] MEDS: PRENATAL VITAMINS W/ FOLIC ACID TABLET (FP) PO SCH (10:01)
[2018-06-03] MEDS: AMMONIUM LACTATE 12% LOTION 225 GM BOTTLE TP SCH ×2 (10:01→22:07)
[2018-06-03] MEDS: THIAMINE HCL 100 MG TABLET (FP) PO SCH (22:07)
[2018-06-04 07:09] VITALS: BP 125/80; PULSE 82; TEMP 97.6
--- NOTE | 2018-06-04 09:13 | PN ---
Psychiatric Progress Note Vital Signs: Vital Signs Period Temp Pulse Resp BP Sys/Irvin Pulse Ox Last 24 Hr 97.6 F 82 18-18 125/80 Date of Session: 06/04/18 Chief Complaint:: Discharge Note HPI: Patient addressing Alcohol Dependence comorbid with Nicotine Dependence and Alcohol -Induced Mood Disorder ROS: DVT Current Medications: Active Medications Generic Name Dose Route Start Last Admin Trade Name Freq PRN Reason Stop Dose Admin Acetaminophen 650 mg 05/28/18 11:29 05/29/18 06:25 Tylenol - PO 650 mg Q4H PRN Administration FEVER Al Hydroxide/Mg Hydroxide 30 ml 05/28/18 11:29 Mylanta Oral Suspension - PO Q6H PRN DYSPEPSIA Apixaban 5 mg 05/31/18 10:00 06/03/18 22:07 Eliquis - PO 5 mg BID NED Administration Eucalyptus/Menthol/Phenol/Sorbitol 1 each 05/28/18 11:29 Cepastat Lozenge - MM Q4H PRN SORE THROAT Guaifenesin 10 ml 05/28/18 11:29 Robitussin Dm - PO Q6H PRN COUGH Lactic Acid 1 applic 05/29/18 12:00 06/03/18 22:07 Lac-Hydrin 12 TP Not Given BID NED Loperamide HCl 4 mg 05/28/18 11:29 Imodium - PO Q6H PRN DIARRHEA Magnesium Citrate 300 ml 05/28/18 11:29 Citroma - PO Q48H PRN CONSTIPATION Magnesium Hydroxide 30 ml 05/28/18 11:29 Milk Of Magnesia - PO DAILY PRN CONSTIPATION Melatonin 5 mg 05/28/18 22:00 Melatonin PO HS PRN INSOMNIA Nicotine 14 mg 05/28/18 11:29 Nicoderm Patch - TD DAILY PRN WITHDRAWAL(CONT SUBST) Nicotine Polacrilex 2 mg 05/28/18 11:29 05/30/18 12:50 Nicorette Gum - BUC 2 mg Q2H PRN Administration NICOTINE REPLACEMENT RX Multivit/Folic Acid/Iron 1 tab 05/29/18 10:00 06/03/18 10:01 Vitamins (Sjr) - PO 1 tab DAILY NED Administration Pseudoephedrine/Triprolidine 1 combo 05/28/18 11:29 Actifed - PO TID PRN NASAL CONGESTION Silver Sulfadiazine 1 applic 05/31/18 10:00 12/02/18 10:00 Silvadene - TP 1 applic DAILY NED Administration Thiamine HCl 100 mg 05/28/18 22:00 06/03/18 22:07 Vitamin B1 - PO 100 mg HS NED Administration Current Side Effect: No Lab tests ordered: Yes Lab tests reviewed: Yes Provider note:: Patient has completed his treatment today. He has partially met his treatment goals and will continue to address his issues in outpatient treatment at [facility] at [address] [place] [address]. Told justowriter operator that from his participation in this program, he has learned that he does not have to be a loser in life. He is stable for discharge today Total face to face time:: 35 Mental Status Exam - Mental Status Exam Alert and Oriented to: Time, Place, Person Cognitive Function: Fair Patient Appearance: Well Groomed Mood: Hopeful, Euthymic Affect: Appropriate Patient Behavior: Cooperative Speech Pattern: Clear Voice Loudness: Normal Thought Process: Intact, Goal Oriented Thought Disorder: Not Present Hallucinations: Denies Suicidal Ideation: Denies Homicidal Ideation: Denies Insight/Judgement: Fair Sleep: Well Appetite: Good Muscle strength/Tone: Normal Gait/Station: Normal Psychiatric Treatment Plan - Problem List (1) Alcohol dependence Current Visit: Yes (2) Nicotine dependence Current Visit: Yes Qualifiers: Nicotine product type: cigarettes Substance use status: in withdrawal Qualified Code(s): F17.213 - Nicotine dependence, cigarettes, with withdrawal (3) Substance induced mood disorder Current Visit: Yes (4) PVD (peripheral vascular disease) Current Visit: No Initial treatment plan: Patient is discharged today and referred to [facility] for outpatient treatment
== END 2018-06-04 09:25 | disposition home or self-care (01) | DRG 772 ==
LOC: YASAS 14:55 → Y3W 14:56
PROVIDERS: ADMIT Psychiatry & Neurology Psychiatry; ATTEND Psychiatry & Neurology Psychiatry
PROC: HZ42ZZZ Group Counseling for Substance Abuse Treatment, Cognitive-Behavioral (ICD-10-PCS; principal; 2018-05-28)
DX: F10.20 Alcohol dependence, uncomplicated (principal); F17.213 Nicotine dependence, cigarettes, with withdrawal; F19.24 Other psychoactive substance dependence with psychoactive substance-induced mood disorder; F10.24 Alcohol dependence with alcohol-induced mood disorder; L97.919 Non-pressure chronic ulcer of unspecified part of right lower leg with unspecified severity; I73.9 Peripheral vascular disease, unspecified; Z86.718 Personal history of other venous thrombosis and embolism; Z79.01 Long term (current) use of anticoagulants

== ENCOUNTER 2018-12-04 10:03 | Inpatient (IN) | payer OTHER ==
[2018-12-04 10:41] VITALS: BMI 34.5
--- NOTE | 2018-12-04 12:27 | HP ---
CIWA Score Nausea/Vomitin-No Nausea/No Vomiting Muscle Tremors: 4-Moderate,w/Arms Extend Anxiety: 3 Agitation: 3 Paroxysmal Sweats: 3 Orientation: 0-Oriented Tacttile Disturbances: 0-None Auditory Disturbances: 0-None Visual Disturbances: 0-None Headache: 1-Very Mild CIWA-Ar Total Score: 14 - Admission Criteria OASAS Guidelines: Admission for Medically Managed Detox: Requires at least one of the followin. CIWA greater than 12 2. Seizures within the past 24 hours 3. Delirium tremens within the past 24 hours 4. Hallucinations within the past 24 hours 5. Acute intervention needed for co occurring medical disorder 6. Acute intervention needed for co occurring psychiatric disorder 7. Severe withdrawal that cannot be handled at a lower level of care (continued vomiting, continued diarrhea, abnormal vital signs) requiring intravenous medication and/or fluids 8. Admission ROS S - HPI Chief Complaint: I am here to detox from alcohol. Allergies/Adverse Reactions: Allergies Allergy/AdvReac Type Severity Reaction Status Date / Time maitake mushroom Allergy Mild Nausea Verified 12/04/18 10:37 strawberry [[place]] Allergy Mild Rash Verified 12/04/18 10:37 No Known Drug Allergies Allergy Verified 12/04/18 10:37 mushrooms Allergy Mild Rash Uncoded 12/04/18 10:37 History of Present Illness: pt is a 53yrold male with a long history of alcohol dependence seeking detox for treatment. pt states he walked in to [facility] for librium, he states he was feeling withdrawals from the alcohol. Pt was referred to us for continued detox/treatment. Pt has h/o PVD. Pt has a chronic ulcer measures are 10cm x 5cm (L&W) x .05cm in depth to right lower leg. Ulcer appears beefy red no odor no purulent drainage noted. pt states he is being follow by vascular doctors at [facility] and the plan is to maintain with a wet to dry dressing q daily. pt has been compliant with wound care. Exam Limitations: No Limitations - Ebola screening Have you traveled outside of the country in the last 21 days: No (N) Have you had contact with anyone from an Ebola affected area: No Have you been sick,other than usual withdrawal symptoms: No Do you have a fever: No - Review of Systems Constitutional: Chills, Night Sweats EENT: reports: Tearing, Nose Congestion Respiratory: reports: No Symptoms reported Cardiac: reports: Syncope GI: reports: Poor Appetite, Poor Fluid Intake : reports: No Symptoms Reported Musculoskeletal: reports: No Symptoms Reported Integumentary: reports: Other (chronic PVD ulcer to right lower leg) Neuro: reports: Headache, Tingling, Tremors Endocrine: reports: Excessive Sweating, Flushing, Intolerance to Cold, Intolerance to Heat Hematology: reports: Anemia (not on medication at this time.) Psychiatric: reports: Judgement Intact, Mood/Affect Appropiate, Orientated x3, Agitated, Anxious Other Systems: Reviewed and Negative Patient History - Patient Medical History Hx Anemia: Yes Hx Asthma: No Hx Chronic Obstructive Pulmonary Disease (COPD): No Hx Cancer: No Hx Cardiac Disorders: No Hx Congestive Heart Failure: No Hx Hypertension: No Hx Hypercholesterolemia: No Hx Pacemaker: No HX Cerebrovascular Accident: No Hx Seizures: No Hx Dementia: No Hx Diabetes: No Hx Gastrointestinal Disorders: No Hx Liver Disease: No Hx Genitourinary Disorders: No Hx Sexually Transmitted Disorders: No Hx Renal Disease (ESRD): No Hx Thyroid Disease: No Hx Human Immunodeficiency Virus (HIV): No (last 2018 negative) Hx Hepatitis C: No (negative) Hx Depression: No Hx Suicide Attempt: No Hx Bipolar Disorder: No Hx Schizophrenia: No - Patient Surgical History Past Surgical History: No Hx Neurologic Surgery: No Hx Cataract Extraction: No Hx Cardiac Surgery: No Hx Lung Surgery: No Hx Breast Surgery: No Hx Breast Biopsy: No Hx Abdominal Surgery: No Hx Appendectomy: No Hx Cholecystectomy: No Hx Genitourinary Surgery: No Hx Section: No Hx Orthopedic Surgery: No Anesthesia Reaction: No - PPD History Previous Implant?: Yes Documented Results: Negative w/o proof PPD to be Administered?: Yes - Reproductive History Patient is a Female of Child Bearing Age (11 -55 yrs old): No - Smoking Cessation Smoking history: Current every day smoker Have you smoked in the past 12 months: Yes Aproximately how many cigarettes per day: 10 Cigars Per Day: 0 Hx Chewing Tobacco Use: No Initiated information on smoking cessation: Yes 'Breaking Loose' booklet given: 12/04/18 - Substance & Tx. History Hx Alcohol Use: Yes Hx Substance Use: No Substance Use Type: Alcohol Hx Substance Use Treatment: Yes (last detox [facility] 2019) - Substances abused Alcohol Substance route: Oral Frequency: Daily Amount used: VODKA-3PTS Age of first use: 18 Date of last use: 12/03/18 Family Disease History - Family Disease History Family Disease History: Diabetes: Mother (), Heart Disease: Father ( ), Sister (one - living - HTN), Other: Brother (two - little contact), Sister Admission Physical Exam S - Vital Signs Vital Signs: Vital Signs - 24 hr 12/04/18 10:33 Temperature 97.4 F L Pulse Rate 86 Respiratory 20 Rate Blood Pressure 141/77 - Physical General Appearance: Yes: Appropriately Dressed, Moderate Distress, Obese, Tremorous, Irritable, Sweating, Anxious HEENTM: Yes: Hearing grossly Normal, Normal Voice, Nasal Congestion, Rhinorrhea (pt states was caught in the rain and now has a head cold) Respiratory: Yes: Lungs Clear, Normal Breath Sounds, No Respiratory Distress Neck: Yes: No masses,lesions,Nodules Breast: Yes: Within Normal Limits Cardiology: Yes: Regular Rhythm, Regular Rate, S1, S2 Abdominal: Yes: Normal Bowel Sounds, Non Tender, Soft Genitourinary: Yes: Within Normal Limits Back: Yes: Normal Inspection Musculoskeletal: Yes: full range of Motion Extremities: Yes: Normal Capillary Refill, Normal Inspection, Non-Tender, Tremors Neurological: Yes: Fully Oriented, Alert, Normal Response Integumentary: Yes: Normal Color, Dry Lymphatic: Yes: Within Normal Limits - Diagnostic (1) Alcohol dependence with uncomplicated withdrawal Current Visit: Yes Status: Chronic (2) Nicotine dependence Current Visit: Yes Status: Chronic Qualifiers: Nicotine product type: cigarettes Substance use status: uncomplicated Qualified Code(s): F17.210 - Nicotine dependence, cigarettes, uncomplicated (3) Depression (emotion) Current Visit: No Status: Chronic Qualifiers: Depression Type: dysthymia Qualified Code(s): F34.1 - Dysthymic disorder (4) Edema of both legs Current Visit: Yes Status: Chronic (5) PVD (peripheral vascular disease) Current Visit: Yes Status: Chronic (6) Stasis leg ulcer Current Visit: Yes Status: Chronic Qualifiers: Laterality: right Qualified Code(s): I83.019 - Varicose veins of right lower extremity with ulcer of unspecified site; L97.919 - Non-pressure chronic ulcer of unspecified part of right lower leg with unspecified severity (7) Ulcer of right leg Current Visit: Yes Status: Chronic Qualifiers: Non-pressure ulcer stage: with fat layer exposed Qualified Code(s): L97.912 - Non-pressure chronic ulcer of unspecified part of right lower leg with fat layer exposed (8) Substance induced mood disorder Current Visit: No Status: Suspected Cleared for Admission S - Detox or Rehab [facility] Level of Care: Medically Managed Detox Regimen/Protocol: Librium Breathalyzer - Breathalyzer Breathalyzer: 0.112 Urine Drug Screen - Test Device Lot number: [id number] Expiration date: 08/30/20 - Control Is test valid?: Yes - Results Drug screen NEGATIVE: No Urine drug screen results: BZO-Benzodiazepines Inpatient Rehab Admission - Rehab Decision to Admit Inpatient rehab admission?: No
[2018-12-04] MEDS ORDERED: chlordiazePOXIDE HCL 25 MG CAPSULE PO ONE (12:53)
[2018-12-04] MEDS ORDERED: MENTHOL/PHENOL 1 EACH UD MM PRN (12:53)
[2018-12-04] MEDS ORDERED: MAGNESIUM CITRATE 300 ML BOTTLE PO PRN (12:53)
[2018-12-04] MEDS ORDERED: MELATONIN 5 MG TABLETS PO PRN (12:53)
[2018-12-04] MEDS ORDERED: ONDANSETRON *ODT* 4 MG TABLET SL PRN (12:53)
[2018-12-04] MEDS ORDERED: MAGNESIUM HYDROX 2400MG/30ML ORAL SUSPENSION 30 ML CUP PO PRN (12:53)
[2018-12-04] MEDS ORDERED: chlordiazePOXIDE HCL 25 MG CAPSULE PO PRN (12:53)
[2018-12-04] MEDS ORDERED: METHOCARBAMOL 500 MG TABLET PO PRN (12:53)
[2018-12-04] MEDS ORDERED: hydrOXYzine PAMOATE 25 MG CAPSULE (FP) PO PRN (12:53)
[2018-12-04] MEDS ORDERED: BISMUTH SUBSALICYLATE 262 MG/15 ML BTL PO PRN (12:53)
[2018-12-04] MEDS ORDERED: MAG HYDROX/AL HYDROX/SIMETH 30 ML UNIT-DOSE CUP PO PRN (12:53)
[2018-12-04] MEDS ORDERED: IBUPROFEN 400 MG TABLET (FP) PO PRN (12:53)
[2018-12-04] MEDS ORDERED: ACETAMINOPHEN 325 MG TABLET (FP) PO PRN ×2 (12:53)
--- NOTE | 2018-12-04 13:44 | CONSULT ---
[facility] Psychiatric Consult - Data Date of interview: 12/04/18 Admission source: [facility] Identifying data: Patient is approached at bedside for the requested psychiatric evaluation. Mr Cuevas declines. " I don't need psychiatrists ". Nursing staff is made aware.
--- NOTE | 2018-12-04 15:17 | EKG ---
Test Reason : Blood Pressure : / mmHG Vent. Rate : 085 BPM Atrial Rate : 085 BPM P-R Int : 156 ms QRS Dur : 084 ms QT Int : 376 ms P-R-T Axes : 054 -26 -04 degrees QTc Int : 447 ms NORMAL SINUS RHYTHM NORMAL ECG WHEN COMPARED WITH ECG OF 25-NOV-2017 16:19, NO SIGNIFICANT CHANGE WAS FOUND Confirmed by MD Carmichael Edward ([id number]) on 12/04/2018 3:17:04 PM Referred By: Confirmed By:Ignacio Carmichael MD
[2018-12-04 18:25] LABS: HEMATOCRIT 37.7 % (35.4-49); HEMOGLOBIN 12.2 GM/dL (11.7-16.9); MCHC 32.3 g/dl (32.0-35.9); MEAN CELL VOLUME 99.3 fl (80-96); MEAN PLT VOLUME 8.1 fl (7.5-11.1); PLATELET COUNT 148 K/MM3 (134-434); RDW 17.5 % (11.9-15.9); WHITE BLOOD COUNT 3.6 K/mm3 (4.0-10.0)
[2018-12-04 18:54] LABS: ALBUMIN 3.7 g/dl (3.4-5.0); BILIRUBIN,TOTAL 0.2 mg/dL (0.2-1); CALCIUM 8.7 mg/dL (8.5-10.1); CREATININE 1.5 mg/dL (0.55-1.3); POTASSIUM 3.9 mmol/L (3.5-5.1); TOT PROT 7.6 g/dl (6.4-8.2)
[2018-12-04] MEDS: THIAMINE HCL 100 MG TABLET (FP) PO SCH (21:50)
[2018-12-04] MEDS: APIXABAN 5 MG TABLET PO SCH (21:50)
[2018-12-04] MEDS: chlordiazePOXIDE HCL 25 MG CAPSULE PO SCH (22:00)
[2018-12-05] MEDS: chlordiazePOXIDE HCL 25 MG CAPSULE PO SCH ×4 (06:14→23:09)
--- NOTE | 2018-12-05 10:22 | PN ---
S CIWA - CIWA Score Nausea/Vomitin-Mild Nausea/No Vomiting Muscle Tremors: 3 Anxiety: 3 Agitation: 3 Paroxysmal Sweats: 1-Minimal Palms Moist Orientation: 1-Uncertain about Date Tacttile Disturbances: 1-Very Mild Itch/Numbness Auditory Disturbances: 0-None Visual Disturbances: 0-None Headache: 0-None Present CIWA-Ar Total Score: 13 BHS Progress Note (SOAP) Subjective: tremor doing well with librium detox regimen discuss negative consequences of alcohol misuse Objective: 12/05/18 10:20 Vital Signs Temperature 97.0 F L 12/05/18 09:35 Pulse Rate 73 12/05/18 09:35 Respiratory Rate 18 12/05/18 09:35 Blood Pressure 147/84 12/05/18 09:35 O2 Sat by Pulse Oximetry (%) Laboratory Last Values WBC 3.6 K/mm3 (4.0-10.0) L 12/04/18 13:10 RBC 3.80 M/mm3 (4.00-5.60) L 12/04/18 13:10 Hgb 12.2 GM/dL (11.7-16.9) 12/04/18 13:10 Hct 37.7 % (35.4-49) 12/04/18 13:10 MCV 99.3 fl (80-96) H 12/04/18 13:10 MCH 32.0 pg (25.7-33.7) 12/04/18 13:10 MCHC 32.3 g/dl (32.0-35.9) 12/04/18 13:10 RDW 17.5 % (11.9-15.9) H 12/04/18 13:10 Plt Count 148 K/MM3 (134-434) D 12/04/18 13:10 MPV 8.1 fl (7.5-11.1) 12/04/18 13:10 Sodium 141 mmol/L (136-145) 12/04/18 13:10 Potassium 3.9 mmol/L (3.5-5.1) 12/04/18 13:10 Chloride 106 mmol/L (98-107) 12/04/18 13:10 Carbon Dioxide 26 mmol/L (21-32) 12/04/18 13:10 Anion Gap 9 MMOL/L (8-16) 12/04/18 13:10 BUN 20 mg/dL (7-18) H 12/04/18 13:10 Creatinine 1.5 mg/dL (0.55-1.3) H 12/04/18 13:10 Est GFR (CKD-EPI)AfAm 60.73 12/04/18 13:10 Est GFR (CKD-EPI)NonAf 52.40 12/04/18 13:10 Random Glucose 114 mg/dL (74-106) H 12/04/18 13:10 Calcium 8.7 mg/dL (8.5-10.1) 12/04/18 13:10 Total Bilirubin 0.2 mg/dL (0.2-1) 12/04/18 13:10 AST 51 U/L (15-37) H 12/04/18 13:10 ALT 37 U/L (13-61) 12/04/18 13:10 Alkaline Phosphatase 80 U/L (45-117) 12/04/18 13:10 Total Protein 7.6 g/dl (6.4-8.2) 12/04/18 13:10 Albumin 3.7 g/dl (3.4-5.0) 12/04/18 13:10 RPR Titer Nonreactive (NONREACTIVE) 12/04/18 13:10 lab noted Assessment: 12/05/18 10:21 alcohol withdrawal sx Plan: continue detox
[2018-12-05] MEDS: PRENATAL VITAMINS W/ FOLIC ACID TABLET (FP) PO SCH (10:27)
[2018-12-05] MEDS: APIXABAN 5 MG TABLET PO SCH ×2 (10:27→23:09)
[2018-12-05] MEDS: THIAMINE HCL 100 MG TABLET (FP) PO SCH (23:09)
[2018-12-06] MEDS: chlordiazePOXIDE HCL 25 MG CAPSULE PO SCH ×3 (06:38→17:54)
[2018-12-06] MEDS: APIXABAN 5 MG TABLET PO SCH ×2 (10:35→22:29)
[2018-12-06] MEDS: PRENATAL VITAMINS W/ FOLIC ACID TABLET (FP) PO SCH (10:36)
--- NOTE | 2018-12-06 12:57 | PN ---
S CIWA - CIWA Score Nausea/Vomitin Muscle Tremors: 3 Anxiety: 2 Agitation: 2 Paroxysmal Sweats: 1-Minimal Palms Moist Orientation: 0-Oriented Tacttile Disturbances: 1-Very Mild Itch/Numbness Auditory Disturbances: 1-Very Mild Visual Disturbances: 0-None Headache: 2-Mild CIWA-Ar Total Score: 14 BHS Progress Note (SOAP) Subjective: alert,irritable,anxious,interrupted sleep,tremor Objective: 12/06/18 12:56 Vital Signs Temperature 98.6 F 12/06/18 09:17 Pulse Rate 74 12/06/18 09:17 Respiratory Rate 20 12/06/18 09:17 Blood Pressure 173/94 H 12/06/18 09:17 O2 Sat by Pulse Oximetry (%) Laboratory Last Values WBC 3.6 K/mm3 (4.0-10.0) L 12/04/18 13:10 RBC 3.80 M/mm3 (4.00-5.60) L 12/04/18 13:10 Hgb 12.2 GM/dL (11.7-16.9) 12/04/18 13:10 Hct 37.7 % (35.4-49) 12/04/18 13:10 MCV 99.3 fl (80-96) H 12/04/18 13:10 MCH 32.0 pg (25.7-33.7) 12/04/18 13:10 MCHC 32.3 g/dl (32.0-35.9) 12/04/18 13:10 RDW 17.5 % (11.9-15.9) H 12/04/18 13:10 Plt Count 148 K/MM3 (134-434) D 12/04/18 13:10 MPV 8.1 fl (7.5-11.1) 12/04/18 13:10 Sodium 141 mmol/L (136-145) 12/04/18 13:10 Potassium 3.9 mmol/L (3.5-5.1) 12/04/18 13:10 Chloride 106 mmol/L (98-107) 12/04/18 13:10 Carbon Dioxide 26 mmol/L (21-32) 12/04/18 13:10 Anion Gap 9 MMOL/L (8-16) 12/04/18 13:10 BUN 20 mg/dL (7-18) H 12/04/18 13:10 Creatinine 1.5 mg/dL (0.55-1.3) H 12/04/18 13:10 Est GFR (CKD-EPI)AfAm 60.73 12/04/18 13:10 Est GFR (CKD-EPI)NonAf 52.40 12/04/18 13:10 Random Glucose 114 mg/dL (74-106) H 12/04/18 13:10 Calcium 8.7 mg/dL (8.5-10.1) 12/04/18 13:10 Total Bilirubin 0.2 mg/dL (0.2-1) 12/04/18 13:10 AST 51 U/L (15-37) H 12/04/18 13:10 ALT 37 U/L (13-61) 12/04/18 13:10 Alkaline Phosphatase 80 U/L (45-117) 12/04/18 13:10 Total Protein 7.6 g/dl (6.4-8.2) 12/04/18 13:10 Albumin 3.7 g/dl (3.4-5.0) 12/04/18 13:10 RPR Titer Nonreactive (NONREACTIVE) 12/04/18 13:10 Assessment: 12/06/18 12:57 withdrawal symptom Plan: continue detox
[2018-12-06] MEDS: THIAMINE HCL 100 MG TABLET (FP) PO SCH (22:28)
[2018-12-06] MEDS: chlordiazePOXIDE HCL 10 MG CAPSULE PO SCH (22:29)
[2018-12-07] MEDS: chlordiazePOXIDE HCL 10 MG CAPSULE PO SCH ×3 (06:05→17:32)
[2018-12-07] MEDS: PRENATAL VITAMINS W/ FOLIC ACID TABLET (FP) PO SCH (10:19)
[2018-12-07] MEDS: APIXABAN 5 MG TABLET PO SCH ×2 (10:19→22:11)
--- NOTE | 2018-12-07 11:49 | PN ---
[facility] CIWA - CIWA Score Nausea/Vomitin-Mild Nausea/No Vomiting Muscle Tremors: 1-None Visible, but [place] Anxiety: 1-Mildly Anxious Agitation: 1-Slight > Activity Paroxysmal Sweats: No Perspiration Orientation: 0-Oriented Tacttile Disturbances: 1-Very Mild Itch/Numbness Auditory Disturbances: 1-Very Mild Visual Disturbances: 0-None Headache: 1-Very Mild CIWA-Ar Total Score: 7 S Progress Note (SOAP) Subjective: alert,irritable,,interrupted sleep,anxious Objective: 12/07/18 11:48 Vital Signs Temperature 98.0 F 12/07/18 06:38 Pulse Rate 71 12/07/18 06:38 Respiratory Rate 18 12/07/18 06:38 Blood Pressure 142/89 12/07/18 06:38 O2 Sat by Pulse Oximetry (%) Assessment: 12/07/18 11:48 withdrawal symptom Plan: continue detox,discharge in am
[2018-12-07] MEDS: THIAMINE HCL 100 MG TABLET (FP) PO SCH (22:11)
[2018-12-07] MEDS ORDERED: chlordiazePOXIDE HCL 10 MG CAPSULE PO SCH (23:00)
[2018-12-08 09:25] VITALS: BP 171/98; PULSE 84; TEMP 98.1
[2018-12-08] MEDS: PRENATAL VITAMINS W/ FOLIC ACID TABLET (FP) PO SCH (09:57)
[2018-12-08] MEDS: APIXABAN 5 MG TABLET PO SCH (09:57)
--- NOTE | 2018-12-08 10:05 | PN ---
S CIWA - CIWA Score Nausea/Vomitin-No Nausea/No Vomiting Muscle Tremors: None Anxiety: 1-Mildly Anxious Agitation: 1-Slight > Activity Paroxysmal Sweats: 1-Minimal Palms Moist Orientation: 0-Oriented Tacttile Disturbances: 0-None Auditory Disturbances: 0-None Visual Disturbances: 0-None Headache: 1-Very Mild CIWA-Ar Total Score: 4 BHS Progress Note (SOAP) Subjective: c/o mild anxiety and irritability Objective: 12/08/18 10:03 Vital Signs 12/08/18 12/08/18 03:30 09:24 Temperature 98.1 F Pulse Rate 84 Respiratory 18 18 Rate Blood Pressure 171/98 H Lab Results WBC 3.6 K/mm3 (4.0-10.0) L 12/04/18 13:10 RBC 3.80 M/mm3 (4.00-5.60) L 12/04/18 13:10 Hgb 12.2 GM/dL (11.7-16.9) 12/04/18 13:10 Hct 37.7 % (35.4-49) 12/04/18 13:10 MCV 99.3 fl (80-96) H 12/04/18 13:10 MCHC 32.3 g/dl (32.0-35.9) 12/04/18 13:10 RDW 17.5 % (11.9-15.9) H 12/04/18 13:10 Plt Count 148 K/MM3 (134-434) D 12/04/18 13:10 Sodium 141 mmol/L (136-145) 12/04/18 13:10 Potassium 3.9 mmol/L (3.5-5.1) 12/04/18 13:10 Chloride 106 mmol/L (98-107) 12/04/18 13:10 Carbon Dioxide 26 mmol/L (21-32) 12/04/18 13:10 Anion Gap 9 MMOL/L (8-16) 12/04/18 13:10 BUN 20 mg/dL (7-18) H 12/04/18 13:10 Creatinine 1.5 mg/dL (0.55-1.3) H 12/04/18 13:10 Random Glucose 114 mg/dL (74-106) H 12/04/18 13:10 Calcium 8.7 mg/dL (8.5-10.1) 12/04/18 13:10 Labs noted. Assessment: 12/08/18 10:04 AOX3, in no respiratory distress, full rom, ambulating in the unit. mild withdrawal symptoms. Plan: Awaiting rehab placement today.
--- NOTE | 2018-12-08 15:41 | DS ---
[facility] Detox Discharge Summary Admission Date: 12/04/18 Discharge Date: 12/08/18 - History Present History: Alcohol Dependence Additional Comments: Pt is medically cleared and discharged today. Pt has completed his detox protocol. As per counselor's notes, "Patient was reminded that his weekend discharge does not guarantee him a weekend rehab bed. Patient was inform that his referral package has been sent to the onsite [facility] Rehab intake department. Patient was also provided with an alternate option for treatment services if needed at the [address] located at [address] [place] [address] ". Pt is discharged home and is reminded to follow-up with his PMD and also to follw-up with [facility] outpatient program. pt is alert and oriented x3 and in no acute respiratory distress. Pertinent Past History: H/O alcohol use disorder. - Physical Exam Results Vital Signs: Vital Signs Temperature 98.1 F 12/08/18 09:24 Pulse Rate 84 12/08/18 09:24 Respiratory Rate 18 12/08/18 09:24 Blood Pressure 171/98 H 12/08/18 09:24 O2 Sat by Pulse Oximetry (%) Lab Results WBC 3.6 K/mm3 (4.0-10.0) L 12/04/18 13:10 RBC 3.80 M/mm3 (4.00-5.60) L 12/04/18 13:10 Hgb 12.2 GM/dL (11.7-16.9) 12/04/18 13:10 Hct 37.7 % (35.4-49) 12/04/18 13:10 MCV 99.3 fl (80-96) H 12/04/18 13:10 MCHC 32.3 g/dl (32.0-35.9) 12/04/18 13:10 RDW 17.5 % (11.9-15.9) H 12/04/18 13:10 Plt Count 148 K/MM3 (134-434) D 12/04/18 13:10 Sodium 141 mmol/L (136-145) 12/04/18 13:10 Potassium 3.9 mmol/L (3.5-5.1) 12/04/18 13:10 Chloride 106 mmol/L (98-107) 12/04/18 13:10 Carbon Dioxide 26 mmol/L (21-32) 12/04/18 13:10 Anion Gap 9 MMOL/L (8-16) 12/04/18 13:10 BUN 20 mg/dL (7-18) H 12/04/18 13:10 Creatinine 1.5 mg/dL (0.55-1.3) H 12/04/18 13:10 Random Glucose 114 mg/dL (74-106) H 12/04/18 13:10 Calcium 8.7 mg/dL (8.5-10.1) 12/04/18 13:10 Labs noted. Pertinent Admission Physical Exam Findings: withdrawal symptoms. - Treatment Hospital Course: Detox Protocol Followed, Detoxed Safely, Responded well, Discharged Condition Good - Medication Discharge Medications: Ambulatory Orders Apixaban [Eliquis] 10 mg PO BID 15 Days #30 tablet 06/04/18 - Diagnosis (1) Alcohol dependence with uncomplicated withdrawal Status: Chronic (2) Edema of both legs Status: Chronic (3) Nicotine dependence Status: Chronic Qualifiers: Nicotine product type: cigarettes Substance use status: uncomplicated Qualified Code(s): F17.210 - Nicotine dependence, cigarettes, uncomplicated (4) PVD (peripheral vascular disease) Status: Chronic (5) Stasis leg ulcer Status: Chronic Qualifiers: Laterality: right Qualified Code(s): I83.019 - Varicose veins of right lower extremity with ulcer of unspecified site; L97.919 - Non-pressure chronic ulcer of unspecified part of right lower leg with unspecified severity (6) Ulcer of right leg Status: Chronic Qualifiers: Non-pressure ulcer stage: with fat layer exposed Qualified Code(s): L97.912 - Non-pressure chronic ulcer of unspecified part of right lower leg with fat layer exposed - AMA Did Patient Leave Against Medical Advice: No
== END 2018-12-08 09:55 | disposition home or self-care (01) | DRG 775 ==
LOC: YASAS 10:03 → Y3N 13:00
PROVIDERS: ADMIT Surgery; ATTEND Surgery
PROC: HZ2ZZZZ Detoxification Services for Substance Abuse Treatment (ICD-10-PCS; principal; 2018-12-04)
DX: F10.230 Alcohol dependence with withdrawal, uncomplicated (principal); F17.210 Nicotine dependence, cigarettes, uncomplicated; F19.24 Other psychoactive substance dependence with psychoactive substance-induced mood disorder; F34.1 Dysthymic disorder; I83.019 Varicose veins of right lower extremity with ulcer of unspecified site; L97.912 Non-pressure chronic ulcer of unspecified part of right lower leg with fat layer exposed; I73.89 Other specified peripheral vascular diseases; R60.0 Localized edema
CPT/HCPCS: 36415; 80053; 85027; 86593; 93005; 93010

== ENCOUNTER 2019-07-27 12:13 | Inpatient (IN) | payer OTHER ==
[2019-07-27 12:42] VITALS: BMI 35.6
--- NOTE | 2019-07-27 13:01 | HP ---
CIWA Score Nausea/Vomitin-Mild Nausea/No Vomiting Muscle Tremors: 4-Moderate,w/Arms Extend Anxiety: 4-Mod. Anxious/Guarded Agitation: 2 Paroxysmal Sweats: 2 Orientation: 1-Uncertain about Date Tacttile Disturbances: 0-None Auditory Disturbances: 0-None Visual Disturbances: 0-None Headache: 2-Mild CIWA-Ar Total Score: 16 - Admission Criteria OASAS Guidelines: Admission for Medically Managed Detox: Requires at least one of the followin. CIWA greater than 12 2. Seizures within the past 24 hours 3. Delirium tremens within the past 24 hours 4. Hallucinations within the past 24 hours 5. Acute intervention needed for co occurring medical disorder 6. Acute intervention needed for co occurring psychiatric disorder 7. Severe withdrawal that cannot be handled at a lower level of care (continued vomiting, continued diarrhea, abnormal vital signs) requiring intravenous medication and/or fluids 8. Patient presents the following: CIWA greater than 12 Admission Criteria Met: Admission criteria met Admitting History and Physical - Admission History Source: Patient, Medical Record Limitations to Obtaining History: No Limitations - Past Medical History Cardiovascular: Yes: Other (PVD) Psych: Yes: Depression Dermatology: Yes: Other (RLE vascular ulcer) - Smoking History Smoking history: Current every day smoker Have you smoked in the past 12 months: Yes Aproximately how many cigarettes per day: 10 - Alcohol/Substance Use Hx Alcohol Use: Yes - Social History Usual Living Arrangement: Yes: Alone, Other (lives in custodial) ADL: Support Services (on disability - physical related to leg ulcer) Admission ROS [facility] - HPI Chief Complaint: I need help - I'm tired of drinking - the democrat's over - I'm getting too old for this and I can hardly handle it Allergies/Adverse Reactions: Allergies Allergy/AdvReac Type Severity Reaction Status Date / Time maitake mushroom Allergy Mild Nausea Verified 07/27/19 12:42 strawberry [Norris] Allergy Mild Rash Verified 07/27/19 12:42 No Known Drug Allergies Allergy Verified 12/04/18 10:37 mushrooms Allergy Mild Rash Uncoded 12/04/18 10:37 History of Present Illness: 54 yo gentleman here for detox from alcohol - last here 12/04/18 - did not f/u with outpatient rehab and states he relapsed a few weeks later. Denies ever being on MAT such as Vivitrol. Denies seizures but does have black outs. Was in [facility] in May for withdrawal symptoms but he states that they had closed the detox and 'sent me on my way'. He sees [facility] doctors for wound care of his RLE vascular ulcer. Patient lives in a custodial. He is on disability for his leg ulcers. Exam Limitations: No Limitations - Ebola screening Have you traveled outside of the country in the last 21 days: No (N) Have you had contact with anyone from an Ebola affected area: No Do you have a fever: No - Review of Systems Constitutional: Loss of Appetite, Malaise, Weakness EENT: reports: Blurred Vision Respiratory: reports: No Symptoms reported Cardiac: reports: No Symptoms Reported GI: reports: Nausea, Poor Appetite, Abdominal cramping : reports: Frequency Musculoskeletal: reports: No Symptoms Reported Integumentary: reports: Dryness, Other (right leg ulcer) Neuro: reports: Headache, Tremors Endocrine: reports: No Symptoms Reported Hematology: reports: No Symptoms Reported Psychiatric: reports: Judgement Intact, Mood/Affect Appropiate, Anxious Other Systems: Reviewed and Negative Patient History - Patient Medical History Hx Anemia: Yes Hx Asthma: No Hx Chronic Obstructive Pulmonary Disease (COPD): No Hx Cancer: No Hx Cardiac Disorders: No Hx Congestive Heart Failure: No Hx Hypertension: No Hx Hypercholesterolemia: No Hx Pacemaker: No HX Cerebrovascular Accident: No Hx Seizures: No Hx Dementia: No Hx Diabetes: No Hx Gastrointestinal Disorders: No Hx Liver Disease: No Hx Genitourinary Disorders: No Hx Sexually Transmitted Disorders: No Hx Renal Disease (ESRD): No Hx Thyroid Disease: No Hx Human Immunodeficiency Virus (HIV): No (last 2018 negative) Hx Hepatitis C: No (negative) Hx Depression: Yes (no meds, hospitalized 2019) Hx Suicide Attempt: No (denies) Hx Bipolar Disorder: No Hx Schizophrenia: No Other Medical History: right lower expremity vascular ulcer - Patient Surgical History Past Surgical History: No Hx Neurologic Surgery: No Hx Cataract Extraction: No Hx Cardiac Surgery: No Hx Lung Surgery: No Hx Breast Surgery: No Hx Breast Biopsy: No Hx Abdominal Surgery: No Hx Appendectomy: No Hx Cholecystectomy: No Hx Genitourinary Surgery: No Hx Section: No Hx Orthopedic Surgery: Yes (bone biopsy 2019 - negative for osteomyelitis) Anesthesia Reaction: No - PPD History Previous Implant?: Yes Documented Results: Negative w/proof Implanted On Prior [facility] Admission?: Yes Date: 12/06/18 Results: 0 mm PPD to be Administered?: No - Reproductive History Patient is a Female of Child Bearing Age (11 -55 yrs old): No - Smoking Cessation Smoking history: Current every day smoker Have you smoked in the past 12 months: Yes Aproximately how many cigarettes per day: 10 Cigars Per Day: 0 Hx Chewing Tobacco Use: No Initiated information on smoking cessation: Yes 'Breaking Loose' booklet given: 07/27/19 (give on floor) - Substance & Tx. History Hx Alcohol Use: Yes Hx Substance Use: No Substance Use Type: Alcohol Hx Substance Use Treatment: Yes (detox , rehab) - Substances abused Alcohol Substance route: Oral Frequency: Daily Amount used: 3 pints of vodka Age of first use: 18 Date of last use: 07/26/19 Admission Physical Exam [facility] - Vital Signs Vital Signs: Vital Signs - 24 hr 07/27/19 12:40 Temperature 99.5 F Pulse Rate 118 H Respiratory 20 Rate Blood Pressure 147/87 - Physical General Appearance: Yes: Nourished, Appropriately Dressed, Moderate Distress, Obese, Tremorous, Anxious HEENTM: Yes: EOMI, Hearing grossly Normal, Normocephalic, Normal Voice, Pharynx Normal Respiratory: Yes: Normal Breath Sounds, No Respiratory Distress Neck: Yes: No masses,lesions,Nodules Breast: Yes: Breast Exam Deferred Cardiology: Yes: Regular Rhythm, Tachycardia Abdominal: Yes: Soft, Protuberent Genitourinary: Yes: Frequency Back: Yes: Normal Inspection Musculoskeletal: Yes: full range of Motion Extremities: Yes: Pedal Edema, Other (hyperpigmentation both legs - 1+ edema both lower extremities) Neurological: Yes: Alert, Normal Mood/Affect, Normal Response Integumentary: Yes: Normal Color, Warm, Other (RLE with hyperpigmentation and large shallow ulcer approximately 9cm x 4cm - healthy granulation tissue with serous drainage - surrounding skin is dry, thickenened, alligator type) Lymphatic: Yes: Within Normal Limits - Diagnostic (1) Alcohol dependence with uncomplicated withdrawal Current Visit: Yes Status: Chronic (2) Edema of both legs Current Visit: Yes Status: Chronic (3) Nicotine dependence Current Visit: Yes Status: Chronic Qualifiers: Nicotine product type: cigarettes Substance use status: uncomplicated Qualified Code(s): F17.210 - Nicotine dependence, cigarettes, uncomplicated (4) PVD (peripheral vascular disease) Current Visit: Yes Status: Chronic (5) Stasis leg ulcer Current Visit: Yes Status: Chronic Qualifiers: Laterality: right Qualified Code(s): I83.019 - Varicose veins of right lower extremity with ulcer of unspecified site; L97.919 - Non-pressure chronic ulcer of unspecified part of right lower leg with unspecified severity Cleared for Admission S - Detox or Rehab [facility] Level of Care: Medically Managed Detox Regimen/Protocol: Librium Breathalyzer - Breathalyzer Breathalyzer: 0 Urine Drug Screen - Test Device Lot number: [id number] Expiration date: 08/30/20 - Control Is test valid?: Yes - Results Drug screen NEGATIVE: No Urine drug screen results: BZO-Benzodiazepines Inpatient Rehab Admission - Rehab Decision to Admit Inpatient rehab admission?: No
[2019-07-27] MEDS ORDERED: chlordiazePOXIDE HCL 25 MG CAPSULE PO PRN (13:15)
[2019-07-27] MEDS ORDERED: MAG HYDROX/AL HYDROX/SIMETH 30 ML UNIT-DOSE CUP PO PRN (13:15)
[2019-07-27] MEDS ORDERED: MAGNESIUM HYDROX 2400MG/30ML ORAL SUSPENSION 30 ML CUP PO PRN (13:15)
[2019-07-27] MEDS ORDERED: BISMUTH SUBSALICYLATE 524 MG/30 ML UD PO PRN (13:15)
[2019-07-27] MEDS ORDERED: MELATONIN 5 MG TABLETS PO PRN (13:15)
[2019-07-27] MEDS ORDERED: MENTHOL/PHENOL 1 EACH UD MM PRN (13:15)
[2019-07-27] MEDS ORDERED: NICOTINE POLACRILEX 4 MG GUM BUC PRN (13:15)
[2019-07-27] MEDS ORDERED: METHOCARBAMOL 500 MG TABLET PO PRN (13:15)
[2019-07-27] MEDS ORDERED: MAGNESIUM CITRATE 300 ML BOTTLE PO PRN (13:15)
[2019-07-27] MEDS ORDERED: ACETAMINOPHEN 325 MG TABLET (FP) PO PRN ×2 (13:15)
[2019-07-27] MEDS ORDERED: hydrOXYzine PAMOATE 25 MG CAPSULE (FP) PO PRN (13:21)
[2019-07-27] MEDS ORDERED: APIXABAN 5 MG TABLET PO SCH (13:30)
[2019-07-27] MEDS ORDERED: chlordiazePOXIDE HCL 25 MG CAPSULE PO ONE (13:45)
[2019-07-27] MEDS: PETROLATUM, WHITE 30 GM TUBE TP SCH (15:01)
[2019-07-27] MEDS: chlordiazePOXIDE HCL 25 MG CAPSULE PO SCH ×2 (17:26→22:43)
[2019-07-27] MEDS: APIXABAN 5 MG TABLET PO SCH (22:43)
[2019-07-27] MEDS: THIAMINE HCL 100 MG TABLET (FP) PO SCH (22:43)
[2019-07-28] MEDS: chlordiazePOXIDE HCL 25 MG CAPSULE PO SCH ×4 (05:34→22:35)
[2019-07-28] MEDS: APIXABAN 5 MG TABLET PO SCH ×2 (10:14→22:35)
[2019-07-28] MEDS: PETROLATUM, WHITE 30 GM TUBE TP SCH (10:14)
[2019-07-28] MEDS: PRENATAL VITAMINS W/ FOLIC ACID TABLET (FP) PO SCH (10:14)
[2019-07-28 11:07] LABS: HEMATOCRIT 34.7 % (35.4-49); HEMOGLOBIN 11.3 GM/dL (11.7-16.9); MCHC 32.6 g/dl (32.0-35.9); MEAN CELL VOLUME 95.1 fl (80-96); PLATELET COUNT 273 K/MM3 (134-434); RBC 3.65 M/mm3 (4.00-5.60); RDW 17.8 % (11.9-15.9); WHITE BLOOD COUNT 5.1 K/mm3 (4.0-10.0)
[2019-07-28 11:19] LABS: ALBUMIN 3.2 g/dl (3.4-5.0); BLOOD UREA NITROGEN 18.8 mg/dL (7-18); CALCIUM 8.6 mg/dL (8.5-10.1); CREATININE 1.4 mg/dL (0.55-1.3); POTASSIUM 4.1 mmol/L (3.5-5.1); TOT PROT 6.7 g/dl (6.4-8.2)
--- NOTE | 2019-07-28 11:36 | PN ---
S CIWA - CIWA Score Nausea/Vomitin-Mild Nausea/No Vomiting Muscle Tremors: 3 Anxiety: 3 Agitation: 2 Paroxysmal Sweats: 2 Orientation: 0-Oriented Tacttile Disturbances: 0-None Auditory Disturbances: 0-None Visual Disturbances: 1-Very Mild Sensitivity Headache: 1-Very Mild CIWA-Ar Total Score: 13 S Progress Note (SOAP) Subjective: 54 years old male admitted on 07/27/19 for alcohol withdrawal sx management treating with librium detox regimen ambulating with cane steady gait reports chronic right and left shoulders pain and right wrist 4/10 pain lidocain patch distribution to three areas Objective: 07/28/19 11:35 Vital Signs Temperature 97.7 F 07/28/19 09:38 Pulse Rate 101 H 07/28/19 09:38 Respiratory Rate 20 07/28/19 09:38 Blood Pressure 131/77 07/28/19 09:38 O2 Sat by Pulse Oximetry (%) Laboratory Last Values WBC 5.1 K/mm3 (4.0-10.0) 07/28/19 06:50 RBC 3.65 M/mm3 (4.00-5.60) L 07/28/19 06:50 Hgb 11.3 GM/dL (11.7-16.9) L 07/28/19 06:50 Hct 34.7 % (35.4-49) L 07/28/19 06:50 MCV 95.1 fl (80-96) 07/28/19 06:50 MCH 31.0 pg (25.7-33.7) 07/28/19 06:50 MCHC 32.6 g/dl (32.0-35.9) 07/28/19 06:50 RDW 17.8 % (11.9-15.9) H 07/28/19 06:50 Plt Count 273 K/MM3 (134-434) D 07/28/19 06:50 MPV 9.0 fl (7.5-11.1) D 07/28/19 06:50 Sodium 140 mmol/L (136-145) 07/28/19 06:50 Potassium 4.1 mmol/L (3.5-5.1) 07/28/19 06:50 Chloride 109 mmol/L (98-107) H 07/28/19 06:50 Carbon Dioxide 25 mmol/L (21-32) 07/28/19 06:50 Anion Gap 6 MMOL/L (8-16) L 07/28/19 06:50 BUN 18.8 mg/dL (7-18) H 07/28/19 06:50 Creatinine 1.4 mg/dL (0.55-1.3) H 07/28/19 06:50 Est GFR (CKD-EPI)AfAm 65.55 07/28/19 06:50 Est GFR (CKD-EPI)NonAf 56.56 07/28/19 06:50 Random Glucose 103 mg/dL (74-106) 07/28/19 06:50 Calcium 8.6 mg/dL (8.5-10.1) 07/28/19 06:50 Total Bilirubin 1.0 mg/dL (0.2-1) 07/28/19 06:50 AST 52 U/L (15-37) H 07/28/19 06:50 ALT 48 U/L (13-61) 07/28/19 06:50 Alkaline Phosphatase 89 U/L (45-117) 07/28/19 06:50 Total Protein 6.7 g/dl (6.4-8.2) 07/28/19 06:50 Albumin 3.2 g/dl (3.4-5.0) L 07/28/19 06:50 lab noted Assessment: 07/28/19 11:36 alcohol withdrawal Plan: librium regiment
[2019-07-28] MEDS: LIDOCAINE 5% TOPICAL PATCH TP SCH (13:30)
[2019-07-28] MEDS: THIAMINE HCL 100 MG TABLET (FP) PO SCH (22:35)
[2019-07-28] MEDS: LIDOCAINE PATCH REMOVAL MC SCH (22:36)
[2019-07-29] MEDS: chlordiazePOXIDE HCL 25 MG CAPSULE PO SCH ×4 (05:26→22:46)
[2019-07-29] MEDS: APIXABAN 5 MG TABLET PO SCH ×2 (10:14→22:45)
[2019-07-29] MEDS: PRENATAL VITAMINS W/ FOLIC ACID TABLET (FP) PO SCH (10:14)
[2019-07-29] MEDS: LIDOCAINE 5% TOPICAL PATCH TP SCH (10:15)
[2019-07-29] MEDS: PETROLATUM, WHITE 30 GM TUBE TP SCH (11:18)
--- NOTE | 2019-07-29 12:04 | PN ---
S CIWA - CIWA Score Nausea/Vomitin-No Nausea/No Vomiting Muscle Tremors: 2 Anxiety: 3 Agitation: 0-Normal Activity Paroxysmal Sweats: 2 Orientation: 0-Oriented Tacttile Disturbances: 0-None Auditory Disturbances: 0-None Visual Disturbances: 1-Very Mild Sensitivity Headache: 1-Very Mild CIWA-Ar Total Score: 9 [facility] Progress Note (SOAP) Subjective: 54 years old male admitted on 07/27/19 for alcohol withdrawal sx management treating with librium detox regiment patient insists to change his right ankle would himself refuses to be examined by the content writer at this time Objective: 07/29/19 12:03 Vital Signs Temperature 97.5 F L 07/29/19 09:25 Pulse Rate 98 H 07/29/19 09:25 Respiratory Rate 20 07/29/19 09:25 Blood Pressure 117/82 07/29/19 09:25 O2 Sat by Pulse Oximetry (%) Laboratory Last Values WBC 5.1 K/mm3 (4.0-10.0) 07/28/19 06:50 RBC 3.65 M/mm3 (4.00-5.60) L 07/28/19 06:50 Hgb 11.3 GM/dL (11.7-16.9) L 07/28/19 06:50 Hct 34.7 % (35.4-49) L 07/28/19 06:50 MCV 95.1 fl (80-96) 07/28/19 06:50 MCH 31.0 pg (25.7-33.7) 07/28/19 06:50 MCHC 32.6 g/dl (32.0-35.9) 07/28/19 06:50 RDW 17.8 % (11.9-15.9) H 07/28/19 06:50 Plt Count 273 K/MM3 (134-434) D 07/28/19 06:50 MPV 9.0 fl (7.5-11.1) D 07/28/19 06:50 Sodium 140 mmol/L (136-145) 07/28/19 06:50 Potassium 4.1 mmol/L (3.5-5.1) 07/28/19 06:50 Chloride 109 mmol/L (98-107) H 07/28/19 06:50 Carbon Dioxide 25 mmol/L (21-32) 07/28/19 06:50 Anion Gap 6 MMOL/L (8-16) L 07/28/19 06:50 BUN 18.8 mg/dL (7-18) H 07/28/19 06:50 Creatinine 1.4 mg/dL (0.55-1.3) H 07/28/19 06:50 Est GFR (CKD-EPI)AfAm 65.55 07/28/19 06:50 Est GFR (CKD-EPI)NonAf 56.56 07/28/19 06:50 Random Glucose 103 mg/dL (74-106) 07/28/19 06:50 Calcium 8.6 mg/dL (8.5-10.1) 07/28/19 06:50 Total Bilirubin 1.0 mg/dL (0.2-1) 07/28/19 06:50 AST 52 U/L (15-37) H 07/28/19 06:50 ALT 48 U/L (13-61) 07/28/19 06:50 Alkaline Phosphatase 89 U/L (45-117) 07/28/19 06:50 Total Protein 6.7 g/dl (6.4-8.2) 07/28/19 06:50 Albumin 3.2 g/dl (3.4-5.0) L 07/28/19 06:50 RPR Titer Nonreactive (NONREACTIVE) 07/28/19 06:50 lab noted Assessment: 07/29/19 12:03 alcohol withdrawal Plan: librium regiment
[2019-07-29] MEDS: LIDOCAINE PATCH REMOVAL MC SCH (22:45)
[2019-07-29] MEDS: THIAMINE HCL 100 MG TABLET (FP) PO SCH (22:45)
[2019-07-30] MEDS ORDERED: chlordiazePOXIDE HCL 10 MG CAPSULE PO PRN
[2019-07-30] MEDS: chlordiazePOXIDE HCL 10 MG CAPSULE PO SCH ×4 (06:23→23:02)
[2019-07-30] MEDS: PRENATAL VITAMINS W/ FOLIC ACID TABLET (FP) PO SCH (10:17)
[2019-07-30] MEDS: APIXABAN 5 MG TABLET PO SCH ×2 (10:17→23:02)
[2019-07-30] MEDS: PETROLATUM, WHITE 30 GM TUBE TP SCH (10:19)
[2019-07-30] MEDS: LIDOCAINE 5% TOPICAL PATCH TP SCH (10:19)
--- NOTE | 2019-07-30 11:42 | PN ---
S CIWA - CIWA Score Nausea/Vomitin-No Nausea/No Vomiting Muscle Tremors: 2 Anxiety: 2 Agitation: 2 Paroxysmal Sweats: 1-Minimal Palms Moist Orientation: 0-Oriented Tacttile Disturbances: 0-None Auditory Disturbances: 0-None Visual Disturbances: 1-Very Mild Sensitivity Headache: 0-None Present CIWA-Ar Total Score: 8 S Progress Note (SOAP) Subjective: 54 years old male admitted on 07/27/19 for alcohol withdrawal sx management treating with librium detox regiment right lower inner calf 2 years old ulceration dressing changed patient agrees to return to primary care docketing specialist for follow up Objective: 07/30/19 11:41 Vital Signs Temperature 97.8 F 07/30/19 09:12 Pulse Rate 84 07/30/19 09:12 Respiratory Rate 18 07/30/19 09:12 Blood Pressure 139/90 07/30/19 09:12 O2 Sat by Pulse Oximetry (%) Laboratory Last Values WBC 5.1 K/mm3 (4.0-10.0) 07/28/19 06:50 RBC 3.65 M/mm3 (4.00-5.60) L 07/28/19 06:50 Hgb 11.3 GM/dL (11.7-16.9) L 07/28/19 06:50 Hct 34.7 % (35.4-49) L 07/28/19 06:50 MCV 95.1 fl (80-96) 07/28/19 06:50 MCH 31.0 pg (25.7-33.7) 07/28/19 06:50 MCHC 32.6 g/dl (32.0-35.9) 07/28/19 06:50 RDW 17.8 % (11.9-15.9) H 07/28/19 06:50 Plt Count 273 K/MM3 (134-434) D 07/28/19 06:50 MPV 9.0 fl (7.5-11.1) D 07/28/19 06:50 Sodium 140 mmol/L (136-145) 07/28/19 06:50 Potassium 4.1 mmol/L (3.5-5.1) 07/28/19 06:50 Chloride 109 mmol/L (98-107) H 07/28/19 06:50 Carbon Dioxide 25 mmol/L (21-32) 07/28/19 06:50 Anion Gap 6 MMOL/L (8-16) L 07/28/19 06:50 BUN 18.8 mg/dL (7-18) H 07/28/19 06:50 Creatinine 1.4 mg/dL (0.55-1.3) H 07/28/19 06:50 Est GFR (CKD-EPI)AfAm 65.55 07/28/19 06:50 Est GFR (CKD-EPI)NonAf 56.56 07/28/19 06:50 Random Glucose 103 mg/dL (74-106) 07/28/19 06:50 Calcium 8.6 mg/dL (8.5-10.1) 07/28/19 06:50 Total Bilirubin 1.0 mg/dL (0.2-1) 07/28/19 06:50 AST 52 U/L (15-37) H 07/28/19 06:50 ALT 48 U/L (13-61) 07/28/19 06:50 Alkaline Phosphatase 89 U/L (45-117) 07/28/19 06:50 Total Protein 6.7 g/dl (6.4-8.2) 07/28/19 06:50 Albumin 3.2 g/dl (3.4-5.0) L 07/28/19 06:50 RPR Titer Nonreactive (NONREACTIVE) 07/28/19 06:50 lab noted Assessment: 07/30/19 11:42 alcohol withdrawal patient was released that right calf "bone culture" negative a month ago Plan: librium regiment
[2019-07-30] MEDS: LIDOCAINE PATCH REMOVAL MC SCH (23:02)
[2019-07-30] MEDS: THIAMINE HCL 100 MG TABLET (FP) PO SCH (23:03)
[2019-07-31] MEDS: chlordiazePOXIDE HCL 10 MG CAPSULE PO SCH ×2 (05:40→17:48)
[2019-07-31] MEDS: APIXABAN 5 MG TABLET PO SCH ×2 (10:23→22:14)
[2019-07-31] MEDS: PRENATAL VITAMINS W/ FOLIC ACID TABLET (FP) PO SCH (10:24)
[2019-07-31] MEDS: LIDOCAINE 5% TOPICAL PATCH TP SCH (10:24)
[2019-07-31] MEDS: PETROLATUM, WHITE 30 GM TUBE TP SCH (10:24)
--- NOTE | 2019-07-31 10:53 | PN ---
[facility] CIWA - CIWA Score Nausea/Vomitin-No Nausea/No Vomiting Muscle Tremors: 1-None Visible, but [place] Anxiety: 1-Mildly Anxious Agitation: 1-Slight > Activity Paroxysmal Sweats: 1-Minimal Palms Moist Orientation: 0-Oriented Tacttile Disturbances: 0-None Auditory Disturbances: 0-None Visual Disturbances: 0-None Headache: 0-None Present CIWA-Ar Total Score: 4 [facility] Progress Note (SOAP) Subjective: 54 years old male admitted on 07/27/19 for alcohol withdrawal sx management treating with librium detox regiment feeling better today change left lower inner calf chronic wound [facility] teaching on sterile gauze and purnima bandage discolor the lower extremities that the patient aware of peripheral vascular disease encourage smoking cessation Objective: 07/31/19 10:54 Vital Signs Temperature 98.0 F 07/31/19 08:08 Pulse Rate 86 07/31/19 08:08 Respiratory Rate 18 07/31/19 08:08 Blood Pressure 153/92 07/31/19 08:08 O2 Sat by Pulse Oximetry (%) Laboratory Last Values WBC 5.1 K/mm3 (4.0-10.0) 07/28/19 06:50 RBC 3.65 M/mm3 (4.00-5.60) L 07/28/19 06:50 Hgb 11.3 GM/dL (11.7-16.9) L 07/28/19 06:50 Hct 34.7 % (35.4-49) L 07/28/19 06:50 MCV 95.1 fl (80-96) 07/28/19 06:50 MCH 31.0 pg (25.7-33.7) 07/28/19 06:50 MCHC 32.6 g/dl (32.0-35.9) 07/28/19 06:50 RDW 17.8 % (11.9-15.9) H 07/28/19 06:50 Plt Count 273 K/MM3 (134-434) D 07/28/19 06:50 MPV 9.0 fl (7.5-11.1) D 07/28/19 06:50 Sodium 140 mmol/L (136-145) 07/28/19 06:50 Potassium 4.1 mmol/L (3.5-5.1) 07/28/19 06:50 Chloride 109 mmol/L (98-107) H 07/28/19 06:50 Carbon Dioxide 25 mmol/L (21-32) 07/28/19 06:50 Anion Gap 6 MMOL/L (8-16) L 07/28/19 06:50 BUN 18.8 mg/dL (7-18) H 07/28/19 06:50 Creatinine 1.4 mg/dL (0.55-1.3) H 07/28/19 06:50 Est GFR (CKD-EPI)AfAm 65.55 07/28/19 06:50 Est GFR (CKD-EPI)NonAf 56.56 07/28/19 06:50 Random Glucose 103 mg/dL (74-106) 07/28/19 06:50 Calcium 8.6 mg/dL (8.5-10.1) 07/28/19 06:50 Total Bilirubin 1.0 mg/dL (0.2-1) 07/28/19 06:50 AST 52 U/L (15-37) H 07/28/19 06:50 ALT 48 U/L (13-61) 07/28/19 06:50 Alkaline Phosphatase 89 U/L (45-117) 07/28/19 06:50 Total Protein 6.7 g/dl (6.4-8.2) 07/28/19 06:50 Albumin 3.2 g/dl (3.4-5.0) L 07/28/19 06:50 RPR Titer Nonreactive (NONREACTIVE) 07/28/19 06:50 lab noted 07/31/19 10:56 bp elevation resume lisinopril Assessment: 07/31/19 10:56 alcohol withdrawal Plan: librium regiment
[2019-07-31] MEDS: LISINOPRIL 10 MG TABLET (FP) PO SCH (11:32)
[2019-07-31] MEDS: THIAMINE HCL 100 MG TABLET (FP) PO SCH (22:15)
[2019-07-31] MEDS: LIDOCAINE PATCH REMOVAL MC SCH (22:17)
[2019-08-01] MEDS ORDERED: chlordiazePOXIDE HCL 10 MG CAPSULE PO ONE (05:00)
[2019-08-01 09:27] VITALS: BP 124/80; PULSE 98; TEMP 98.4
--- NOTE | 2019-08-01 10:33 | DS ---
[facility] Detox Discharge Summary Admission Date: 07/27/19 Discharge Date: 08/01/19 - History Present History: Alcohol Dependence Additional Comments: 54 years old male admitted on 07/27/19 for alcohol withdrawal sx management treated with librium detox regiment patient has completed the librium regiment and tolerated well alert oriented x 3 cardiac s1s2 regular rate rhythm respiratory clear lungs bilaterally on auscultation right lower inner calf chronic ulcerative wound dressing at home by the patient and who agrees to visit his wound doctor once a month skin warm and dry chronic peripheral vascular disorder discoloration on both legs - Physical Exam Results Vital Signs: Vital Signs Temperature 98.4 F 08/01/19 08:42 Pulse Rate 98 H 08/01/19 08:42 Respiratory Rate 20 08/01/19 08:42 Blood Pressure 124/80 08/01/19 08:42 O2 Sat by Pulse Oximetry (%) Pertinent Admission Physical Exam Findings: alcohol withdrawal Laboratory Last Values WBC 5.1 K/mm3 (4.0-10.0) 07/28/19 06:50 RBC 3.65 M/mm3 (4.00-5.60) L 07/28/19 06:50 Hgb 11.3 GM/dL (11.7-16.9) L 07/28/19 06:50 Hct 34.7 % (35.4-49) L 07/28/19 06:50 MCV 95.1 fl (80-96) 07/28/19 06:50 MCH 31.0 pg (25.7-33.7) 07/28/19 06:50 MCHC 32.6 g/dl (32.0-35.9) 07/28/19 06:50 RDW 17.8 % (11.9-15.9) H 07/28/19 06:50 Plt Count 273 K/MM3 (134-434) D 07/28/19 06:50 MPV 9.0 fl (7.5-11.1) D 07/28/19 06:50 Sodium 140 mmol/L (136-145) 07/28/19 06:50 Potassium 4.1 mmol/L (3.5-5.1) 07/28/19 06:50 Chloride 109 mmol/L (98-107) H 07/28/19 06:50 Carbon Dioxide 25 mmol/L (21-32) 07/28/19 06:50 Anion Gap 6 MMOL/L (8-16) L 07/28/19 06:50 BUN 18.8 mg/dL (7-18) H 07/28/19 06:50 Creatinine 1.4 mg/dL (0.55-1.3) H 07/28/19 06:50 Est GFR (CKD-EPI)AfAm 65.55 07/28/19 06:50 Est GFR (CKD-EPI)NonAf 56.56 07/28/19 06:50 Random Glucose 103 mg/dL (74-106) 07/28/19 06:50 Calcium 8.6 mg/dL (8.5-10.1) 07/28/19 06:50 Total Bilirubin 1.0 mg/dL (0.2-1) 07/28/19 06:50 AST 52 U/L (15-37) H 07/28/19 06:50 ALT 48 U/L (13-61) 07/28/19 06:50 Alkaline Phosphatase 89 U/L (45-117) 07/28/19 06:50 Total Protein 6.7 g/dl (6.4-8.2) 07/28/19 06:50 Albumin 3.2 g/dl (3.4-5.0) L 07/28/19 06:50 RPR Titer Nonreactive (NONREACTIVE) 07/28/19 06:50 lab noted - Treatment Hospital Course: Detox Protocol Followed, Detoxed Safely, Responded well, Discharged Condition Good, Rehab Referral Accepted Patient has Accepted [facility] Referral [facility] - Medication Discharge Medications: Ambulatory Orders Apixaban [Eliquis -] 5 mg PO BID 07/27/19 Lisinopril 10 mg PO DAILY 08/01/19 - Diagnosis (1) Alcohol dependence with uncomplicated withdrawal Status: Acute (2) Edema of both legs Status: Chronic (3) Nicotine dependence Status: Acute Qualifiers: Nicotine product type: cigarettes Substance use status: in withdrawal Qualified Code(s): F17.213 - Nicotine dependence, cigarettes, with withdrawal (4) PVD (peripheral vascular disease) Status: Chronic (5) Stasis leg ulcer Status: Chronic Qualifiers: Laterality: right Qualified Code(s): I83.019 - Varicose veins of right lower extremity with ulcer of unspecified site; L97.919 - Non-pressure chronic ulcer of unspecified part of right lower leg with unspecified severity (6) Ulcer of right leg Status: Chronic Qualifiers: Non-pressure ulcer stage: with fat layer exposed Qualified Code(s): L97.912 - Non-pressure chronic ulcer of unspecified part of right lower leg with fat layer exposed (7) Substance induced mood disorder Status: Suspected - AMA Did Patient Leave Against Medical Advice: No CIWA Score - CIWA Score Nausea/Vomitin-No Nausea/No Vomiting Muscle Tremors: 1-None Visible, but [place] Anxiety: 0-No Anxiety, at Ease Agitation: 0-Normal Activity Paroxysmal Sweats: 1-Minimal Palms Moist Orientation: 0-Oriented Tacttile Disturbances: 0-None Auditory Disturbances: 0-None Visual Disturbances: 0-None Headache: 0-None Present CIWA-Ar Total Score: 2
[2019-08-01] MEDS: PRENATAL VITAMINS W/ FOLIC ACID TABLET (FP) PO SCH (10:38)
[2019-08-01] MEDS: APIXABAN 5 MG TABLET PO SCH (10:38)
[2019-08-01] MEDS: LISINOPRIL 10 MG TABLET (FP) PO SCH (10:38)
[2019-08-01] MEDS: LIDOCAINE 5% TOPICAL PATCH TP SCH (10:39)
[2019-08-01] MEDS: PETROLATUM, WHITE 30 GM TUBE TP SCH (10:40)
== END 2019-08-01 11:35 | disposition other institution (70) | DRG 775 ==
LOC: YASAS 12:13 → Y3N 13:28
PROVIDERS: ADMIT Allergy & Immunology; ATTEND Allergy & Immunology
PROC: HZ2ZZZZ Detoxification Services for Substance Abuse Treatment (ICD-10-PCS; principal; 2019-07-27)
DX: F10.230 Alcohol dependence with withdrawal, uncomplicated (principal); F17.213 Nicotine dependence, cigarettes, with withdrawal; F19.24 Other psychoactive substance dependence with psychoactive substance-induced mood disorder; I73.9 Peripheral vascular disease, unspecified; R60.0 Localized edema; I83.019 Varicose veins of right lower extremity with ulcer of unspecified site; L97.912 Non-pressure chronic ulcer of unspecified part of right lower leg with fat layer exposed; D64.9 Anemia, unspecified; Z91.018 Allergy to other foods
CPT/HCPCS: 36415; 80053; 85027; 86593

== ENCOUNTER 2019-08-01 11:38 | Inpatient (IN) | payer OTHER ==
[2019-08-01] MEDS ORDERED: IBUPROFEN 400 MG TABLET (FP) PO PRN (13:26)
[2019-08-01] MEDS ORDERED: guaiFENesin 200 MG/10 ML 10 ML UNIT-DOSE CUPS PO PRN (13:26)
[2019-08-01] MEDS ORDERED: MAGNESIUM CITRATE 300 ML BOTTLE PO PRN (13:26)
[2019-08-01] MEDS ORDERED: NICOTINE POLACRILEX 2 MG GUM BUC PRN (13:26)
[2019-08-01] MEDS ORDERED: P-EPHED 60MG/TRIPROLIDI 2.5MG TABLET PO PRN (13:26)
[2019-08-01] MEDS ORDERED: MENTHOL/PHENOL 1 EACH UD MM PRN (13:26)
[2019-08-01] MEDS ORDERED: hydrOXYzine PAMOATE 25 MG CAPSULE (FP) PO PRN (13:26)
[2019-08-01] MEDS ORDERED: MAGNESIUM HYDROX 2400MG/30ML ORAL SUSPENSION 30 ML CUP PO PRN (13:26)
[2019-08-01] MEDS ORDERED: LOPERAMIDE HCL 2 MG CAPSULE PO PRN (13:26)
[2019-08-01] MEDS ORDERED: MAG HYDROX/AL HYDROX/SIMETH 30 ML UNIT-DOSE CUP PO PRN (13:26)
--- NOTE | 2019-08-01 13:36 | PN ---
[facility] Progress Note Note: Patient transferred from detox. Stable condition. problem list, home medication , previous orders, labs reviewed. P/E: general: no apparent distress HEENTM: normocephalic Lungs: clear Heart: s1 s2 Skin: decubiti, right medial aspect of malleous, Continue JOSE treatment, maintain safety
[2019-08-01] MEDS ORDERED: COLLOIDAL OATMEAL 1 BAR EACH TP PRN (13:50)
[2019-08-01] MEDS ORDERED: AMMONIUM LACTATE 12% LOTION 225 GM BOTTLE TP PRN (13:50)
[2019-08-01] MEDS: APIXABAN 5 MG TABLET PO SCH (22:00)
[2019-08-01] MEDS ORDERED: MELATONIN 5 MG TABLETS PO PRN (22:00)
[2019-08-01] MEDS: THIAMINE HCL 100 MG TABLET (FP) PO SCH (22:00)
[2019-08-02] MEDS: LISINOPRIL 10 MG TABLET (FP) PO SCH (10:02)
[2019-08-02] MEDS: PRENATAL VITAMINS W/ FOLIC ACID TABLET (FP) PO SCH (10:02)
[2019-08-02] MEDS: APIXABAN 5 MG TABLET PO SCH ×2 (10:02→21:31)
[2019-08-02] MEDS: ACETAMINOPHEN 325 MG TABLET (FP) PO PRN ×2 (10:03→14:42)
[2019-08-02] MEDS: THIAMINE HCL 100 MG TABLET (FP) PO SCH (21:31)
[2019-08-03] MEDS ORDERED: PT OWN MED DRAWER 7, Y5N ONE ×2 (08:32→19:51)
[2019-08-03] MEDS: ACETAMINOPHEN 325 MG TABLET (FP) PO PRN (09:36)
[2019-08-03] MEDS: PRENATAL VITAMINS W/ FOLIC ACID TABLET (FP) PO SCH (09:36)
[2019-08-03] MEDS: APIXABAN 5 MG TABLET PO SCH ×2 (09:36→21:08)
[2019-08-03] MEDS: LISINOPRIL 10 MG TABLET (FP) PO SCH (09:36)
[2019-08-03] MEDS: THIAMINE HCL 100 MG TABLET (FP) PO SCH (21:08)
[2019-08-04] MEDS: PRENATAL VITAMINS W/ FOLIC ACID TABLET (FP) PO SCH (09:55)
[2019-08-04] MEDS: LISINOPRIL 10 MG TABLET (FP) PO SCH (09:55)
[2019-08-04] MEDS: APIXABAN 5 MG TABLET PO SCH ×2 (09:55→21:40)
[2019-08-04] MEDS: THIAMINE HCL 100 MG TABLET (FP) PO SCH (21:40)
[2019-08-05] MEDS: PRENATAL VITAMINS W/ FOLIC ACID TABLET (FP) PO SCH (10:05)
[2019-08-05] MEDS: APIXABAN 5 MG TABLET PO SCH ×2 (10:05→21:12)
[2019-08-05] MEDS: LISINOPRIL 10 MG TABLET (FP) PO SCH (10:05)
[2019-08-05] MEDS: THIAMINE HCL 100 MG TABLET (FP) PO SCH (21:12)
[2019-08-06] MEDS: PRENATAL VITAMINS W/ FOLIC ACID TABLET (FP) PO SCH (09:57)
[2019-08-06] MEDS: APIXABAN 5 MG TABLET PO SCH ×2 (09:57→21:29)
[2019-08-06] MEDS: LISINOPRIL 10 MG TABLET (FP) PO SCH (09:57)
[2019-08-06] MEDS: METHOCARBAMOL 500 MG TABLET PO SCH (10:04)
[2019-08-06] MEDS: ACETAMINOPHEN 500 MG TABLET (FP) PO PRN (11:04)
--- NOTE | 2019-08-06 11:39 | PN ---
[facility] Progress Note (SOAP) Subjective: Patient requesting to d/c eliquis. PMHx of PVD and right medial ulcer. Objective: General: no apparent distress Lungs: clear Heart: s1 s2 Extremities: Right leg w/ edema, medial maleous ulcer. 08/06/19 11:40 Assessment: PVD, right leg edema Lower extremity pain 08/06/19 11:41 08/06/19 11:42 Plan: Informed patient that discontinuation of eliquis needed to occur when the patient was seen and evaluated by his PCP. Increased tylenol, added muscle relaxant. Will continue to monitor.
[2019-08-06] MEDS: THIAMINE HCL 100 MG TABLET (FP) PO SCH (21:29)
[2019-08-07] MEDS: PRENATAL VITAMINS W/ FOLIC ACID TABLET (FP) PO SCH (10:09)
[2019-08-07] MEDS: LISINOPRIL 10 MG TABLET (FP) PO SCH (10:09)
[2019-08-07] MEDS: METHOCARBAMOL 500 MG TABLET PO SCH (10:09)
[2019-08-07] MEDS: APIXABAN 5 MG TABLET PO SCH ×2 (10:09→21:08)
[2019-08-07] MEDS: THIAMINE HCL 100 MG TABLET (FP) PO SCH (21:08)
[2019-08-08] MEDS: PRENATAL VITAMINS W/ FOLIC ACID TABLET (FP) PO SCH (09:46)
[2019-08-08] MEDS: LISINOPRIL 10 MG TABLET (FP) PO SCH (09:46)
[2019-08-08] MEDS: APIXABAN 5 MG TABLET PO SCH ×2 (09:46→21:13)
[2019-08-08] MEDS: METHOCARBAMOL 500 MG TABLET PO SCH (09:46)
[2019-08-08] MEDS: THIAMINE HCL 100 MG TABLET (FP) PO SCH (21:13)
[2019-08-09] MEDS: METHOCARBAMOL 500 MG TABLET PO SCH (09:50)
[2019-08-09] MEDS: APIXABAN 5 MG TABLET PO SCH ×2 (09:50→21:13)
[2019-08-09] MEDS: ACETAMINOPHEN 500 MG TABLET (FP) PO PRN (09:50)
[2019-08-09] MEDS: LISINOPRIL 10 MG TABLET (FP) PO SCH (09:50)
[2019-08-09] MEDS: PRENATAL VITAMINS W/ FOLIC ACID TABLET (FP) PO SCH (09:50)
[2019-08-09] MEDS: THIAMINE HCL 100 MG TABLET (FP) PO SCH (21:13)
[2019-08-10] MEDS: PRENATAL VITAMINS W/ FOLIC ACID TABLET (FP) PO SCH (09:51)
[2019-08-10] MEDS: APIXABAN 5 MG TABLET PO SCH ×2 (09:51→21:28)
[2019-08-10] MEDS: LISINOPRIL 10 MG TABLET (FP) PO SCH (09:51)
[2019-08-10] MEDS: METHOCARBAMOL 500 MG TABLET PO SCH (09:51)
[2019-08-10] MEDS: THIAMINE HCL 100 MG TABLET (FP) PO SCH (21:28)
[2019-08-11] MEDS: PRENATAL VITAMINS W/ FOLIC ACID TABLET (FP) PO SCH (09:57)
[2019-08-11] MEDS: LISINOPRIL 10 MG TABLET (FP) PO SCH (09:57)
[2019-08-11] MEDS: METHOCARBAMOL 500 MG TABLET PO SCH (09:57)
[2019-08-11] MEDS: APIXABAN 5 MG TABLET PO SCH ×2 (09:57→21:14)
[2019-08-11] MEDS: ACETAMINOPHEN 500 MG TABLET (FP) PO PRN (12:04)
[2019-08-11] MEDS: THIAMINE HCL 100 MG TABLET (FP) PO SCH (21:14)
[2019-08-12] MEDS: APIXABAN 5 MG TABLET PO SCH ×2 (10:03→21:36)
[2019-08-12] MEDS: LISINOPRIL 10 MG TABLET (FP) PO SCH (10:03)
[2019-08-12] MEDS: METHOCARBAMOL 500 MG TABLET PO SCH (10:03)
[2019-08-12] MEDS: PRENATAL VITAMINS W/ FOLIC ACID TABLET (FP) PO SCH (10:03)
[2019-08-12] MEDS: THIAMINE HCL 100 MG TABLET (FP) PO SCH (21:36)
[2019-08-13] MEDS: APIXABAN 5 MG TABLET PO SCH ×2 (09:51→21:11)
[2019-08-13] MEDS: METHOCARBAMOL 500 MG TABLET PO SCH (09:51)
[2019-08-13] MEDS: ACETAMINOPHEN 500 MG TABLET (FP) PO PRN (09:52)
[2019-08-13] MEDS: PRENATAL VITAMINS W/ FOLIC ACID TABLET (FP) PO SCH (09:52)
[2019-08-13] MEDS: LISINOPRIL 10 MG TABLET (FP) PO SCH (09:52)
[2019-08-13] MEDS: THIAMINE HCL 100 MG TABLET (FP) PO SCH (21:11)
[2019-08-14] MEDS: LISINOPRIL 10 MG TABLET (FP) PO SCH (10:24)
[2019-08-14] MEDS: APIXABAN 5 MG TABLET PO SCH ×2 (10:24→21:29)
[2019-08-14] MEDS: METHOCARBAMOL 500 MG TABLET PO SCH (10:24)
[2019-08-14] MEDS: PRENATAL VITAMINS W/ FOLIC ACID TABLET (FP) PO SCH (10:24)
[2019-08-14] MEDS: THIAMINE HCL 100 MG TABLET (FP) PO SCH (21:29)
[2019-08-15] MEDS: LISINOPRIL 10 MG TABLET (FP) PO SCH (09:52)
[2019-08-15] MEDS: METHOCARBAMOL 500 MG TABLET PO SCH (09:52)
[2019-08-15] MEDS: PRENATAL VITAMINS W/ FOLIC ACID TABLET (FP) PO SCH (09:52)
[2019-08-15] MEDS: APIXABAN 5 MG TABLET PO SCH ×2 (09:52→21:34)
[2019-08-15] MEDS: THIAMINE HCL 100 MG TABLET (FP) PO SCH (21:34)
[2019-08-16] MEDS ORDERED: PT OWN MED DRAWER 7, Y5N ONE ×2 (08:39→10:15)
[2019-08-16] MEDS: APIXABAN 5 MG TABLET PO SCH ×2 (10:13→21:29)
[2019-08-16] MEDS: METHOCARBAMOL 500 MG TABLET PO SCH (10:13)
[2019-08-16] MEDS: LISINOPRIL 10 MG TABLET (FP) PO SCH (10:13)
[2019-08-16] MEDS: PRENATAL VITAMINS W/ FOLIC ACID TABLET (FP) PO SCH (10:19)
[2019-08-16] MEDS: THIAMINE HCL 100 MG TABLET (FP) PO SCH (21:30)
[2019-08-17] MEDS ORDERED: PT OWN MED DRAWER 7, Y5N ONE (08:34)
[2019-08-17] MEDS: APIXABAN 5 MG TABLET PO SCH ×2 (10:00→21:14)
[2019-08-17] MEDS: PRENATAL VITAMINS W/ FOLIC ACID TABLET (FP) PO SCH (10:01)
[2019-08-17] MEDS: METHOCARBAMOL 500 MG TABLET PO SCH (10:01)
[2019-08-17] MEDS: LISINOPRIL 10 MG TABLET (FP) PO SCH (10:01)
[2019-08-17] MEDS: THIAMINE HCL 100 MG TABLET (FP) PO SCH (21:14)
[2019-08-18] MEDS: METHOCARBAMOL 500 MG TABLET PO SCH (10:10)
[2019-08-18] MEDS: APIXABAN 5 MG TABLET PO SCH ×2 (10:10→21:17)
[2019-08-18] MEDS: PRENATAL VITAMINS W/ FOLIC ACID TABLET (FP) PO SCH (10:10)
[2019-08-18] MEDS: LISINOPRIL 10 MG TABLET (FP) PO SCH (10:10)
[2019-08-18] MEDS: THIAMINE HCL 100 MG TABLET (FP) PO SCH (21:17)
[2019-08-19] MEDS: APIXABAN 5 MG TABLET PO SCH ×2 (09:30→21:03)
[2019-08-19] MEDS: LISINOPRIL 10 MG TABLET (FP) PO SCH (09:30)
[2019-08-19] MEDS: PRENATAL VITAMINS W/ FOLIC ACID TABLET (FP) PO SCH (09:30)
[2019-08-19] MEDS: METHOCARBAMOL 500 MG TABLET PO SCH (09:30)
[2019-08-19] MEDS: THIAMINE HCL 100 MG TABLET (FP) PO SCH (21:03)
[2019-08-20] MEDS: APIXABAN 5 MG TABLET PO SCH ×2 (09:25→21:16)
[2019-08-20] MEDS: METHOCARBAMOL 500 MG TABLET PO SCH (09:25)
[2019-08-20] MEDS: LISINOPRIL 10 MG TABLET (FP) PO SCH (09:25)
[2019-08-20] MEDS: PRENATAL VITAMINS W/ FOLIC ACID TABLET (FP) PO SCH (09:25)
[2019-08-20] MEDS: AMINO ACIDS/PROTEIN HYDROLYS 30 ML LIQUID.PKT PO SCH (17:53)
[2019-08-20] MEDS: THIAMINE HCL 100 MG TABLET (FP) PO SCH (22:38)
[2019-08-21] MEDS: AMINO ACIDS/PROTEIN HYDROLYS 30 ML LIQUID.PKT PO SCH ×2 (07:58→17:55)
[2019-08-21] MEDS: LISINOPRIL 10 MG TABLET (FP) PO SCH (09:41)
[2019-08-21] MEDS: METHOCARBAMOL 500 MG TABLET PO SCH (09:41)
[2019-08-21] MEDS: APIXABAN 5 MG TABLET PO SCH ×2 (09:41→21:06)
[2019-08-21] MEDS: PRENATAL VITAMINS W/ FOLIC ACID TABLET (FP) PO SCH (09:42)
[2019-08-21] MEDS: THIAMINE HCL 100 MG TABLET (FP) PO SCH (21:07)
[2019-08-22] MEDS: AMINO ACIDS/PROTEIN HYDROLYS 30 ML LIQUID.PKT PO SCH ×2 (07:20→17:50)
[2019-08-22] MEDS: PRENATAL VITAMINS W/ FOLIC ACID TABLET (FP) PO SCH (09:26)
[2019-08-22] MEDS: APIXABAN 5 MG TABLET PO SCH ×2 (09:26→21:51)
[2019-08-22] MEDS: LISINOPRIL 10 MG TABLET (FP) PO SCH (09:26)
[2019-08-22] MEDS: METHOCARBAMOL 500 MG TABLET PO SCH (09:26)
[2019-08-22] MEDS: THIAMINE HCL 100 MG TABLET (FP) PO SCH (21:52)
[2019-08-23] MEDS: AMINO ACIDS/PROTEIN HYDROLYS 30 ML LIQUID.PKT PO SCH ×2 (07:30→16:43)
[2019-08-23] MEDS: METHOCARBAMOL 500 MG TABLET PO SCH (09:40)
[2019-08-23] MEDS: LISINOPRIL 10 MG TABLET (FP) PO SCH (09:40)
[2019-08-23] MEDS: APIXABAN 5 MG TABLET PO SCH ×2 (09:40→21:06)
[2019-08-23] MEDS: PRENATAL VITAMINS W/ FOLIC ACID TABLET (FP) PO SCH (09:41)
[2019-08-23] MEDS: THIAMINE HCL 100 MG TABLET (FP) PO SCH (21:06)
[2019-08-24] MEDS: AMINO ACIDS/PROTEIN HYDROLYS 30 ML LIQUID.PKT PO SCH ×2 (07:32→16:36)
[2019-08-24] MEDS: LISINOPRIL 10 MG TABLET (FP) PO SCH (09:43)
[2019-08-24] MEDS: PRENATAL VITAMINS W/ FOLIC ACID TABLET (FP) PO SCH (09:43)
[2019-08-24] MEDS: APIXABAN 5 MG TABLET PO SCH ×2 (09:43→21:30)
[2019-08-24] MEDS: METHOCARBAMOL 500 MG TABLET PO SCH (09:43)
[2019-08-24] MEDS: ACETAMINOPHEN 500 MG TABLET (FP) PO PRN (11:00)
[2019-08-24] MEDS: THIAMINE HCL 100 MG TABLET (FP) PO SCH (21:30)
[2019-08-25] MEDS: AMINO ACIDS/PROTEIN HYDROLYS 30 ML LIQUID.PKT PO SCH ×2 (07:15→17:04)
[2019-08-25] MEDS: METHOCARBAMOL 500 MG TABLET PO SCH (09:24)
[2019-08-25] MEDS: APIXABAN 5 MG TABLET PO SCH ×2 (09:24→21:07)
[2019-08-25] MEDS: LISINOPRIL 10 MG TABLET (FP) PO SCH (09:24)
[2019-08-25] MEDS: PRENATAL VITAMINS W/ FOLIC ACID TABLET (FP) PO SCH (09:24)
[2019-08-25] MEDS: THIAMINE HCL 100 MG TABLET (FP) PO SCH (21:08)
[2019-08-26] MEDS: AMINO ACIDS/PROTEIN HYDROLYS 30 ML LIQUID.PKT PO SCH ×2 (07:48→19:40)
[2019-08-26] MEDS: APIXABAN 5 MG TABLET PO SCH ×2 (09:33→21:55)
[2019-08-26] MEDS: LISINOPRIL 10 MG TABLET (FP) PO SCH (09:33)
[2019-08-26] MEDS: PRENATAL VITAMINS W/ FOLIC ACID TABLET (FP) PO SCH (09:34)
[2019-08-26] MEDS: METHOCARBAMOL 500 MG TABLET PO SCH (09:35)
[2019-08-26] MEDS: THIAMINE HCL 100 MG TABLET (FP) PO SCH (21:55)
[2019-08-27] MEDS: AMINO ACIDS/PROTEIN HYDROLYS 30 ML LIQUID.PKT PO SCH ×2 (07:56→17:25)
[2019-08-27] MEDS: APIXABAN 5 MG TABLET PO SCH ×2 (09:44→21:09)
[2019-08-27] MEDS: METHOCARBAMOL 500 MG TABLET PO SCH (09:44)
[2019-08-27] MEDS: PRENATAL VITAMINS W/ FOLIC ACID TABLET (FP) PO SCH (09:44)
[2019-08-27] MEDS: LISINOPRIL 10 MG TABLET (FP) PO SCH (09:44)
[2019-08-27] MEDS: THIAMINE HCL 100 MG TABLET (FP) PO SCH (21:09)
[2019-08-28] MEDS: AMINO ACIDS/PROTEIN HYDROLYS 30 ML LIQUID.PKT PO SCH ×2 (07:05→18:23)
[2019-08-28] MEDS: LISINOPRIL 10 MG TABLET (FP) PO SCH (10:36)
[2019-08-28] MEDS: APIXABAN 5 MG TABLET PO SCH ×2 (10:36→21:32)
[2019-08-28] MEDS: METHOCARBAMOL 500 MG TABLET PO SCH (10:36)
[2019-08-28] MEDS: PRENATAL VITAMINS W/ FOLIC ACID TABLET (FP) PO SCH (10:36)
--- NOTE | 2019-08-28 12:34 | DS ---
[facility] Rehab Discharge Summary - [facility] Discharge Summary Admission Date: 08/01/19 Discharge Date: 08/28/19 - History Present History: Alcohol dependence Pertinent Past History: 54 yo gentleman in rehab after completing detox- last here 12/04/18 - did not f/u with outpatient rehab and states he relapsed a few weeks later. Denies ever being on MAT such as Vivitrol. Denies seizures but does have black outs. Was in [facility] in May for withdrawal symptoms but he states that they had closed the detox and 'sent me on my way'. He sees [facility] doctors for wound care of his RLE vascular ulcer. Patient lives in a snf. He is on disability for his leg ulcers. - Discharge Physical Exam Vital Signs: Vital Signs Temperature 98 F 08/28/19 06:49 Pulse Rate 76 08/28/19 09:30 Respiratory Rate 18 08/28/19 06:49 Blood Pressure 147/76 08/28/19 09:30 O2 Sat by Pulse Oximetry (%) Pertinent Admission Physical Exam Findings: Physical General Appearance: no apparent distress HEENTM: Normocephalic, Respiratory: respirations unlabored Neck: supple, Cardiology:s1s2 Abdominal: +BS, Soft,obese Musculoskeletal: full range of Motion, full weight bearing, steady gait Extremities: hyperpigmentation both legs - 1+ edema both lower extremities Neurological: Cn 2-12 intact Integumentary: RLE with hyperpigmentation and large shallow ulcer approximately 9cm x 4cm - healthy granulation tissue with serous drainage - surrounding skin is dry, thickenened, scaling - Treatment Discharge Condition: Outpatient referral accepted (Patient will go to [facility]. medically stable for discharge.) Hospital Course: Patient attended groups, had 1:1 with his counselor. He had no acute or urgent medical problems while in rehab. The patient managed his decubiti without assistance from the nursing staff. This was at his request. - Medication Discharge Medications: Ambulatory Orders Apixaban [Eliquis -] 5 mg PO BID 07/27/19 Lisinopril 10 mg PO DAILY 08/01/19 - Discharge Instructions Diet, activity, other medical instructions: Diet: As tolerated Activity: as tolerated Other medical instructions: Please follow up with HEL[facility] program. Please follow up with PCP for care of RLE decubiti. - Diagnosis (1) Alcohol dependence with uncomplicated withdrawal Current Visit: No Status: Chronic (2) PVD (peripheral vascular disease) Current Visit: No Status: Chronic (3) Ulcer of right leg Current Visit: No Status: Chronic Qualifiers: Non-pressure ulcer stage: limited to breakdown of skin Qualified Code(s): L97.911 - Non-pressure chronic ulcer of unspecified part of right lower leg limited to breakdown of skin - Follow-up Referral Minutes to complete discharge: 20 - AMA Did Patient Leave Against Medical Advice: No
[2019-08-28] MEDS ORDERED: PT OWN MED DRAWER 7, Y5N ONE (14:27)
[2019-08-28] MEDS: ACETAMINOPHEN 500 MG TABLET (FP) PO PRN (14:28)
[2019-08-28] MEDS: THIAMINE HCL 100 MG TABLET (FP) PO SCH (21:32)
[2019-08-29 06:48] VITALS: TEMP 97.7
[2019-08-29] MEDS: AMINO ACIDS/PROTEIN HYDROLYS 30 ML LIQUID.PKT PO SCH (07:04)
[2019-08-29 09:11] VITALS: BP 150/79; PULSE 74
[2019-08-29] MEDS: LISINOPRIL 10 MG TABLET (FP) PO SCH (09:54)
[2019-08-29] MEDS: APIXABAN 5 MG TABLET PO SCH (09:54)
[2019-08-29] MEDS: METHOCARBAMOL 500 MG TABLET PO SCH (09:55)
[2019-08-29] MEDS: PRENATAL VITAMINS W/ FOLIC ACID TABLET (FP) PO SCH (09:55)
== END 2019-08-29 10:20 | disposition home or self-care (01) | DRG 772 ==
LOC: YASAS 11:38 → Y3W 11:39
PROVIDERS: ADMIT Allergy & Immunology; ATTEND Allergy & Immunology
PROC: HZ42ZZZ Group Counseling for Substance Abuse Treatment, Cognitive-Behavioral (ICD-10-PCS; principal; 2019-08-01)
DX: F10.20 Alcohol dependence, uncomplicated (principal); L97.911 Non-pressure chronic ulcer of unspecified part of right lower leg limited to breakdown of skin; I73.89 Other specified peripheral vascular diseases; I83.009 Varicose veins of unspecified lower extremity with ulcer of unspecified site; Z79.01 Long term (current) use of anticoagulants; Z88.8 Allergy status to other drugs, medicaments and biological substances; Z91.018 Allergy to other foods

== ENCOUNTER 2021-09-08 17:23 | Inpatient (IN) | payer OTHER ==
[2021-09-08 18:37] VITALS: BMI 34.7
[2021-09-08] MEDS ORDERED: ACETAMINOPHEN 325 MG TABLET (FP) PO PRN (20:02)
[2021-09-08] MEDS ORDERED: MENTHOL/PHENOL 1 EACH UD MM PRN (20:02)
[2021-09-08] MEDS ORDERED: MAG HYDROX/AL HYDROX/SIMETH 30 ML UNIT-DOSE CUP PO PRN (20:02)
[2021-09-08] MEDS ORDERED: LOPERAMIDE HCL 2 MG CAPSULE PO PRN (20:02)
[2021-09-08] MEDS ORDERED: BISMUTH SUBSALICYLATE 524 MG/30 ML PO PRN (20:02)
[2021-09-08] MEDS ORDERED: IBUPROFEN 400 MG TABLET (FP) PO PRN (20:02)
[2021-09-08] MEDS ORDERED: MAGNESIUM HYDROX 2400MG/30ML ORAL SUSPENSION 30 ML CUP PO PRN (20:02)
[2021-09-08] MEDS ORDERED: NICOTINE POLACRILEX 2 MG GUM BUC PRN (20:02)
[2021-09-08] MEDS ORDERED: MAGNESIUM CITRATE 300 ML BOTTLE PO PRN (20:02)
[2021-09-08] MEDS ORDERED: ONDANSETRON *ODT* 4 MG TABLET SL PRN (20:02)
[2021-09-08] MEDS: MELATONIN 5 MG TABLETS PO SCH (22:50)
[2021-09-08] MEDS: THIAMINE HCL 100 MG TABLET (FP) PO SCH (22:50)
[2021-09-09] MEDS ORDERED: chlordiazePOXIDE HCL 25 MG CAPSULE PO PRN (10:03)
[2021-09-09] MEDS ORDERED: LISINOPRIL 10 MG TABLET PO SCH (10:15)
[2021-09-09] MEDS: PRENATAL VITAMINS W/ FOLIC ACID TABLET (FP) PO SCH (10:24)
[2021-09-09] MEDS: chlordiazePOXIDE HCL 25 MG CAPSULE PO SCH ×3 (10:26→22:16)
[2021-09-09] MEDS: NICOTINE 21 MG/24 HOURS TOPICAL PATCH TD SCH (10:28)
[2021-09-09] MEDS: MELATONIN 5 MG TABLETS PO SCH (22:17)
[2021-09-09] MEDS: THIAMINE HCL 100 MG TABLET (FP) PO SCH (22:17)
[2021-09-09] MEDS: APIXABAN 5 MG TABLET PO SCH (22:17)
[2021-09-10] MEDS: chlordiazePOXIDE HCL 25 MG CAPSULE PO SCH ×4 (06:28→22:29)
[2021-09-10] MEDS: CHLORTHALIDONE 25 MG TABLET PO SCH (10:37)
[2021-09-10] MEDS: amLODIPine BESYLATE 5 MG TABLET (FP) PO SCH (10:37)
[2021-09-10] MEDS: METHOCARBAMOL 500 MG TABLET PO PRN (10:37)
[2021-09-10] MEDS: PRENATAL VITAMINS W/ FOLIC ACID TABLET (FP) PO SCH (10:37)
[2021-09-10] MEDS: APIXABAN 5 MG TABLET PO SCH ×2 (10:37→22:29)
[2021-09-10] MEDS: NICOTINE 21 MG/24 HOURS TOPICAL PATCH TD SCH (10:38)
[2021-09-10 11:14] LABS: ALBUMIN 2.9 g/dl (3.4-5.0); BLOOD UREA NITROGEN 18.2 mg/dL (7-18); CALCIUM 8.6 mg/dL (8.5-10.1)
[2021-09-10 11:17] LABS: CREATININE 1.6 mg/dL (0.55-1.3)
[2021-09-10 11:19] LABS: BILIRUBIN,TOTAL 0.4 mg/dL (0.2-1); TOT PROT 7.2 g/dl (6.4-8.2)
[2021-09-10 11:29] LABS: HEMATOCRIT 34.6 % (35.4-49); HEMOGLOBIN 11.7 GM/dL (11.7-16.9); MCH 32.1 pg (25.7-33.7); MCHC 33.7 g/dl (32.0-35.9); MEAN CELL VOLUME 95.3 fl (80-96); MEAN PLT VOLUME 8.3 fl (7.5-11.1); PLATELET COUNT 159 10^3/uL (134-434); RBC 3.64 M/mm3 (4.00-5.60); RDW 18.4 % (11.9-15.9); WHITE BLOOD COUNT 4.4 K/mm3 (4.0-10.0)
[2021-09-10 14:08] LABS: SARS-CoV-2 NAA Not Detected (Not Detected)
[2021-09-10] MEDS: THIAMINE HCL 100 MG TABLET (FP) PO SCH (22:29)
[2021-09-10] MEDS: MELATONIN 5 MG TABLETS PO SCH (22:29)
[2021-09-11] MEDS: chlordiazePOXIDE HCL 25 MG CAPSULE PO SCH ×4 (05:30→23:53)
[2021-09-11] MEDS: amLODIPine BESYLATE 5 MG TABLET (FP) PO SCH (10:27)
[2021-09-11] MEDS: APIXABAN 5 MG TABLET PO SCH ×2 (10:27→23:05)
[2021-09-11] MEDS: NICOTINE 21 MG/24 HOURS TOPICAL PATCH TD SCH (10:27)
[2021-09-11] MEDS: PRENATAL VITAMINS W/ FOLIC ACID TABLET (FP) PO SCH (10:28)
[2021-09-11] MEDS: CHLORTHALIDONE 25 MG TABLET PO SCH (10:28)
[2021-09-11] MEDS: MELATONIN 5 MG TABLETS PO SCH (23:53)
[2021-09-11] MEDS: THIAMINE HCL 100 MG TABLET (FP) PO SCH (23:53)
[2021-09-12] MEDS ORDERED: chlordiazePOXIDE HCL 10 MG CAPSULE PO PRN
[2021-09-12] MEDS: chlordiazePOXIDE HCL 10 MG CAPSULE PO SCH ×4 (05:38→22:53)
[2021-09-12] MEDS: CHLORTHALIDONE 25 MG TABLET PO SCH (09:46)
[2021-09-12] MEDS: METHOCARBAMOL 500 MG TABLET PO PRN (09:46)
[2021-09-12] MEDS: amLODIPine BESYLATE 5 MG TABLET (FP) PO SCH (09:46)
[2021-09-12] MEDS: NICOTINE 21 MG/24 HOURS TOPICAL PATCH TD SCH (09:46)
[2021-09-12] MEDS: PRENATAL VITAMINS W/ FOLIC ACID TABLET (FP) PO SCH (09:46)
[2021-09-12] MEDS: APIXABAN 5 MG TABLET PO SCH ×2 (09:46→22:47)
[2021-09-12] MEDS: ACETAMINOPHEN 325 MG TABLET (FP) PO PRN ×2 (09:47→14:37)
[2021-09-12] MEDS: THIAMINE HCL 100 MG TABLET (FP) PO SCH (22:47)
[2021-09-12] MEDS: MELATONIN 5 MG TABLETS PO SCH (22:53)
[2021-09-13] MEDS: chlordiazePOXIDE HCL 10 MG CAPSULE PO SCH ×2 (05:43→17:42)
[2021-09-13] MEDS: amLODIPine BESYLATE 5 MG TABLET (FP) PO SCH (10:19)
[2021-09-13] MEDS: METHOCARBAMOL 500 MG TABLET PO PRN (10:19)
[2021-09-13] MEDS: PRENATAL VITAMINS W/ FOLIC ACID TABLET (FP) PO SCH (10:19)
[2021-09-13] MEDS: NICOTINE 21 MG/24 HOURS TOPICAL PATCH TD SCH (10:20)
[2021-09-13] MEDS: CHLORTHALIDONE 25 MG TABLET PO SCH (10:20)
[2021-09-13] MEDS: APIXABAN 5 MG TABLET PO SCH ×2 (10:20→22:33)
[2021-09-13] MEDS: ACETAMINOPHEN 325 MG TABLET (FP) PO PRN ×2 (12:11→20:00)
[2021-09-13] MEDS: THIAMINE HCL 100 MG TABLET (FP) PO SCH (22:33)
[2021-09-13] MEDS: MELATONIN 5 MG TABLETS PO SCH (22:38)
[2021-09-14] MEDS ORDERED: chlordiazePOXIDE HCL 10 MG CAPSULE PO ONE (05:00)
[2021-09-14] MEDS ORDERED: amLODIPine BESYLATE 10 MG TABLET (FP) PO SCH (06:00)
[2021-09-14 09:20] VITALS: BP 113/66; PULSE 97; TEMP 97.8
[2021-09-14] MEDS: PRENATAL VITAMINS W/ FOLIC ACID TABLET (FP) PO SCH (10:02)
[2021-09-14] MEDS: APIXABAN 5 MG TABLET PO SCH (10:03)
[2021-09-14] MEDS: NICOTINE 21 MG/24 HOURS TOPICAL PATCH TD SCH (10:03)
[2021-09-14] MEDS: CHLORTHALIDONE 25 MG TABLET PO SCH (10:03)
[2021-09-14 14:08] LABS: SARS-CoV-2 NAA Not Detected (Not Detected)
== END 2021-09-14 10:20 | disposition other institution (70) | DRG 775 ==
LOC: YASAS 17:23 → Y6N 21:43
PROVIDERS: ADMIT Allergy & Immunology; ATTEND Allergy & Immunology
PROC: HZ2ZZZZ Detoxification Services for Substance Abuse Treatment (ICD-10-PCS; principal; 2021-09-08)
DX: F10.230 Alcohol dependence with withdrawal, uncomplicated (principal); F17.213 Nicotine dependence, cigarettes, with withdrawal; F34.1 Dysthymic disorder; I10 Essential (primary) hypertension; I73.9 Peripheral vascular disease, unspecified; L97.911 Non-pressure chronic ulcer of unspecified part of right lower leg limited to breakdown of skin; R79.89 Other specified abnormal findings of blood chemistry; Z88.8 Allergy status to other drugs, medicaments and biological substances; Z91.018 Allergy to other foods
CPT/HCPCS: 36415; 80053; 82962; 85027; 86780; 87811; 93005; 93010; C9803; U0003; U0005

== ENCOUNTER 2021-09-14 10:34 | Inpatient (IN) | payer OTHER ==
[2021-09-14] MEDS ORDERED: NICOTINE POLACRILEX 2 MG GUM BUC PRN (11:56)
[2021-09-14] MEDS ORDERED: guaiFENesin 200 MG/10 ML 10 ML UNIT-DOSE CUPS PO PRN (11:56)
[2021-09-14] MEDS ORDERED: MENTHOL/PHENOL 1 EACH UD MM PRN (11:56)
[2021-09-14] MEDS ORDERED: LOPERAMIDE HCL 2 MG CAPSULE PO PRN (11:56)
[2021-09-14] MEDS ORDERED: MAGNESIUM HYDROX 2400MG/30ML ORAL SUSPENSION 30 ML CUP PO PRN (11:56)
[2021-09-14] MEDS ORDERED: IBUPROFEN 400 MG TABLET (FP) PO PRN (11:56)
[2021-09-14] MEDS ORDERED: hydrOXYzine PAMOATE 25 MG CAPSULE (FP) PO PRN (11:56)
[2021-09-14] MEDS ORDERED: MAG HYDROX/AL HYDROX/SIMETH 30 ML UNIT-DOSE CUP PO PRN (11:56)
[2021-09-14] MEDS ORDERED: P-EPHED 60MG/TRIPROLIDI 2.5MG TABLET PO PRN (11:56)
[2021-09-14] MEDS ORDERED: MAGNESIUM CITRATE 300 ML BOTTLE PO PRN (11:56)
[2021-09-14] MEDS: NICOTINE 21 MG/24 HOURS TOPICAL PATCH TD SCH (14:03)
[2021-09-14] MEDS: THIAMINE HCL 100 MG TABLET (FP) PO SCH (21:10)
[2021-09-14] MEDS: MELATONIN 5 MG TABLETS PO PRN (21:10)
[2021-09-14] MEDS: APIXABAN 5 MG TABLET PO SCH (21:11)
[2021-09-14] MEDS: ACETAMINOPHEN 325 MG TABLET (FP) PO PRN (21:11)
[2021-09-15] MEDS: ACETAMINOPHEN 325 MG TABLET (FP) PO PRN (07:05)
[2021-09-15] MEDS: PRENATAL VITAMINS W/ FOLIC ACID TABLET (FP) PO SCH (10:33)
[2021-09-15] MEDS: amLODIPine BESYLATE 10 MG TABLET (FP) PO SCH (10:33)
[2021-09-15] MEDS: APIXABAN 5 MG TABLET PO SCH ×2 (10:33→21:24)
[2021-09-15] MEDS: CHLORTHALIDONE 25 MG TABLET PO SCH (10:33)
[2021-09-15] MEDS: NICOTINE 10 MG CARTRIDGE (INHALER) IH PRN ×2 (10:34→17:07)
[2021-09-15] MEDS: NICOTINE 21 MG/24 HOURS TOPICAL PATCH TD SCH (10:35)
[2021-09-15] MEDS: MELATONIN 5 MG TABLETS PO PRN (21:24)
[2021-09-15] MEDS: THIAMINE HCL 100 MG TABLET (FP) PO SCH (21:24)
[2021-09-16] MEDS: APIXABAN 5 MG TABLET PO SCH ×2 (10:13→23:05)
[2021-09-16] MEDS: CHLORTHALIDONE 25 MG TABLET PO SCH (10:13)
[2021-09-16] MEDS: PRENATAL VITAMINS W/ FOLIC ACID TABLET (FP) PO SCH (10:13)
[2021-09-16] MEDS: NICOTINE 21 MG/24 HOURS TOPICAL PATCH TD SCH (10:13)
[2021-09-16] MEDS: amLODIPine BESYLATE 10 MG TABLET (FP) PO SCH (10:13)
[2021-09-16] MEDS: ACETAMINOPHEN 325 MG TABLET (FP) PO PRN (11:59)
[2021-09-16] MEDS: NICOTINE 10 MG CARTRIDGE (INHALER) IH PRN (15:28)
[2021-09-16] MEDS: THIAMINE HCL 100 MG TABLET (FP) PO SCH (23:05)
[2021-09-17] MEDS: NICOTINE 10 MG CARTRIDGE (INHALER) IH PRN ×3 (06:39→22:19)
[2021-09-17] MEDS: amLODIPine BESYLATE 10 MG TABLET (FP) PO SCH (10:13)
[2021-09-17] MEDS: APIXABAN 5 MG TABLET PO SCH ×2 (10:14→21:55)
[2021-09-17] MEDS: NICOTINE 21 MG/24 HOURS TOPICAL PATCH TD SCH (10:14)
[2021-09-17] MEDS: PRENATAL VITAMINS W/ FOLIC ACID TABLET (FP) PO SCH (10:14)
[2021-09-17] MEDS: CHLORTHALIDONE 25 MG TABLET PO SCH (10:15)
[2021-09-17 14:30] LABS: CALCIUM 9.6 mg/dL (8.5-10.1)
[2021-09-17 14:31] LABS: BLOOD UREA NITROGEN 25.1 mg/dL (7-18)
[2021-09-17 14:34] LABS: CREATININE 1.6 mg/dL (0.55-1.3); PHOSPHOROUS 3.8 mg/dL (2.5-4.9)
[2021-09-17 14:38] LABS: ALBUMIN 3.6 g/dl (3.4-5.0)
[2021-09-17] MEDS: THIAMINE HCL 100 MG TABLET (FP) PO SCH (21:55)
[2021-09-18] MEDS: ACETAMINOPHEN 325 MG TABLET (FP) PO PRN ×2 (06:01→21:11)
[2021-09-18] MEDS: NICOTINE 10 MG CARTRIDGE (INHALER) IH PRN ×4 (06:02→21:12)
[2021-09-18] MEDS: NICOTINE 21 MG/24 HOURS TOPICAL PATCH TD SCH (09:39)
[2021-09-18] MEDS: PRENATAL VITAMINS W/ FOLIC ACID TABLET (FP) PO SCH (09:39)
[2021-09-18] MEDS: APIXABAN 5 MG TABLET PO SCH ×2 (09:40→21:11)
[2021-09-18] MEDS: CHLORTHALIDONE 25 MG TABLET PO SCH (09:40)
[2021-09-18] MEDS: amLODIPine BESYLATE 10 MG TABLET (FP) PO SCH (09:40)
[2021-09-18] MEDS: THIAMINE HCL 100 MG TABLET (FP) PO SCH (21:11)
[2021-09-18] MEDS: MELATONIN 5 MG TABLETS PO PRN (21:11)
[2021-09-19] MEDS: NICOTINE 10 MG CARTRIDGE (INHALER) IH PRN ×4 (06:56→21:24)
[2021-09-19] MEDS: PRENATAL VITAMINS W/ FOLIC ACID TABLET (FP) PO SCH (10:12)
[2021-09-19] MEDS: APIXABAN 5 MG TABLET PO SCH ×2 (10:12→21:24)
[2021-09-19] MEDS: CHLORTHALIDONE 25 MG TABLET PO SCH (10:12)
[2021-09-19] MEDS: NICOTINE 21 MG/24 HOURS TOPICAL PATCH TD SCH (10:13)
[2021-09-19] MEDS: amLODIPine BESYLATE 10 MG TABLET (FP) PO SCH (10:13)
[2021-09-19] MEDS: THIAMINE HCL 100 MG TABLET (FP) PO SCH (21:24)
[2021-09-19] MEDS: MELATONIN 5 MG TABLETS PO PRN (21:24)
[2021-09-20] MEDS: NICOTINE 10 MG CARTRIDGE (INHALER) IH PRN ×4 (06:38→20:53)
[2021-09-20] MEDS: CHLORTHALIDONE 25 MG TABLET PO SCH (09:58)
[2021-09-20] MEDS: APIXABAN 5 MG TABLET PO SCH ×2 (09:58→21:27)
[2021-09-20] MEDS: NICOTINE 21 MG/24 HOURS TOPICAL PATCH TD SCH (09:58)
[2021-09-20] MEDS: PRENATAL VITAMINS W/ FOLIC ACID TABLET (FP) PO SCH (09:58)
[2021-09-20] MEDS: amLODIPine BESYLATE 10 MG TABLET (FP) PO SCH (09:58)
[2021-09-20] MEDS: THIAMINE HCL 100 MG TABLET (FP) PO SCH (21:27)
[2021-09-20] MEDS: ACETAMINOPHEN 325 MG TABLET (FP) PO PRN (21:27)
[2021-09-21] MEDS: ACETAMINOPHEN 325 MG TABLET (FP) PO PRN (06:55)
[2021-09-21] MEDS: amLODIPine BESYLATE 10 MG TABLET (FP) PO SCH (10:26)
[2021-09-21] MEDS: APIXABAN 5 MG TABLET PO SCH ×2 (10:26→21:27)
[2021-09-21] MEDS: PRENATAL VITAMINS W/ FOLIC ACID TABLET (FP) PO SCH (10:26)
[2021-09-21] MEDS: CHLORTHALIDONE 25 MG TABLET PO SCH (10:27)
[2021-09-21] MEDS: NICOTINE 21 MG/24 HOURS TOPICAL PATCH TD SCH (10:27)
[2021-09-21] MEDS: MELATONIN 5 MG TABLETS PO PRN (21:26)
[2021-09-21] MEDS: THIAMINE HCL 100 MG TABLET (FP) PO SCH (21:26)
[2021-09-21] MEDS: NICOTINE 10 MG CARTRIDGE (INHALER) IH PRN (21:27)
[2021-09-22] MEDS: NICOTINE 10 MG CARTRIDGE (INHALER) IH PRN ×5 (06:19→19:42)
[2021-09-22] MEDS: PRENATAL VITAMINS W/ FOLIC ACID TABLET (FP) PO SCH (09:24)
[2021-09-22] MEDS: APIXABAN 5 MG TABLET PO SCH ×2 (09:25→21:11)
[2021-09-22] MEDS: amLODIPine BESYLATE 10 MG TABLET (FP) PO SCH (09:25)
[2021-09-22] MEDS: ACETAMINOPHEN 325 MG TABLET (FP) PO PRN (09:26)
[2021-09-22] MEDS: CHLORTHALIDONE 25 MG TABLET PO SCH (09:26)
[2021-09-22] MEDS: NICOTINE 21 MG/24 HOURS TOPICAL PATCH TD SCH (12:17)
[2021-09-22] MEDS: MELATONIN 5 MG TABLETS PO PRN (21:11)
[2021-09-22] MEDS: THIAMINE HCL 100 MG TABLET (FP) PO SCH (21:11)
[2021-09-23] MEDS: ACETAMINOPHEN 325 MG TABLET (FP) PO PRN (07:14)
[2021-09-23] MEDS: CHLORTHALIDONE 25 MG TABLET PO SCH (09:46)
[2021-09-23] MEDS: APIXABAN 5 MG TABLET PO SCH ×2 (09:46→21:23)
[2021-09-23] MEDS: PRENATAL VITAMINS W/ FOLIC ACID TABLET (FP) PO SCH (09:46)
[2021-09-23] MEDS: amLODIPine BESYLATE 10 MG TABLET (FP) PO SCH (09:46)
[2021-09-23] MEDS: NICOTINE 21 MG/24 HOURS TOPICAL PATCH TD SCH (09:46)
[2021-09-23] MEDS: NICOTINE 10 MG CARTRIDGE (INHALER) IH PRN ×4 (09:47→21:24)
[2021-09-23] MEDS: THIAMINE HCL 100 MG TABLET (FP) PO SCH (21:23)
[2021-09-23] MEDS: MELATONIN 5 MG TABLETS PO PRN (21:23)
[2021-09-24] MEDS: ACETAMINOPHEN 325 MG TABLET (FP) PO PRN (06:12)
[2021-09-24] MEDS: NICOTINE 10 MG CARTRIDGE (INHALER) IH PRN ×5 (06:14→21:19)
[2021-09-24] MEDS: APIXABAN 5 MG TABLET PO SCH ×2 (09:45→21:18)
[2021-09-24] MEDS: PRENATAL VITAMINS W/ FOLIC ACID TABLET (FP) PO SCH (09:46)
[2021-09-24] MEDS: NICOTINE 21 MG/24 HOURS TOPICAL PATCH TD SCH (09:46)
[2021-09-24] MEDS: amLODIPine BESYLATE 10 MG TABLET (FP) PO SCH (09:46)
[2021-09-24] MEDS: CHLORTHALIDONE 25 MG TABLET PO SCH (13:04)
[2021-09-24] MEDS ORDERED: COLLOIDAL OATMEAL 1 BAR EACH TP PRN (15:30)
[2021-09-24] MEDS: THIAMINE HCL 100 MG TABLET (FP) PO SCH (23:10)
[2021-09-24] MEDS: MINERAL OIL/PETROLAT/WATER TOPICAL CREAM 113 GM JAR TP SCH (23:10)
[2021-09-25] MEDS: NICOTINE 10 MG CARTRIDGE (INHALER) IH PRN ×4 (06:16→23:11)
[2021-09-25] MEDS: ACETAMINOPHEN 325 MG TABLET (FP) PO PRN (06:17)
[2021-09-25] MEDS: PRENATAL VITAMINS W/ FOLIC ACID TABLET (FP) PO SCH (09:29)
[2021-09-25] MEDS: APIXABAN 5 MG TABLET PO SCH ×2 (09:30→21:56)
[2021-09-25] MEDS: MINERAL OIL/PETROLAT/WATER TOPICAL CREAM 113 GM JAR TP SCH ×2 (09:30→21:56)
[2021-09-25] MEDS: NICOTINE 21 MG/24 HOURS TOPICAL PATCH TD SCH (09:30)
[2021-09-25] MEDS: amLODIPine BESYLATE 10 MG TABLET (FP) PO SCH (09:30)
[2021-09-25] MEDS: CHLORTHALIDONE 25 MG TABLET PO SCH (09:30)
[2021-09-25] MEDS: THIAMINE HCL 100 MG TABLET (FP) PO SCH (21:55)
[2021-09-26] MEDS: NICOTINE 10 MG CARTRIDGE (INHALER) IH PRN ×4 (06:20→21:23)
[2021-09-26] MEDS: CHLORTHALIDONE 25 MG TABLET PO SCH (10:07)
[2021-09-26] MEDS: amLODIPine BESYLATE 10 MG TABLET (FP) PO SCH (10:07)
[2021-09-26] MEDS: PRENATAL VITAMINS W/ FOLIC ACID TABLET (FP) PO SCH (10:07)
[2021-09-26] MEDS: APIXABAN 5 MG TABLET PO SCH ×2 (10:07→21:23)
[2021-09-26] MEDS: NICOTINE 21 MG/24 HOURS TOPICAL PATCH TD SCH (10:08)
[2021-09-26] MEDS: MINERAL OIL/PETROLAT/WATER TOPICAL CREAM 113 GM JAR TP SCH ×2 (10:10→21:24)
[2021-09-26] MEDS: THIAMINE HCL 100 MG TABLET (FP) PO SCH (21:23)
[2021-09-27] MEDS: NICOTINE 10 MG CARTRIDGE (INHALER) IH PRN ×4 (05:56→21:48)
[2021-09-27] MEDS: amLODIPine BESYLATE 10 MG TABLET (FP) PO SCH (09:43)
[2021-09-27] MEDS: PRENATAL VITAMINS W/ FOLIC ACID TABLET (FP) PO SCH (09:43)
[2021-09-27] MEDS: CHLORTHALIDONE 25 MG TABLET PO SCH (09:43)
[2021-09-27] MEDS: MINERAL OIL/PETROLAT/WATER TOPICAL CREAM 113 GM JAR TP SCH ×2 (09:44→21:43)
[2021-09-27] MEDS: NICOTINE 21 MG/24 HOURS TOPICAL PATCH TD SCH (09:44)
[2021-09-27] MEDS: APIXABAN 5 MG TABLET PO SCH ×2 (09:44→21:43)
[2021-09-27] MEDS: THIAMINE HCL 100 MG TABLET (FP) PO SCH (21:43)
[2021-09-28] MEDS: PRENATAL VITAMINS W/ FOLIC ACID TABLET (FP) PO SCH (09:56)
[2021-09-28] MEDS: MINERAL OIL/PETROLAT/WATER TOPICAL CREAM 113 GM JAR TP SCH ×2 (09:57→21:11)
[2021-09-28] MEDS: APIXABAN 5 MG TABLET PO SCH ×2 (09:57→21:11)
[2021-09-28] MEDS: CHLORTHALIDONE 25 MG TABLET PO SCH (09:57)
[2021-09-28] MEDS: NICOTINE 21 MG/24 HOURS TOPICAL PATCH TD SCH (09:57)
[2021-09-28] MEDS: amLODIPine BESYLATE 10 MG TABLET (FP) PO SCH (09:57)
[2021-09-28] MEDS: NICOTINE 10 MG CARTRIDGE (INHALER) IH PRN ×4 (09:57→23:03)
[2021-09-28 11:37] LABS: CALCIUM 9.1 mg/dL (8.5-10.1)
[2021-09-28 11:38] LABS: ALBUMIN 3.7 g/dl (3.4-5.0); BLOOD UREA NITROGEN 31.2 mg/dL (7-18)
[2021-09-28 11:41] LABS: CREATININE 1.9 mg/dL (0.55-1.3)
[2021-09-28 11:43] LABS: BILIRUBIN,TOTAL 0.4 mg/dL (0.2-1); TOT PROT 8.3 g/dl (6.4-8.2)
[2021-09-28] MEDS: THIAMINE HCL 100 MG TABLET (FP) PO SCH (21:11)
[2021-09-29] MEDS: NICOTINE 10 MG CARTRIDGE (INHALER) IH PRN ×4 (05:31→23:09)
[2021-09-29] MEDS: NICOTINE 21 MG/24 HOURS TOPICAL PATCH TD SCH (10:00)
[2021-09-29] MEDS: CHLORTHALIDONE 25 MG TABLET PO SCH (10:01)
[2021-09-29] MEDS: amLODIPine BESYLATE 10 MG TABLET (FP) PO SCH (10:01)
[2021-09-29] MEDS: APIXABAN 5 MG TABLET PO SCH ×2 (10:01→21:27)
[2021-09-29] MEDS: PRENATAL VITAMINS W/ FOLIC ACID TABLET (FP) PO SCH (10:02)
[2021-09-29] MEDS: MINERAL OIL/PETROLAT/WATER TOPICAL CREAM 113 GM JAR TP SCH ×2 (10:02→21:27)
[2021-09-29 10:56] LABS: BLOOD UREA NITROGEN 27.6 mg/dL (7-18)
[2021-09-29 10:57] LABS: ALBUMIN 3.6 g/dl (3.4-5.0)
[2021-09-29 10:59] LABS: CALCIUM 9.1 mg/dL (8.5-10.1); CREATININE 1.7 mg/dL (0.55-1.3); PHOSPHOROUS 2.6 mg/dL (2.5-4.9)
[2021-09-29] MEDS: THIAMINE HCL 100 MG TABLET (FP) PO SCH (21:27)
[2021-09-30] MEDS: NICOTINE 10 MG CARTRIDGE (INHALER) IH PRN ×5 (06:13→23:15)
[2021-09-30] MEDS: PRENATAL VITAMINS W/ FOLIC ACID TABLET (FP) PO SCH (10:03)
[2021-09-30] MEDS: APIXABAN 5 MG TABLET PO SCH ×2 (10:03→21:12)
[2021-09-30] MEDS: amLODIPine BESYLATE 10 MG TABLET (FP) PO SCH (10:03)
[2021-09-30] MEDS: CHLORTHALIDONE 25 MG TABLET PO SCH (10:04)
[2021-09-30] MEDS: MINERAL OIL/PETROLAT/WATER TOPICAL CREAM 113 GM JAR TP SCH ×2 (10:04→21:13)
[2021-09-30] MEDS: NICOTINE 21 MG/24 HOURS TOPICAL PATCH TD SCH (10:04)
[2021-09-30] MEDS: THIAMINE HCL 100 MG TABLET (FP) PO SCH (21:12)
[2021-10-01] MEDS: NICOTINE 10 MG CARTRIDGE (INHALER) IH PRN ×4 (06:00→21:32)
[2021-10-01] MEDS: ACETAMINOPHEN 325 MG TABLET (FP) PO PRN (06:00)
[2021-10-01] MEDS: CHLORTHALIDONE 25 MG TABLET PO SCH (09:53)
[2021-10-01] MEDS: APIXABAN 5 MG TABLET PO SCH ×2 (09:53→21:31)
[2021-10-01] MEDS: NICOTINE 21 MG/24 HOURS TOPICAL PATCH TD SCH (09:53)
[2021-10-01] MEDS: amLODIPine BESYLATE 10 MG TABLET (FP) PO SCH (09:53)
[2021-10-01] MEDS: MINERAL OIL/PETROLAT/WATER TOPICAL CREAM 113 GM JAR TP SCH ×2 (09:53→21:31)
[2021-10-01] MEDS: PRENATAL VITAMINS W/ FOLIC ACID TABLET (FP) PO SCH (09:53)
[2021-10-01] MEDS: THIAMINE HCL 100 MG TABLET (FP) PO SCH (21:31)
[2021-10-02] MEDS: NICOTINE 10 MG CARTRIDGE (INHALER) IH PRN ×4 (06:05→21:02)
[2021-10-02] MEDS: PRENATAL VITAMINS W/ FOLIC ACID TABLET (FP) PO SCH (09:19)
[2021-10-02] MEDS: NICOTINE 21 MG/24 HOURS TOPICAL PATCH TD SCH (09:19)
[2021-10-02] MEDS: amLODIPine BESYLATE 10 MG TABLET (FP) PO SCH (09:19)
[2021-10-02] MEDS: CHLORTHALIDONE 25 MG TABLET PO SCH (09:19)
[2021-10-02] MEDS: MINERAL OIL/PETROLAT/WATER TOPICAL CREAM 113 GM JAR TP SCH ×2 (09:19→21:03)
[2021-10-02] MEDS: APIXABAN 5 MG TABLET PO SCH ×2 (09:19→21:02)
[2021-10-02] MEDS: THIAMINE HCL 100 MG TABLET (FP) PO SCH (21:02)
[2021-10-03] MEDS: NICOTINE 10 MG CARTRIDGE (INHALER) IH PRN ×5 (05:54→23:02)
[2021-10-03] MEDS: CHLORTHALIDONE 25 MG TABLET PO SCH (09:26)
[2021-10-03] MEDS: MINERAL OIL/PETROLAT/WATER TOPICAL CREAM 113 GM JAR TP SCH ×2 (09:26→21:02)
[2021-10-03] MEDS: PRENATAL VITAMINS W/ FOLIC ACID TABLET (FP) PO SCH (09:26)
[2021-10-03] MEDS: APIXABAN 5 MG TABLET PO SCH ×2 (09:26→21:02)
[2021-10-03] MEDS: amLODIPine BESYLATE 10 MG TABLET (FP) PO SCH (09:26)
[2021-10-03] MEDS: NICOTINE 21 MG/24 HOURS TOPICAL PATCH TD SCH (09:27)
[2021-10-03] MEDS: THIAMINE HCL 100 MG TABLET (FP) PO SCH (21:02)
[2021-10-04] MEDS: NICOTINE 10 MG CARTRIDGE (INHALER) IH PRN ×3 (06:36→17:56)
[2021-10-04] MEDS: ACETAMINOPHEN 325 MG TABLET (FP) PO PRN (06:36)
[2021-10-04] MEDS: CHLORTHALIDONE 25 MG TABLET PO SCH (09:46)
[2021-10-04] MEDS: amLODIPine BESYLATE 10 MG TABLET (FP) PO SCH (09:47)
[2021-10-04] MEDS: PRENATAL VITAMINS W/ FOLIC ACID TABLET (FP) PO SCH (09:47)
[2021-10-04] MEDS: APIXABAN 5 MG TABLET PO SCH ×2 (09:47→21:34)
[2021-10-04] MEDS: NICOTINE 21 MG/24 HOURS TOPICAL PATCH TD SCH (09:48)
[2021-10-04] MEDS: MINERAL OIL/PETROLAT/WATER TOPICAL CREAM 113 GM JAR TP SCH ×2 (09:48→21:35)
[2021-10-04] MEDS: THIAMINE HCL 100 MG TABLET (FP) PO SCH (21:34)
[2021-10-05] MEDS: NICOTINE 10 MG CARTRIDGE (INHALER) IH PRN ×4 (05:39→21:10)
[2021-10-05] MEDS: amLODIPine BESYLATE 10 MG TABLET (FP) PO SCH (09:40)
[2021-10-05] MEDS: APIXABAN 5 MG TABLET PO SCH ×2 (09:40→21:10)
[2021-10-05] MEDS: PRENATAL VITAMINS W/ FOLIC ACID TABLET (FP) PO SCH (09:40)
[2021-10-05] MEDS: CHLORTHALIDONE 25 MG TABLET PO SCH (09:40)
[2021-10-05] MEDS: MINERAL OIL/PETROLAT/WATER TOPICAL CREAM 113 GM JAR TP SCH ×2 (09:41→21:10)
[2021-10-05] MEDS: NICOTINE 21 MG/24 HOURS TOPICAL PATCH TD SCH (09:41)
[2021-10-05] MEDS: SIMETHICONE 80 MG TAB.CHEW (FP) PO PRN (15:39)
[2021-10-05] MEDS: THIAMINE HCL 100 MG TABLET (FP) PO SCH (21:10)
[2021-10-06] MEDS: NICOTINE 10 MG CARTRIDGE (INHALER) IH PRN ×5 (03:15→23:05)
[2021-10-06] MEDS: APIXABAN 5 MG TABLET PO SCH ×2 (09:42→21:07)
[2021-10-06] MEDS: CHLORTHALIDONE 25 MG TABLET PO SCH (09:42)
[2021-10-06] MEDS: amLODIPine BESYLATE 10 MG TABLET (FP) PO SCH (09:42)
[2021-10-06] MEDS: PRENATAL VITAMINS W/ FOLIC ACID TABLET (FP) PO SCH (09:42)
[2021-10-06] MEDS: NICOTINE 21 MG/24 HOURS TOPICAL PATCH TD SCH (09:43)
[2021-10-06] MEDS: MINERAL OIL/PETROLAT/WATER TOPICAL CREAM 113 GM JAR TP SCH ×2 (09:43→21:07)
[2021-10-06] MEDS: SIMETHICONE 80 MG TAB.CHEW (FP) PO PRN (09:43)
[2021-10-06] MEDS: THIAMINE HCL 100 MG TABLET (FP) PO SCH (21:07)
[2021-10-07] MEDS: APIXABAN 5 MG TABLET PO SCH ×2 (09:25→21:05)
[2021-10-07] MEDS: amLODIPine BESYLATE 10 MG TABLET (FP) PO SCH (09:25)
[2021-10-07] MEDS: CHLORTHALIDONE 25 MG TABLET PO SCH (09:25)
[2021-10-07] MEDS: MINERAL OIL/PETROLAT/WATER TOPICAL CREAM 113 GM JAR TP SCH ×2 (09:25→21:05)
[2021-10-07] MEDS: PRENATAL VITAMINS W/ FOLIC ACID TABLET (FP) PO SCH (09:25)
[2021-10-07] MEDS: SIMETHICONE 80 MG TAB.CHEW (FP) PO PRN (09:26)
[2021-10-07] MEDS: NICOTINE 10 MG CARTRIDGE (INHALER) IH PRN ×3 (09:26→18:10)
[2021-10-07] MEDS: NICOTINE 21 MG/24 HOURS TOPICAL PATCH TD SCH (09:28)
[2021-10-07] MEDS: MELATONIN 5 MG TABLETS PO PRN (21:05)
[2021-10-07] MEDS: THIAMINE HCL 100 MG TABLET (FP) PO SCH (21:05)
[2021-10-08] MEDS: NICOTINE 10 MG CARTRIDGE (INHALER) IH PRN ×5 (05:46→21:20)
[2021-10-08] MEDS: APIXABAN 5 MG TABLET PO SCH ×2 (09:35→21:20)
[2021-10-08] MEDS: CHLORTHALIDONE 25 MG TABLET PO SCH (09:36)
[2021-10-08] MEDS: NICOTINE 21 MG/24 HOURS TOPICAL PATCH TD SCH (09:36)
[2021-10-08] MEDS: amLODIPine BESYLATE 10 MG TABLET (FP) PO SCH (09:36)
[2021-10-08] MEDS: PRENATAL VITAMINS W/ FOLIC ACID TABLET (FP) PO SCH (09:36)
[2021-10-08] MEDS: MINERAL OIL/PETROLAT/WATER TOPICAL CREAM 113 GM JAR TP SCH ×2 (09:37→21:20)
[2021-10-08] MEDS: THIAMINE HCL 100 MG TABLET (FP) PO SCH (21:20)
[2021-10-09] MEDS: ACETAMINOPHEN 325 MG TABLET (FP) PO PRN (05:50)
[2021-10-09] MEDS: NICOTINE 10 MG CARTRIDGE (INHALER) IH PRN ×3 (05:51→21:20)
[2021-10-09] MEDS: CHLORTHALIDONE 25 MG TABLET PO SCH (09:59)
[2021-10-09] MEDS: PRENATAL VITAMINS W/ FOLIC ACID TABLET (FP) PO SCH (09:59)
[2021-10-09] MEDS: amLODIPine BESYLATE 10 MG TABLET (FP) PO SCH (09:59)
[2021-10-09] MEDS: NICOTINE 21 MG/24 HOURS TOPICAL PATCH TD SCH (09:59)
[2021-10-09] MEDS: APIXABAN 5 MG TABLET PO SCH ×2 (09:59→21:20)
[2021-10-09] MEDS: MINERAL OIL/PETROLAT/WATER TOPICAL CREAM 113 GM JAR TP SCH ×2 (10:01→21:21)
[2021-10-09] MEDS: THIAMINE HCL 100 MG TABLET (FP) PO SCH (21:21)
[2021-10-10] MEDS: NICOTINE 10 MG CARTRIDGE (INHALER) IH PRN ×4 (07:11→19:01)
[2021-10-10] MEDS: CHLORTHALIDONE 25 MG TABLET PO SCH (10:11)
[2021-10-10] MEDS: APIXABAN 5 MG TABLET PO SCH ×2 (10:11→21:39)
[2021-10-10] MEDS: amLODIPine BESYLATE 10 MG TABLET (FP) PO SCH (10:11)
[2021-10-10] MEDS: PRENATAL VITAMINS W/ FOLIC ACID TABLET (FP) PO SCH (10:11)
[2021-10-10] MEDS: NICOTINE 21 MG/24 HOURS TOPICAL PATCH TD SCH (10:12)
[2021-10-10] MEDS: MINERAL OIL/PETROLAT/WATER TOPICAL CREAM 113 GM JAR TP SCH ×2 (10:28→21:39)
[2021-10-10] MEDS: THIAMINE HCL 100 MG TABLET (FP) PO SCH (21:39)
[2021-10-11] MEDS: NICOTINE 10 MG CARTRIDGE (INHALER) IH PRN ×5 (06:42→23:18)
[2021-10-11] MEDS: ACETAMINOPHEN 325 MG TABLET (FP) PO PRN (06:43)
[2021-10-11] MEDS: CHLORTHALIDONE 25 MG TABLET PO SCH (10:00)
[2021-10-11] MEDS: APIXABAN 5 MG TABLET PO SCH ×2 (10:00→21:16)
[2021-10-11] MEDS: NICOTINE 21 MG/24 HOURS TOPICAL PATCH TD SCH (10:01)
[2021-10-11] MEDS: MINERAL OIL/PETROLAT/WATER TOPICAL CREAM 113 GM JAR TP SCH ×2 (10:01→21:16)
[2021-10-11] MEDS: PRENATAL VITAMINS W/ FOLIC ACID TABLET (FP) PO SCH (10:01)
[2021-10-11] MEDS: amLODIPine BESYLATE 10 MG TABLET (FP) PO SCH (10:01)
[2021-10-11] MEDS: THIAMINE HCL 100 MG TABLET (FP) PO SCH (21:16)
[2021-10-12] MEDS: NICOTINE 10 MG CARTRIDGE (INHALER) IH PRN (05:51)
[2021-10-12 07:00] VITALS: BP 113/75; PULSE 85; TEMP 98.8
[2021-10-12] MEDS: ACETAMINOPHEN 325 MG TABLET (FP) PO PRN (07:40)
== END 2021-10-12 09:39 | disposition home or self-care (01) | DRG 772 ==
LOC: YASAS 10:34 → Y3W 10:37
PROVIDERS: ADMIT Allergy & Immunology; ATTEND Allergy & Immunology
PROC: HZ42ZZZ Group Counseling for Substance Abuse Treatment, Cognitive-Behavioral (ICD-10-PCS; principal; 2021-09-14)
DX: F10.20 Alcohol dependence, uncomplicated (principal); F17.210 Nicotine dependence, cigarettes, uncomplicated; L97.311 Non-pressure chronic ulcer of right ankle limited to breakdown of skin; I12.9 Hypertensive chronic kidney disease with stage 1 through stage 4 chronic kidney disease, or unspecified chronic kidney disease; N18.9 Chronic kidney disease, unspecified; I73.9 Peripheral vascular disease, unspecified
CPT/HCPCS: 36415; 80053; 80069; 82962; 83036